=== PATIENT | female | born 1975 | race Caucasian/White ===

== ENCOUNTER → 2016-08-15 | Outpatient (CLI) | payer BC, OTHER ==
[2014-11-19 05:19] VITALS: BP 123/75
[~2016-08-15] MED LIST: DOCU-109 PO; GADOBUTROL 10 MMOL/10 ML VIAL IV ONE; METH-38 PO; Oxycodone Hcl/Acetaminophen PO
--- NOTE | 2016-08-15 16:29 | RAD ---
MRI Lumbar Spine without and with contrast History: Low back pain with right leg radiculopathy for one week, previous surgery Technique: Multiplanar, multi sequential pre-and postcontrast MR imaging was performed of the lumbar spine. Contrast: 10 cc Gadavist Comparison: November 17, 2014 Findings: Lumbar vertebral body stature and AP alignment are maintained. There is again mild degenerative disc disease at L3-4 and L4-5, posterior annular tears at these levels. There is no significant marrow edema. Conus terminates at T12-L1. There is no nodular enhancement of the conus or cauda equina, no enhancement in the intervertebral disc spaces. There are small hemangiomas greatest of L4 and L3. L1-L2: Spinal canal and neural foramina are adequate. L2-L3: Neural foramina and spinal canal are adequate. L3-L4: There is enhancing signal abnormality in the anterior right lateral recess compatible with fibrosis with more focal indentation upon the ventral thecal sac in the right lateral recess, extent similar compared with the previous exam. There is again mild to moderate narrowing of the far right lateral recess. Neural foramina are adequate. L4-5: There is left laminectomy defect. Neural foramina are adequate. There is very mild enhancing fibrosis about the descending left L5 nerve root in the lateral recess, spinal canal overall adequate. Previously seen extrusion in the left lateral recess is no longer visualized. L5-S1: Spinal canal and the neural foramina are adequate. Impression: 1. There has been interval left laminectomy L4-5. Previously seen extrusion extending below the L4-5 intervertebral disc space in the left lateral recess is no longer visualized. 2. There is more focal indentation upon the ventral thecal sac in the right lateral recess at L3-4 although associated enhancement suggestive of fibrosis rather than protrusion, again [id number] right lateral recess stenosis similar compared with the previous exam. 3. There is mild degenerative disc disease L3-4 and L4-5. Electronically signed by: Alex Mosqueda MD (08/15/2016 4:26 PM)
== END | disposition home or self-care (01) ==
LOC: MRI 15:50
PROVIDERS: ATTEND Internal Medicine
DX: M51.36 Other intervertebral disc degeneration, lumbar region (principal)
CPT/HCPCS: 72158; A9585

== ENCOUNTER → 2016-10-24 | Outpatient (CLI) | payer BC ==
[2014-11-19 05:19] VITALS: BP 123/75
[~2016-10-24] MED LIST changes: -GADOBUTROL 10 MMOL/10 ML VIAL IV ONE; +GADOBUTROL 7.5 MMOL/7.5 ML VIAL INT ART ONE; +IOHEXOL 300 MG/ML 50 ML VIAL. INT ART ONE; +LIDOCAINE 1% Multi-Dose 20 ML VIAL. ID ONE
--- NOTE | 2016-10-24 14:19 | KCIC ---
HIP ARTHROGRAM RIGHT History: Right hip pain for 2 months Technique: Patient was informed of the risks to include pain, infection, bleeding, allergic reaction, blood vessel or nerve injury. All questions were answered. Patient signed a written consent form for right hip injection prior to MRI. Patient was placed in supine position on the fluoroscopy table. The external skin site overlying the right hip was prepped and draped in the usual sterile fashion. Betadine was utilized for cleansing solution. 1% lidocaine was utilized for local anesthesia to the depth of the right femoral neck. 22-gauge spinal needle was advanced under fluoroscopy to depth of the bone. A mixture of 10 cc saline, 0.1 cc Gadavist, 5 cc Omnipaque 300 were injected during fluoroscopic visualization. There is appropriate intra-articular position of needle tip. Needle was removed. There were no immediate complications. Patient was applied. Patient was transferred to MRI suite for MRI evaluation of the right hip. Fluoroscopy time 40 seconds, two fluoroscopic images Impression: 1. Technically successful right hip injection without immediate complication. Electronically signed by: Alex Mosqueda MD (10/24/2016 2:16 PM) [facility]
--- NOTE | 2016-10-25 10:06 | KCIC ---
Examination: MR arthrogram right hip HISTORY: History of right hip pain COMPARISON: None available TECHNIQUE: Multiplanar, multisequence MR imaging of the right hip were performed after arthrogram injection. FINDINGS: The right femoral head is within the acetabulum. The attachment of the hamstring tendon to the ischial tuberosity grossly appears intact. The attachment of the gluteal tendons to the greater trochanter grossly appears intact. The attachment of the iliopsoas tendon to the lesser trochanter grossly appears intact. The attachment of the rectus femoris tendon to the anterior inferior iliac spine is intact. There is no acute fracture identified. There is minimal superficial fraying of the superior labrum without obvious labral tear. The muscle bulk grossly appears unremarkable. There is minimal fraying of the cartilage of the right hip. IMPRESSION: 1. Minimal superficial fraying of the superior labrum without a obvious labral tear. 2. Grade 1 Chondromalacia right hip joint. Electronically signed by: Virgilio Ruiz MD (10/25/2016 10:03 AM) [facility]
== END | disposition home or self-care (01) ==
LOC: KCIC 12:40
PROVIDERS: ATTEND Internal Medicine
DX: M94.251 Chondromalacia, right hip (principal)
CPT/HCPCS: 73525; 73722; A9585; Q9967

== ENCOUNTER → 2016-11-14 | Outpatient (CLI) | payer BC ==
[2014-11-19 05:19] VITALS: BP 123/75
[~2016-11-14] MED LIST changes: -GADOBUTROL 7.5 MMOL/7.5 ML VIAL INT ART ONE; -IOHEXOL 300 MG/ML 50 ML VIAL. INT ART ONE; -LIDOCAINE 1% Multi-Dose 20 ML VIAL. ID ONE
--- NOTE | 2016-11-14 15:18 | KCIC ---
MRI of the thoracic spine without contrast 11/14/2016 CLINICAL HISTORY: Mid back pain with right leg weakness and numbness. TECHNIQUE: Unenhanced T1-weighted, T2-weighted and inversion recovery sagittal and T1-weighted and T2 weighted axial images of the thoracic spine were obtained. T2-weighted sagittal images of the cervical, thoracic and lumbar spine were obtained for localization purposes. FINDINGS: Minimal S-shaped curvature of the thoracolumbar spine is seen. Degenerative signal changes are seen involving all of the disks of the thoracic spine. Degenerative signal changes are seen within the marrow surrounding these discs. No area of abnormal signal intensity is seen involving the thoracic spinal cord. Degenerative changes are seen involving mid and lower thoracic disc spaces consisting of minimal to mild generalized disc bulges and degenerative changes involving the facet joints. A left paracentral focal disc protrusion is seen at T7-8. This measures 3 mm in AP diameter. A right paracentral focal disc herniation is seen at T8-9. This measures 4 mm in AP diameter. These findings do not result in significant central spinal canal or neural foraminal stenosis at any level. IMPRESSION: Degenerative changes are seen involving the lower thoracic disc spaces. These findings do not result in significant central spinal canal or neural foraminal stenosis at any level. Electronically signed by: Ivan Valentino MD (11/14/2016 3:15 PM) [facility] [place]
--- NOTE | 2016-11-14 15:35 | KCIC ---
MRI of the lumbar spine without contrast 11/14/2016 CLINICAL HISTORY: Low back pain with right leg weakness and numbness. History of lumbar spine surgery in 2015. TECHNIQUE: Unenhanced T1-weighted and T2-weighted sagittal and axial and inversion recovery sagittal images of the lumbar spine were obtained. FINDINGS: Comparison study is dated 08/15/2016. Very mild S-shaped curvature of the thoracolumbar spine is seen. Degenerative signal changes are seen involving the L3-4 and L4-5 discs predominantly. Degenerative signal changes are seen within the marrow surrounding these discs. The conus medullaris is normal in morphology, position, and signal characteristics. The L1-2 and L2-3 disc spaces are within normal limits. At the L3-4 disc space there is a mild generalized disc bulge. Degenerative changes are seen involving the facet joints bilaterally. There is mild ligamentum flavum hypertrophy bilaterally. There is prominence of the posterior epidural fat. Superimposed on the disc bulge is a right paracentral focal disc herniation. This measures 6 mm in AP diameter. This has increased in size since the previous examination where it measured 3 mm in AP diameter. These findings when combined result in mild to moderate right greater than left central spinal canal stenosis which has increased since the previous examination. The disc herniation appears to impinge to some degree upon the right L4 nerve root within the right lateral aspect of the central spinal canal. No neural foraminal stenosis is seen. At the L4-5 disc space the patient is post left hemilaminotomy. What appears to be epidural scarring surrounds the left aspect of the thecal sac and the left L5 nerve root. There is a mild generalized disc bulge. Degenerative changes are seen involving the facet joints bilaterally. There is mild right-sided ligamentum flavum hypertrophy. These findings do not result in significant central spinal canal or neural foraminal stenosis. At the L5-S1 disc space there is a minimal generalized disc bulge. Degenerative changes are seen involving the facet joints bilaterally. These findings do not result in significant central spinal canal or neural foraminal stenosis. IMPRESSION: 1. Post left hemilaminotomy at L4-5. 2. The changes of degenerative disc disease are seen involving the mid and lower lumbar spine. At the L3-4 disc space a right paracentral focal disc herniation is seen. This has increased in size since the previous examination. It contributes to mild to moderate right greater than left central spinal canal stenosis and appears to impinge upon the right L4 nerve root within the right lateral aspect of the central spinal canal. Electronically signed by: Ivan Valentino MD (11/14/2016 3:33 PM) [facility]
== END | disposition home or self-care (01) ==
LOC: KCIC MRI 12:09
PROVIDERS: ATTEND Orthopaedic Surgery
DX: M51.26 Other intervertebral disc displacement, lumbar region (principal); M47.894 Other spondylosis, thoracic region; R53.1 Weakness; R20.0 Anesthesia of skin
CPT/HCPCS: 72146; 72148

== ENCOUNTER → 2018-04-11 | Outpatient (CLI) | payer BC ==
[2016-11-17 11:00] VITALS: BP 100/60
[~2018-04-11] MED LIST changes: +CETI10TA22 PO; +CHOL500062 PO; +DULO60CA6 PO; +GABA300C18 PO; +GABA600T7 PO; +LEFLUNOMIDE20 MG PO; +LISD20CA4 PO; +LISI1TAB7 PO; +OMEP20CA9 PO; +POLY17PO29 PO; +PRED2.5T PO; +RANI150C PO
--- NOTE | 2018-04-11 11:17 | KCIC ---
EXAM: Pelvic sonogram. HISTORY: Dysmenorrhea. TECHNIQUE: Transabdominal and transvaginal sonographic imaging of the pelvis was performed. COMPARISON: None. FINDINGS: The uterus measures 8.9 x 5.3 x 5.7 cm. The endometrial stripe measures 2.6 mm in thickness. There are uterine fibroids within the right uterine fundus measuring 9 mm and 10 mm. The ovaries are normal in size and demonstrate normal blood flow. There is no pelvic free fluid. There are small bilateral ovarian follicles with a dominant left ovarian follicle/follicular cyst measuring 1.7 cm. IMPRESSION: 1. Small uterine fibroids. 2. Suspected dominant left ovarian follicle/follicular cyst measuring 1.7 cm. Electronically signed by: Anita Guadalpue MD (04/11/2018 11:14 AM) [facility]
== END | disposition home or self-care (01) ==
LOC: KCIC US 09:24
PROVIDERS: ATTEND Obstetrics & Gynecology
DX: D25.9 Leiomyoma of uterus, unspecified (principal)
CPT/HCPCS: 76830; 76856

== ENCOUNTER → 2018-07-02 | Day surgery (SDC) | payer BC ==
[~2018-07-02] MED LIST changes: +0.9 % SODIUM CHLORIDE 10 ML DISP.SYRIN. IV PRN; +ACET-704 PO; +ACET1TAB33 PO; +ACETAMINOPHEN/CODEINE 300/30MG TABLET. PO PRN; +CALCIUM CARBONATE 500 MG TAB.CHEW PO PRN; +CYAN100016 SL; +DILT240T8 PO; +DULO30CA2 PO; +FLUT9.9S NS; +GLYCOPYRROLATE 1 MG/5 ML VIAL. ONE; +IV RINGERS,LACTATED 1000ML 1,000 ML IV SCH; +KETOROLAC 30 MG/ML INJ FOR OR. INJ ONE; +LIDOCAINE 1% PF 2 ML VIAL. ID PRN; +MAG HYDROX/ALUMINUM HYD/SIMETH 30 ML ORAL.SUSP PO PRN; +MIDAZOLAM HCL/PF 2 MG/2 ML VIAL. ONE; +NALOXONE 0.4 MG/ML VIAL. IV PRN; +NEOSTIGMINE METHYLSULFATE 5 MG/5 ML SYRINGE. ONE; +OMEP20CA10 PO; -OMEP20CA9 PO; +ONDANSETRON PF 4 MG/2 ML VIAL. IV PRN; +SEVOFLURANE 31 TO 60 MINUTES. IH ONE; +SIMETHICONE 80 MG TAB.CHEW PO PRN; +TURM1CAP PO; +VASOPRESSIN 20 UNIT/ML VIAL. ONE; +diphenhydrAMINE 50 MG/ML VIAL IV PRN; +diphenhydrAMINE HCL 25 MG CAPSULE PO PRN; +fentaNYL PF VIAL 100 MCG/2 ML VIAL ONE
--- NOTE | 2018-07-02 10:09 | PDOC ---
BRIEF OPERATIVE NOTE Date: July 02, 2018 Pre-Op Diagnosis menorrhagia, dysmenorrhea Post-Op Diagnosis same Procedure Performed diagnostic hysteroscopy with novasure endometrial ablation Surgeon Dr. Velarde Anesthesiologist Dr. Lee Anesthesia Type: General Blood Loss < 5cc IV Fluid see anesthesia records Urine Output straight cath prior to procedure Specimens Obtained none Findings blood in uterus, no obvious cavity abnormalities, uterus sounded to 8cm Complications none Operative Note [id number] SHAAN VELARDE MD July 02, 2018 10:09
[2018-07-02 10:56] LABS: U PREG PATIENT NEGATIVE (NEG)
[2018-07-02 11:00] VITALS: BP 125/82
--- NOTE | 2018-07-02 11:38 | OP ---
DATE OF SURGERY: 07/02/2018 PREOPERATIVE DIAGNOSES: Menorrhagia, dysmenorrhea with negative biopsy in the office. POSTOPERATIVE DIAGNOSES: Menorrhagia, dysmenorrhea with negative biopsy in the office. PROCEDURE: Diagnostic hysteroscopy with NovaSure endometrial ablation. SURGEON: Shaan Velarde MD DOWEL POINTER: OR personnel. ANESTHESIA: General. ANESTHESIOLOGIST: Dr. Lee. ESTIMATED BLOOD LOSS: Less than 5 mL. URINE OUTPUT: With a straight cath prior to procedure. FINDINGS: Blood in the uterus, no obvious cavity abnormalities. The uterus sounded to 8 cm. COMPLICATIONS: None. DESCRIPTION OF PROCEDURE: This patient was taken to the operating room where general anesthesia was placed. The patient was placed in dorsal lithotomy position in [facility] The patient's vagina was prepped and draped in the normal sterile fashion and a straight cath urine was done prior to my arrival. Upon my arrival, a timeout was performed. Once everyone agreed, a weighted speculum was placed in the patient's vagina. A single-tooth tenaculum was used to grasp the anterior lip of the cervix. She was already dilated to a 6-7 with the Hegar dilators. The 8-9 slid in easily. She sounded to 8. The diagnostic hysteroscopy was performed. Once it was done, the NovaSure device was set at a functional cavity length of 5, the width settled at 3.7. K-wire was placed around the cuff and it was placed up against the cervix. The device was enabled. A cavity assessment check was performed. Once it passed the cavity assessment check, it went straight into the ablation process, which lasted 72 seconds. Once it was done, the device was removed. The tenaculum was removed. There was minimal bleeding. The weighted speculum was removed and the procedure was ended. The patient was awakened from anesthesia and brought to recovery room in stable condition. SHAAN VELARDE MD DR: KATTY/usman JOB#: [id number] / [id number]
== END | disposition home or self-care (01) ==
LOC: SURG 08:01
PROVIDERS: ATTEND Obstetrics & Gynecology
DX: N92.0 Excessive and frequent menstruation with regular cycle (principal); N94.6 Dysmenorrhea, unspecified; Z88.5 Allergy status to narcotic agent; Z88.8 Allergy status to other drugs, medicaments and biological substances; E66.9 Obesity, unspecified; Z68.30 Body mass index [BMI] 30.0-30.9, adult; K21.9 Gastro-esophageal reflux disease without esophagitis; I10 Essential (primary) hypertension; F32.9 Major depressive disorder, single episode, unspecified; Z98.890 Other specified postprocedural states; Z98.84 Bariatric surgery status; Z79.899 Other long term (current) drug therapy; Z82.49 Family history of ischemic heart disease and other diseases of the circulatory system; Z90.49 Acquired absence of other specified parts of digestive tract
CPT/HCPCS: 58563; 81025; J1885; J2250; J2710; J3010; J3490; J7030; J7120

== ENCOUNTER 2018-12-09 14:25 | Inpatient (IN) | payer BC ==
[~2018-12-09] VITALS: Ht 172.7 cm; Wt 105.3 kg
[~2018-12-09 14:25] MED LIST changes: -0.9 % SODIUM CHLORIDE 10 ML DISP.SYRIN. IV PRN; -ACETAMINOPHEN/CODEINE 300/30MG TABLET. PO PRN; -CALCIUM CARBONATE 500 MG TAB.CHEW PO PRN; -GLYCOPYRROLATE 1 MG/5 ML VIAL. ONE; -IV RINGERS,LACTATED 1000ML 1,000 ML IV SCH; -KETOROLAC 30 MG/ML INJ FOR OR. INJ ONE; +LEFL10TA13 PO; -LEFLUNOMIDE20 MG PO; -LIDOCAINE 1% PF 2 ML VIAL. ID PRN; +LISI1TAB20 PO; -LISI1TAB7 PO; -MAG HYDROX/ALUMINUM HYD/SIMETH 30 ML ORAL.SUSP PO PRN; -MIDAZOLAM HCL/PF 2 MG/2 ML VIAL. ONE; -NALOXONE 0.4 MG/ML VIAL. IV PRN; -NEOSTIGMINE METHYLSULFATE 5 MG/5 ML SYRINGE. ONE; -ONDANSETRON PF 4 MG/2 ML VIAL. IV PRN; -SEVOFLURANE 31 TO 60 MINUTES. IH ONE; -SIMETHICONE 80 MG TAB.CHEW PO PRN; -VASOPRESSIN 20 UNIT/ML VIAL. ONE; -diphenhydrAMINE 50 MG/ML VIAL IV PRN; -diphenhydrAMINE HCL 25 MG CAPSULE PO PRN; -fentaNYL PF VIAL 100 MCG/2 ML VIAL ONE
--- NOTE | 2018-12-09 14:58 | PHYS DOC ---
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 Patient states she is having numbness in this area too. Patient states she's had the same thing before and the next step is losing her bowel and bladder. Patient states is his happened before. Patient states that she called and talked to her spinal surgeon Dr. Isidro he stated to go into the emergency room and have a CT done. Review of Systems Review of Systems Musculoskeletal: left low back pain or joint pain [] Neurologic: Denies headache, Left leg focal weakness or Left leg inner leg sensory changes [] All other systems were reviewed and found to be within normal limits, except as documented in this note. Current Medications Current Medications Current Medications Medications (Trade) Dose Ordered Sig/Edwin Start Time Stop Time Status Last Admin Dose Admin Cyclobenzaprine HCl (Flexeril) 10 mg 1X ONCE 12/09/18 15:00 12/09/18 15:01 DC 12/09/18 15:32 10 MG Allergies Allergies Allergies Coded Allergies Type Severity Reaction Last Updated Verified hydrocodone Allergy Severe THROAT SWELLED UP 07/02/18 Yes fentanyl Allergy Intermediate PATCH ONLY 07/02/18 Yes metoclopramide Allergy Intermediate hives 07/02/18 Yes morphine Allergy Intermediate rash 07/02/18 Yes oxycodone Allergy Intermediate THROAT SWELLED UP 07/02/18 Yes prochlorperazine Allergy Intermediate lockjaw 07/02/18 Yes Physical Exam Physical Exam Constitutional: Well developed, well nourished, no acute distress, non-toxic appearance. [] Skin: Warm, dry, no erythema, no rash. [] Back: Left lower back tenderness, no CVA tenderness. [] Extremities: No tenderness, no cyanosis, no clubbing, Left leg ROM not intact, no edema. [] Neurologic: Alert and oriented X 3, normal motor function, abnormal sensory function to to left inner leg, Left leg focal deficits noted. [] Psychologic: Affect normal, judgement normal, mood normal. [] Current Patient Data Vital Signs Vital Signs Date Time Temp Pulse Resp B/P (MAP) Pulse Ox O2 Delivery O2 Flow Rate FiO2 12/09/18 15:10 98.3 79 16 132/76 (94) 95 Room Air 98.3 Lab Values Laboratory Tests Test 12/09/18 14:50 12/09/18 15:01 12/09/18 15:20 Urine Color Yellow Urine Clarity Clear Urine pH 5.5 Urine Specific Clayton 1.015 Urine Protein Negative mg/dL (NEG-TRACE) Urine Glucose (UA) Negative mg/dL (NEG) Urine Ketones (Stick) Negative mg/dL (NEG) Urine Blood Negative (NEG) Urine Nitrite Negative (NEG) Urine Bilirubin Negative (NEG) Urine Urobilinogen Dipstick 0.2 mg/dL (0.2 mg/dL) Urine Leukocyte Esterase Negative (NEG) Urine RBC 0 /HPF (0-2) Urine WBC 1-4 /HPF (0-4) Urine Squamous Epithelial Cells Few /LPF Urine Bacteria Few /HPF (0-FEW) Urine Hyaline Casts Occasional /HPF Urine Mucus Mod /LPF POC Urine HCG, Qualitative Hcg negative (Negative) White Blood Count 8.2 x10^3/uL (4.0-11.0) Red Blood Count 4.56 x10^6/uL (3.50-5.40) Hemoglobin 13.4 g/dL (12.0-15.5) Hematocrit 38.9 % (36.0-47.0) Mean Corpuscular Volume 85 fL (79-100) Mean Corpuscular Hemoglobin 29 pg (25-35) Mean Corpuscular Hemoglobin Concent 35 g/dL (31-37) Red Cell Distribution Width 13.6 % (11.5-14.5) Platelet Count 243 x10^3/uL (140-400) Neutrophils (%) (Auto) 80 % (31-73) H Lymphocytes (%) (Auto) 14 % (24-48) L Monocytes (%) (Auto) 4 % (0-9) Eosinophils (%) (Auto) 1 % (0-3) Basophils (%) (Auto) 1 % (0-3) Neutrophils # (Auto) 6.5 x10^3/uL (1.8-7.7) Lymphocytes # (Auto) 1.2 x10^3/uL (1.0-4.8) Monocytes # (Auto) 0.4 x10^3/uL (0.0-1.1) Eosinophils # (Auto) 0.1 x10^3/uL (0.0-0.7) Basophils # (Auto) 0.1 x10^3/uL (0.0-0.2) Sodium Level 141 mmol/L (136-145) Potassium Level 4.3 mmol/L (3.5-5.1) Chloride Level 104 mmol/L (98-107) Carbon Dioxide Level 26 mmol/L (21-32) Anion Gap 11 (6-14) Blood Urea Nitrogen 15 mg/dL (7-20) Creatinine 0.8 mg/dL (0.6-1.0) Estimated GFR (Cockcroft-Gault) 77.6 BUN/Creatinine Ratio 19 (6-20) Glucose Level 120 mg/dL (70-99) H Calcium Level 9.2 mg/dL (8.5-10.1) Total Bilirubin 0.3 mg/dL (0.2-1.0) Aspartate Amino Transferase (AST) 21 U/L (15-37) Alanine Aminotransferase (ALT) 30 U/L (14-59) Alkaline Phosphatase 107 U/L (46-116) Total Protein 7.4 g/dL (6.4-8.2) Albumin 3.4 g/dL (3.4-5.0) Albumin/Globulin Ratio 0.9 (1.0-1.7) L Laboratory Tests 12/09/18 15:20 Laboratory Tests 12/09/18 15:20 EKG EKG [] Radiology/Procedures Radiology/Procedures [] Impressions: [facility] [address] [place], [place] [id number] IMAGING REPORT Signed PATIENT: DESTINEE AMAYA ACCOUNT: [id number] : 1975 LOCATION: ER AGE: 43 SEX: F EXAM STATUS: REG ER ORD. PHYSICIAN: JAYE GONZALEZ APRN REASON: Back pain x couple of days, also need sacrum PROCEDURE: CT LUMBAR SPINE WO CONTRAST Axial noncontrast CT imaging of the lumbar spine. Comparison made with MRI of the spine from 04/14/2018. INDICATION: Back pain for a couple days. FINDINGS: No fracture, subluxation or dislocation. There is normal alignment of the lumbar spine. Postoperative changes from hemilaminectomy are again identified. There is mild subcutaneous scarring as well. Minimal degenerative changes are identified. Electronically signed by: Jas Muller MD (12/09/2018 3:26 PM) [facility] DICTATED and SIGNED BY: JAS MULLER MD DATE: 12/09/18 1526 Course & Med Decision Making Course & Med Decision Making Patient is unable to lift her left leg. I had to lift her left leg to put it up into the bed. Skin is pink warm and dry. Pedal pulses present. Cap refill is less than 3 seconds. No swelling in the extremity. Patient has tenderness to the left lower back. Patient states that she's been taking ibuprofen and Advil last was taken at noon. Patient is allergic to all other pain medications. Patient is given a Flexeril she states that the medication helps her pain. 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 Patient also has herniated disks. 1600: Patient loss control of bladder. Spoken to Dr. Isidro told him of my examination findings and of the CT findings. He states the patient needs an MRI tonight of the thoracic and lumbar without contrast. Patient will be admitted to Dr Oden. Dr Oden states he will order the MRI thoracic and Lumbar without contrast. CT Lumbar: No fracture, subluxation or dislocation. There is normal alignment of the lumbar spine. Postoperative changes from hemilaminectomy are again identified. There is mild subcutaneous scarring as well. Minimal degenerative changes are identified. Dragon Disclaimer Dragon Disclaimer This electronic medical record was generated, in whole or in part, using a voice recognition dictation system. Departure Departure Impression: Primary Impression: Back pain Additional Impression: Paresthesia Disposition: ADMITTED INPATIENT Admitting Physician: HIMS Condition: STABLE Referrals: TONY ALAN MD (PCP) Problem Qualifiers Primary Impression: Back pain Back pain location: low back pain Chronicity: chronic Back pain laterality: left Sciatica presence: without sciatica Qualified Codes: M54.5 - Low back pain; G89.29 - Other chronic pain JAYE GONZALEZ AIR MOVING TECHNICIAN Dec 09, 2018 14:58
[2018-12-09] MEDS ORDERED: CYCLOBENZAPRINE 10 MG TABLET. PO ONE (15:00)
[2018-12-09 15:27] LABS: BILIRUBIN,URINE NEGATIVE (NEG); CLARITY,URINE CLEAR; COLOR,URINE YELLOW; NITRITE,URINE NEGATIVE (NEG); PH,URINE 5.5; PROTEIN,URINE NEGATIVE (NEG-TRACE); UROBILINOGEN,URINE 0.2 mg/dL (0.2 mg/dL)
--- NOTE | 2018-12-09 15:29 | RAD ---
Axial noncontrast CT imaging of the lumbar spine. Comparison made with MRI of the spine from 04/14/2018. INDICATION: Back pain for a couple days. FINDINGS: No fracture, subluxation or dislocation. There is normal alignment of the lumbar spine. Postoperative changes from hemilaminectomy are again identified. There is mild subcutaneous scarring as well. Minimal degenerative changes are identified. Electronically signed by: Jas Muller MD (12/09/2018 3:26 PM) [facility]
[2018-12-09 15:35] LABS: BASO # 0.1 x10^3/uL (0.0-0.2); BASO % 1 % (0-3); EOS # 0.1 x10^3/uL (0.0-0.7); EOS % 1 % (0-3); HEMATOCRIT 38.9 % (36.0-47.0); HEMOGLOBIN 13.4 g/dL (12.0-15.5); LYMPH # 1.2 x10^3/uL (1.0-4.8); LYMPH % 14 % (24-48); MEAN CORPUSCULAR HEMOGLOBIN 29 pg (25-35); MEAN CORPUSCULAR HGB CONC 35 g/dL (31-37); MEAN CORPUSCULAR VOLUME 85 fL (79-100); MONO # 0.4 x10^3/uL (0.0-1.1); MONO % 4 % (0-9); NEUT # 6.5 x10^3/uL (1.8-7.7); NEUT % 80 % (31-73); PLATELET COUNT 243 x10^3/uL (140-400); RED BLOOD COUNT 4.56 x10^6/uL (3.50-5.40); RED CELL DISTRIBUTION WIDTH 13.6 % (11.5-14.5); WHITE BLOOD COUNT 8.2 x10^3/uL (4.0-11.0)
[2018-12-09 15:35] LABS: BACTERIA,URINE FEW /HPF (0-FEW); HYALINE CASTS, URINE OCCASIONAL /HPF; RBC,URINE 0 /HPF (0-2); SQUAMOUS EPITHELIAL CELL,UR FEW /LPF
[2018-12-09 15:43] LABS: CALCIUM 9.2 mg/dL (8.5-10.1); CREATININE 0.8 mg/dL (0.6-1.0); GFR 77.6; POTASSIUM 4.3 mmol/L (3.5-5.1)
[2018-12-09 15:48] LABS: ALBUMIN 3.4 g/dL (3.4-5.0); ALBUMIN/GLOBULIN RATIO 0.9 (1.0-1.7); TOTAL BILIRUBIN 0.3 mg/dL (0.2-1.0); TOTAL PROTEIN 7.4 g/dL (6.4-8.2)
[2018-12-09] MEDS ORDERED: ONDANSETRON PF 4 MG/2 ML VIAL. IV PRN (16:30)
--- NOTE | 2018-12-09 16:41 | PDOC1 ---
History and Physical Date of Admission Date of Admission DATE: 12/09/18 TIME: 16:40 Identification/Chief Complaint Chief Complaint Right leg weakness Source Source: Patient History of Present Illness History of Present Illness Ms Sawyer is a 43yo F w/ PMHx Lupus, HTN, lumbar disc disease s/p right L3-4 decompression/discectomy 03/2018 with excellent outcome who presents to the ED c/o progressive lower back pain with radiation down her right leg with associated right leg weakness over the past 4 days. In ED she has lost bladder control. She denies a clear inciting event or injury. CT lumbar spine shows no acute bony abnormality, confirms prior surgery. She is being admitted for further diagnosis and treatment, unable to walk. Past Medical History Cardiovascular: HTN Pulmonary: No pertinent hx GI: No pertinent hx Heme/Onc: Anemia NOS Hepatobiliary: No pertinent hx Psych: No pertinent hx Musculoskeletal: low back pain Rheumatologic: Other (SLE) Infectious disease: No pertinent hx ENT: No pertinent hx Renal/: No pertinent hx Endocrine: No pertinent hx Dermatology: No pertinent hx Past Surgical History Past Surgical History: Other (Lumbar laminectomy/discectomy 3-4) Family History Family History: Hypertension Social History Smoke: No ALCOHOL: none Drugs: None Current Problem List Problem List Problems Medical Problems: (1) Back pain Status: Acute (2) Paresthesia Status: Acute Current Medications Current Medications Current Medications Cyclobenzaprine HCl (Flexeril) 10 mg 1X ONCE PO Last administered on 12/09/18at 15:32; Start 12/09/18 at 15:00; Stop 12/09/18 at 15:01; Status DC Ondansetron HCl (Zofran) 4 mg PRN Q8HRS PRN IV NAUSEA/VOMITING; Start 12/09/18 at 16:30; Stop 12/10/18 at 16:29 Hydromorphone HCl (Dilaudid) 0.5 mg 1X ONCE IV ; Start 12/09/18 at 16:45; Stop 12/09/18 at 16:46; Status UNV Methylprednisolone Sodium Succinate (SOLU-Medrol 125MG VIAL) 125 mg 1X ONCE IV ; Start 12/09/18 at 16:45; Stop 12/09/18 at 16:46; Status UNV Active Scripts Active Reported Acetaminophen-Cod #3 Tablet (Acetaminophen/Codeine Phosphate) 1 Each Tablet 1-2 Tab PO PRN Q4-6HRS PRN Tylenol With Codeine #3 Tablet (Acetaminophen/Codeine Phosphate) 1 Each Tablet 1 Tab PO PRN Q4HRS PRN Turmeric Complex 500 mg Cap (Turmeric/Turmeric Ext/Pepr Ext) 1 Each Capsule 1 Each PO DAILY Flonase Allergy Relief (Fluticasone Propionate) 9.9 Ml [place].susp 2 Sprays NS QHS Diltiazem 24Hr ER (LA) (Diltiazem HCl) 240 Mg Tab.er.24h 240 Mg PO DAILY Vitamin B-12 (Cyanocobalamin (Vitamin B-12)) 1,000 Mcg Tab.subl 1,000 Mcg SL DAILY Prednisone 2.5 Mg Tablet 2 Tab PO DAILY Cymbalta (Duloxetine Hcl) 30 Mg Capsule.dr 3 Cap PO DAILY Gabapentin 600 Mg Tablet 600 Mg PO QHS Leflunomide 20 Mg Tablet 20 Mg PO DAILY Zyrtec (Cetirizine Hcl) 10 Mg Tablet 1 Tab PO QHS Ranitidine Hcl 150 Mg Capsule 1 Cap PO QODAY Omeprazole 20 Mg Capsule.dr 1 Cap PO QODAY Allergies Allergies: Coded Allergies: hydrocodone (Verified Allergy, Severe, THROAT SWELLED UP, 07/02/18) TOLERATES HYDROMORPHONE IV fentanyl (Verified Allergy, Intermediate, PATCH ONLY, 07/02/18) burning all over and feeling " super hot" and welts all over metoclopramide (Verified Allergy, Intermediate, hives, 07/02/18) morphine (Verified Allergy, Intermediate, rash, 07/02/18) TOLERATES HYDROMORPHONE oxycodone (Verified Allergy, Intermediate, THROAT SWELLED UP, 07/02/18) TOLERATES HYDROMORPHONE IV prochlorperazine (Verified Allergy, Intermediate, lockjaw, 07/02/18) ROS General: No: Chills, Night Sweats, Fatigue, Malaise, Appetite, Other PSYCHOLOGICAL ROS: YES: Anxiety; No: Behavioral Disorder, Concentration difficultie, Decreased libido, Depression, Disorientation, Hallucinations, Hostility, Irritablity, Memory difficulties, Mood Swings, Obsessive thoughts, Physical abuse, Sexual abuse, Sleep disturbances, Suicidal ideation, Other Eyes: No Blurry vision, No Decreased vision, No Double vision, No Dry eyes, No Excessive tearing, No Eye Pain, No Itchy Eyes, No Loss of vision, No Photophobia, No Scotomata, No Uses contacts, No Uses glasses, No Other HEENT: No: Heacaches, Visual Changes, Hearing change, Nasal congestion, Nasal discharge, Oral lesions, Sinus pain, Sore Throat, Epistaxis, Sneezing, Snoring, Tinnitus, Vertigo, Vocal changes, Other ALLERGY AND IMMUNOLOGY: No: Hives, Insect Bite Sensitivity, Itchy/Watery Eyes, Nasal Congestion, Post Nasal Drip, Seasonal Allergies, Other Hematological and Lymphatic: No: Bleeding Problems, Blood Clots, Blood Transfusions, Brusing, Night Sweats, Pallor, Swollen Lymph Nodes, Other ENDOCRINE: No: Breast Changes, Galactorrhea, Hair Pattern Changes, Hot Flashes, Malaise/lethargy, Mood Swings, Palpitations, Polydipsia/polyuria, Skin Changes, Temperature Intolerance, Unexpected Weight Changes, Other Breast: No New/Changing Breast Lumps, No Nipple changes, No Nipple discharge, No Other Respiratory: No: Cough, Hemoptysis, Orthopnea, Pleuritic Pain, Shortness of breath, SOB with excertion, Sputum Changes, Stridor, Tachypnea, Wheezing, Other Cardiovascular: No Chest Pain, No Palpitations, No Orthopnea, No Paroxysmal Noc. Dyspnea, No Edema, No Lt Headedness, No Other Gastrointestinal: No Nausea, No Vomiting, No Abdominal Pain, No Diarrhea, No Constipation, No Melena, No Hematochezia, No Other Genitourinary: No Dysuria, No Frequency, No Incontinence, No Hematuria, No Retention, No Discharge, No Urgency, No Pain, No Flank Pain, No Other, No , No , No , No , No , No , No Musculoskeletal: Yes Gait Disturbance, Yes Joint Pain, Yes Muscle Pain, Yes Muscular Weakness; No Joint Stiffness, No Joint Swelling, No Pain In:, No Swelling In:, No Other Neurological: Yes Bowel/Bladder ControlChng, Yes Gait Disturbance, Yes Numbness/Tingling, Yes Weakness; No Behavorial Changes, No Confusion, No Dizziness, No Headaches, No Impaired Coord/balance, No Memory Loss, No Seizures, No Speech Problems, No Tremors, No Visual Changes, No Other Skin: No Dry Skin, No Eczema, No Hair Changes, No Lumps, No Mole Changes, No Mottling, No Nail Changes, No Pruritus, No Rash, No Skin Lesion Changes, No Other, No Acne Physical Exam General: Alert, Oriented X3, Cooperative, No acute distress HEENT: Atraumatic, PERRLA, EOMI, Mucous membr. moist/pink Lungs: Clear to auscultation, Normal air movement Heart: S1S2, RRR, no gallops, no murmurs Abdomen: Normal bowel sounds, Soft, No tenderness, No hepatosplenomegaly, No masses Rectal Exam: not examined Extremities: No clubbing, No cyanosis, No edema, Normal pulses, Other (Lumbar tenderness and paraspinal tenderness) Skin: No rashes, No breakdown, No significant lesion Neuro: Normal speech, Normal tone, Cranial nerves 3-12 NL, Other (Right leg weak 4/5, reduced SLR) Psych/Mental Status: Mental status NL, Mood NL Vitals Vitals Vital Signs Date Time Temp Pulse Resp B/P (MAP) Pulse Ox O2 Delivery O2 Flow Rate FiO2 12/09/18 15:10 98.3 79 16 132/76 (94) 95 Room Air 98.3 Labs Labs Laboratory Tests Test 12/09/18 14:50 12/09/18 15:01 12/09/18 15:20 Urine Color Yellow Urine Clarity Clear Urine pH 5.5 Urine Specific [place] 1.015 Urine Protein Negative mg/dL (NEG-TRACE) Urine Glucose (UA) Negative mg/dL (NEG) Urine Ketones (Stick) Negative mg/dL (NEG) Urine Blood Negative (NEG) Urine Nitrite Negative (NEG) Urine Bilirubin Negative (NEG) Urine Urobilinogen Dipstick 0.2 mg/dL (0.2 mg/dL) Urine Leukocyte Esterase Negative (NEG) Urine RBC 0 /HPF (0-2) Urine WBC 1-4 /HPF (0-4) Urine Squamous Epithelial Cells Few /LPF Urine Bacteria Few /HPF (0-FEW) Urine Hyaline Casts Occasional /HPF Urine Mucus Mod /LPF Bedside Urine HCG, Qualitative Hcg negative (Negative) White Blood Count 8.2 x10^3/uL (4.0-11.0) Red Blood Count 4.56 x10^6/uL (3.50-5.40) Hemoglobin 13.4 g/dL (12.0-15.5) Hematocrit 38.9 % (36.0-47.0) Mean Corpuscular Volume 85 fL (79-100) Mean Corpuscular Hemoglobin 29 pg (25-35) Mean Corpuscular Hemoglobin Concent 35 g/dL (31-37) Red Cell Distribution Width 13.6 % (11.5-14.5) Platelet Count 243 x10^3/uL (140-400) Neutrophils (%) (Auto) 80 % (31-73) Lymphocytes (%) (Auto) 14 % (24-48) Monocytes (%) (Auto) 4 % (0-9) Eosinophils (%) (Auto) 1 % (0-3) Basophils (%) (Auto) 1 % (0-3) Neutrophils # (Auto) 6.5 x10^3/uL (1.8-7.7) Lymphocytes # (Auto) 1.2 x10^3/uL (1.0-4.8) Monocytes # (Auto) 0.4 x10^3/uL (0.0-1.1) Eosinophils # (Auto) 0.1 x10^3/uL (0.0-0.7) Basophils # (Auto) 0.1 x10^3/uL (0.0-0.2) Sodium Level 141 mmol/L (136-145) Potassium Level 4.3 mmol/L (3.5-5.1) Chloride Level 104 mmol/L (98-107) Carbon Dioxide Level 26 mmol/L (21-32) Anion Gap 11 (6-14) Blood Urea Nitrogen 15 mg/dL (7-20) Creatinine 0.8 mg/dL (0.6-1.0) Estimated GFR (Cockcroft-Gault) 77.6 BUN/Creatinine Ratio 19 (6-20) Glucose Level 120 mg/dL (70-99) Calcium Level 9.2 mg/dL (8.5-10.1) Total Bilirubin 0.3 mg/dL (0.2-1.0) Aspartate Amino Transf (AST/SGOT) 21 U/L (15-37) Alanine Aminotransferase (ALT/SGPT) 30 U/L (14-59) Alkaline Phosphatase 107 U/L (46-116) Total Protein 7.4 g/dL (6.4-8.2) Albumin 3.4 g/dL (3.4-5.0) Albumin/Globulin Ratio 0.9 (1.0-1.7) Laboratory Tests Test 12/09/18 14:50 12/09/18 15:01 12/09/18 15:20 Urine Color Yellow Urine Clarity Clear Urine pH 5.5 Urine Specific [place] 1.015 Urine Protein Negative mg/dL (NEG-TRACE) Urine Glucose (UA) Negative mg/dL (NEG) Urine Ketones (Stick) Negative mg/dL (NEG) Urine Blood Negative (NEG) Urine Nitrite Negative (NEG) Urine Bilirubin Negative (NEG) Urine Urobilinogen Dipstick 0.2 mg/dL (0.2 mg/dL) Urine Leukocyte Esterase Negative (NEG) Urine RBC 0 /HPF (0-2) Urine WBC 1-4 /HPF (0-4) Urine Squamous Epithelial Cells Few /LPF Urine Bacteria Few /HPF (0-FEW) Urine Hyaline Casts Occasional /HPF Urine Mucus Mod /LPF Bedside Urine HCG, Qualitative Hcg negative (Negative) White Blood Count 8.2 x10^3/uL (4.0-11.0) Red Blood Count 4.56 x10^6/uL (3.50-5.40) Hemoglobin 13.4 g/dL (12.0-15.5) Hematocrit 38.9 % (36.0-47.0) Mean Corpuscular Volume 85 fL (79-100) Mean Corpuscular Hemoglobin 29 pg (25-35) Mean Corpuscular Hemoglobin Concent 35 g/dL (31-37) Red Cell Distribution Width 13.6 % (11.5-14.5) Platelet Count 243 x10^3/uL (140-400) Neutrophils (%) (Auto) 80 % (31-73) Lymphocytes (%) (Auto) 14 % (24-48) Monocytes (%) (Auto) 4 % (0-9) Eosinophils (%) (Auto) 1 % (0-3) Basophils (%) (Auto) 1 % (0-3) Neutrophils # (Auto) 6.5 x10^3/uL (1.8-7.7) Lymphocytes # (Auto) 1.2 x10^3/uL (1.0-4.8) Monocytes # (Auto) 0.4 x10^3/uL (0.0-1.1) Eosinophils # (Auto) 0.1 x10^3/uL (0.0-0.7) Basophils # (Auto) 0.1 x10^3/uL (0.0-0.2) Sodium Level 141 mmol/L (136-145) Potassium Level 4.3 mmol/L (3.5-5.1) Chloride Level 104 mmol/L (98-107) Carbon Dioxide Level 26 mmol/L (21-32) Anion Gap 11 (6-14) Blood Urea Nitrogen 15 mg/dL (7-20) Creatinine 0.8 mg/dL (0.6-1.0) Estimated GFR (Cockcroft-Gault) 77.6 BUN/Creatinine Ratio 19 (6-20) Glucose Level 120 mg/dL (70-99) Calcium Level 9.2 mg/dL (8.5-10.1) Total Bilirubin 0.3 mg/dL (0.2-1.0) Aspartate Amino Transf (AST/SGOT) 21 U/L (15-37) Alanine Aminotransferase (ALT/SGPT) 30 U/L (14-59) Alkaline Phosphatase 107 U/L (46-116) Total Protein 7.4 g/dL (6.4-8.2) Albumin 3.4 g/dL (3.4-5.0) Albumin/Globulin Ratio 0.9 (1.0-1.7) VTE Prophylaxis Ordered VTE Prophylaxis Devices: Yes VTE Pharmacological Prophylaxi: No Assessment/Plan Assessment/Plan A/P: Acute lumbar pain - multiple drug allergies. Will stress dose steroids as she takes chronic prednisone for her lupus. Flexeril. Dilaudid and tramadol prn Right leg weakness - possibly radiculopathy, but may be acute impingement of L5- S1. MRI ordered. Decadron. Consult Dr. Isidro Urinary incontinence - ED notes rectal tone positive. MRI lumbar ordered Lupus - no hx of nephritis, no recent flare. will stress dose steroids now. Cont arava HTN - cont meds FEN - NPO after midnight PPX - SCDs FULL CODE Dispo - inpatient for inability to walk,pain control HAYLEY HILTON MD Dec 09, 2018 16:41
[2018-12-09] MEDS ORDERED: methylPREDNISolone SOD SUCC PF 125 MG/2 ML VIAL. IV ONE (16:45)
[2018-12-09] MEDS ORDERED: HYDROmorphone 2 MG/ML VIAL IV ONE (16:45)
[2018-12-09 18:18] VITALS: BP 117/70
--- NOTE | 2018-12-09 18:55 | PDOC2 ---
CONSULT Date of Consult Date of Consult DATE: 12/09/18 TIME: 18:50 Reason for Consult Reason for Consult: right leg weakness History of Present Illness Reason for Visit: Pt seen and examined in ED. Full consult to follow. 43 F who underwent right L3-4 decompression/discectomy 03/2018 with good result. Over the past several days, she has developed symptoms in a similar distribution as prior with right leg weakness. She denies a clear inciting event or injury. Dictated #[id number] Current Problem List Problem List Problems Medical Problems: (1) Back pain Status: Acute (2) Paresthesia Status: Acute Current Medications Current Medications Current Medications Cyclobenzaprine HCl (Flexeril) 10 mg 1X ONCE PO Last administered on 12/09/18at 15:32; Start 12/09/18 at 15:00; Stop 12/09/18 at 15:01; Status DC Ondansetron HCl (Zofran) 4 mg PRN Q8HRS PRN IV NAUSEA/VOMITING Last administered on 12/09/18at 17:30; Start 12/09/18 at 16:30; Stop 12/10/18 at 16:29 Hydromorphone HCl (Dilaudid) 0.5 mg 1X ONCE IV Last administered on 12/09/18at 17:31; Start 12/09/18 at 16:45; Stop 12/09/18 at 16:46; Status DC Methylprednisolone Sodium Succinate (SOLU-Medrol 125MG VIAL) 125 mg 1X ONCE IV Last administered on 12/09/18at 17:30; Start 12/09/18 at 16:45; Stop 12/09/18 at 16:46; Status DC Active Scripts Active Reported Acetaminophen-Cod #3 Tablet (Acetaminophen/Codeine Phosphate) 1 Each Tablet 1-2 Tab PO PRN Q4-6HRS PRN Tylenol With Codeine #3 Tablet (Acetaminophen/Codeine Phosphate) 1 Each Tablet 1 Tab PO PRN Q4HRS PRN Turmeric Complex 500 mg Cap (Turmeric/Turmeric Ext/Pepr Ext) 1 Each Capsule 1 Each PO DAILY Flonase Allergy Relief (Fluticasone Propionate) 9.9 Ml [place].susp 2 Sprays NS QHS Diltiazem 24Hr ER (LA) (Diltiazem HCl) 240 Mg Tab.er.24h 240 Mg PO DAILY Vitamin B-12 (Cyanocobalamin (Vitamin B-12)) 1,000 Mcg Tab.subl 1,000 Mcg SL DAILY Prednisone 2.5 Mg Tablet 2 Tab PO DAILY Cymbalta (Duloxetine Hcl) 30 Mg Capsule. 3 Cap PO DAILY Gabapentin 600 Mg Tablet 600 Mg PO QHS Leflunomide 20 Mg Tablet 20 Mg PO DAILY Zyrtec (Cetirizine Hcl) 10 Mg Tablet 1 Tab PO QHS Ranitidine Hcl 150 Mg Capsule 1 Cap PO QODAY Omeprazole 20 Mg Capsule.dr 1 Cap PO QODAY Allergies Allergies: Coded Allergies: hydrocodone (Verified Allergy, Severe, THROAT SWELLED UP, 07/02/18) TOLERATES HYDROMORPHONE IV fentanyl (Verified Allergy, Intermediate, PATCH ONLY, 07/02/18) burning all over and feeling " super hot" and welts all over metoclopramide (Verified Allergy, Intermediate, hives, 07/02/18) morphine (Verified Allergy, Intermediate, rash, 07/02/18) TOLERATES HYDROMORPHONE oxycodone (Verified Allergy, Intermediate, THROAT SWELLED UP, 07/02/18) TOLERATES HYDROMORPHONE IV prochlorperazine (Verified Allergy, Intermediate, lockjaw, 07/02/18) Vitals VITALS Vital Signs Date Time Temp Pulse Resp B/P (MAP) Pulse Ox O2 Delivery O2 Flow Rate FiO2 12/09/18 18:18 98.1 63 17 117/70 (86) 95 Room Air 98.1 Labs Labs Laboratory Tests Test 12/09/18 14:50 12/09/18 15:01 12/09/18 15:20 Urine Color Yellow Urine Clarity Clear Urine pH 5.5 Urine Specific [place] 1.015 Urine Protein Negative mg/dL (NEG-TRACE) Urine Glucose (UA) Negative mg/dL (NEG) Urine Ketones (Stick) Negative mg/dL (NEG) Urine Blood Negative (NEG) Urine Nitrite Negative (NEG) Urine Bilirubin Negative (NEG) Urine Urobilinogen Dipstick 0.2 mg/dL (0.2 mg/dL) Urine Leukocyte Esterase Negative (NEG) Urine RBC 0 /HPF (0-2) Urine WBC 1-4 /HPF (0-4) Urine Squamous Epithelial Cells Few /LPF Urine Bacteria Few /HPF (0-FEW) Urine Hyaline Casts Occasional /HPF Urine Mucus Mod /LPF Bedside Urine HCG, Qualitative Hcg negative (Negative) White Blood Count 8.2 x10^3/uL (4.0-11.0) Red Blood Count 4.56 x10^6/uL (3.50-5.40) Hemoglobin 13.4 g/dL (12.0-15.5) Hematocrit 38.9 % (36.0-47.0) Mean Corpuscular Volume 85 fL (79-100) Mean Corpuscular Hemoglobin 29 pg (25-35) Mean Corpuscular Hemoglobin Concent 35 g/dL (31-37) Red Cell Distribution Width 13.6 % (11.5-14.5) Platelet Count 243 x10^3/uL (140-400) Neutrophils (%) (Auto) 80 % (31-73) Lymphocytes (%) (Auto) 14 % (24-48) Monocytes (%) (Auto) 4 % (0-9) Eosinophils (%) (Auto) 1 % (0-3) Basophils (%) (Auto) 1 % (0-3) Neutrophils # (Auto) 6.5 x10^3/uL (1.8-7.7) Lymphocytes # (Auto) 1.2 x10^3/uL (1.0-4.8) Monocytes # (Auto) 0.4 x10^3/uL (0.0-1.1) Eosinophils # (Auto) 0.1 x10^3/uL (0.0-0.7) Basophils # (Auto) 0.1 x10^3/uL (0.0-0.2) Sodium Level 141 mmol/L (136-145) Potassium Level 4.3 mmol/L (3.5-5.1) Chloride Level 104 mmol/L (98-107) Carbon Dioxide Level 26 mmol/L (21-32) Anion Gap 11 (6-14) Blood Urea Nitrogen 15 mg/dL (7-20) Creatinine 0.8 mg/dL (0.6-1.0) Estimated GFR (Cockcroft-Gault) 77.6 BUN/Creatinine Ratio 19 (6-20) Glucose Level 120 mg/dL (70-99) Calcium Level 9.2 mg/dL (8.5-10.1) Total Bilirubin 0.3 mg/dL (0.2-1.0) Aspartate Amino Transf (AST/SGOT) 21 U/L (15-37) Alanine Aminotransferase (ALT/SGPT) 30 U/L (14-59) Alkaline Phosphatase 107 U/L (46-116) Total Protein 7.4 g/dL (6.4-8.2) Albumin 3.4 g/dL (3.4-5.0) Albumin/Globulin Ratio 0.9 (1.0-1.7) Laboratory Tests Test 12/09/18 14:50 12/09/18 15:01 12/09/18 15:20 Urine Color Yellow Urine Clarity Clear Urine pH 5.5 Urine Specific [place] 1.015 Urine Protein Negative mg/dL (NEG-TRACE) Urine Glucose (UA) Negative mg/dL (NEG) Urine Ketones (Stick) Negative mg/dL (NEG) Urine Blood Negative (NEG) Urine Nitrite Negative (NEG) Urine Bilirubin Negative (NEG) Urine Urobilinogen Dipstick 0.2 mg/dL (0.2 mg/dL) Urine Leukocyte Esterase Negative (NEG) Urine RBC 0 /HPF (0-2) Urine WBC 1-4 /HPF (0-4) Urine Squamous Epithelial Cells Few /LPF Urine Bacteria Few /HPF (0-FEW) Urine Hyaline Casts Occasional /HPF Urine Mucus Mod /LPF Bedside Urine HCG, Qualitative Hcg negative (Negative) White Blood Count 8.2 x10^3/uL (4.0-11.0) Red Blood Count 4.56 x10^6/uL (3.50-5.40) Hemoglobin 13.4 g/dL (12.0-15.5) Hematocrit 38.9 % (36.0-47.0) Mean Corpuscular Volume 85 fL (79-100) Mean Corpuscular Hemoglobin 29 pg (25-35) Mean Corpuscular Hemoglobin Concent 35 g/dL (31-37) Red Cell Distribution Width 13.6 % (11.5-14.5) Platelet Count 243 x10^3/uL (140-400) Neutrophils (%) (Auto) 80 % (31-73) Lymphocytes (%) (Auto) 14 % (24-48) Monocytes (%) (Auto) 4 % (0-9) Eosinophils (%) (Auto) 1 % (0-3) Basophils (%) (Auto) 1 % (0-3) Neutrophils # (Auto) 6.5 x10^3/uL (1.8-7.7) Lymphocytes # (Auto) 1.2 x10^3/uL (1.0-4.8) Monocytes # (Auto) 0.4 x10^3/uL (0.0-1.1) Eosinophils # (Auto) 0.1 x10^3/uL (0.0-0.7) Basophils # (Auto) 0.1 x10^3/uL (0.0-0.2) Sodium Level 141 mmol/L (136-145) Potassium Level 4.3 mmol/L (3.5-5.1) Chloride Level 104 mmol/L (98-107) Carbon Dioxide Level 26 mmol/L (21-32) Anion Gap 11 (6-14) Blood Urea Nitrogen 15 mg/dL (7-20) Creatinine 0.8 mg/dL (0.6-1.0) Estimated GFR (Cockcroft-Gault) 77.6 BUN/Creatinine Ratio 19 (6-20) Glucose Level 120 mg/dL (70-99) Calcium Level 9.2 mg/dL (8.5-10.1) Total Bilirubin 0.3 mg/dL (0.2-1.0) Aspartate Amino Transf (AST/SGOT) 21 U/L (15-37) Alanine Aminotransferase (ALT/SGPT) 30 U/L (14-59) Alkaline Phosphatase 107 U/L (46-116) Total Protein 7.4 g/dL (6.4-8.2) Albumin 3.4 g/dL (3.4-5.0) Albumin/Globulin Ratio 0.9 (1.0-1.7) Assessment/Plan Assessment/Plan Awaiting thoracolumbar MRI. Possible recurrent disk given history. NPO. CANDIS GÓMEZ MD Dec 09, 2018 18:55
[2018-12-09 19:00] VITALS: BP 108/52
[2018-12-09] MEDS ORDERED: CYCLOBENZAPRINE 10 MG TABLET. PO PRN (20:15)
[2018-12-09] MEDS: traMADol 50 MG TABLET PO PRN (20:55)
[2018-12-09] MEDS: CETIRIZINE HCL 10 MG TABLET. PO SCH (20:55)
[2018-12-09] MEDS: GABAPENTIN 300 MG CAPSULE. PO SCH (20:55)
[2018-12-09] MEDS: FLUTICASONE 50MCG/NASAL SPRAY 16GM BOTTLE. NS SCH (20:55)
[2018-12-09] MEDS: HYDROmorphone 2 MG/ML VIAL IVP PRN (22:30)
[2018-12-09 23:00] VITALS: BP 129/71
[2018-12-09] MEDS: DEXAMETHASONE SOD PHOS 4 MG/ML VIAL IVP SCH (23:30)
[2018-12-10] VITALS (8 sets, daily range): BP systolic 107–124; BP diastolic 52–71
[2018-12-10] MEDS: HYDROmorphone 2 MG/ML VIAL IVP PRN ×4 (02:34→20:23)
[2018-12-10] MEDS: DEXAMETHASONE SOD PHOS 4 MG/ML VIAL IVP SCH ×2 (05:44→21:27)
[2018-12-10] MEDS ORDERED: PANTOPRAZOLE 40 MG TABLET.DR. PO SCH (07:30)
[2018-12-10] MEDS: LEFLUNOMIDE 10 MG TABLET. PO SCH (08:39)
[2018-12-10] MEDS: CYANOCOBALAMIN (VITAMIN B-12) 1,000 MCG TABLET. PO SCH (08:40)
[2018-12-10] MEDS: DULoxetine HCL 30 MG CAPSULE.DR PO SCH (08:40)
--- NOTE | 2018-12-10 08:51 | PDOC ---
PROGRESS NOTES Chief Complaint Chief Complaint A/P: Acute lumbar pain - multiple drug allergies. Will stress dose steroids as she takes chronic prednisone for her lupus. Flexeril. Dilaudid and tramadol prn Right leg weakness - possibly radiculopathy, but may be acute impingement of L5- S1. MRI ordered. Decadron. Consult Dr. Isidro Urinary incontinence - ED notes rectal tone positive. MRI lumbar ordered Lupus - no hx of nephritis, no recent flare. will stress dose steroids now. Cont arava HTN - cont meds FEN - NPO after midnight PPX - SCDs FULL CODE Dispo - inpatient for inability to walk,pain control History of Present Illness History of Present Illness Ms Sawyer is a 43yo F w/ PMHx Lupus, HTN, lumbar disc disease s/p right L3-4 decompression/discectomy 03/2018 with excellent outcome who presents to the ED c /o progressive lower back pain with radiation down her right leg with associated right leg weakness over the past 4 days. In ED she has lost bladder control. She denies a clear inciting event or injury. CT lumbar spine shows no acute bony abnormality, confirms prior surgery. She is being admitted for further diagnosis and treatment, unable to walk. Still in severe pain. Plan for OR this morning. MRI completed - L3-4, a disc protrusion narrows the right lateral recess with compression of the descending right L4 root nerve root and abutment of the descending right L5 nerve root. Correlate for right L4 and L5 radiculopathy. Vitals Vitals Vital Signs Date Time Temp Pulse Resp B/P (MAP) Pulse Ox O2 Delivery O2 Flow Rate FiO2 12/10/18 07:10 Room Air 12/10/18 07:00 97.9 71 16 107/54 (71) 93 97.9 Physical Exam General: Alert, Oriented X3, Cooperative, No acute distress Lungs: Clear, Wheezing Abdomen: Normal bowel sounds, Soft, No tenderness, No hepatosplenomegaly, No masses Extremities: No clubbing, No cyanosis, No edema, Normal pulses, Other (Lumbar tenderness and paraspinal tenderness) Skin: No rashes, No breakdown, No significant lesion Labs LABS Laboratory Tests Test 12/09/18 14:50 12/09/18 15:01 12/09/18 15:20 Urine Color Yellow Urine Clarity Clear Urine pH 5.5 Urine Specific [place] 1.015 Urine Protein Negative mg/dL (NEG-TRACE) Urine Glucose (UA) Negative mg/dL (NEG) Urine Ketones (Stick) Negative mg/dL (NEG) Urine Blood Negative (NEG) Urine Nitrite Negative (NEG) Urine Bilirubin Negative (NEG) Urine Urobilinogen Dipstick 0.2 mg/dL (0.2 mg/dL) Urine Leukocyte Esterase Negative (NEG) Urine RBC 0 /HPF (0-2) Urine WBC 1-4 /HPF (0-4) Urine Squamous Epithelial Cells Few /LPF Urine Bacteria Few /HPF (0-FEW) Urine Hyaline Casts Occasional /HPF Urine Mucus Mod /LPF Bedside Urine HCG, Qualitative Hcg negative (Negative) White Blood Count 8.2 x10^3/uL (4.0-11.0) Red Blood Count 4.56 x10^6/uL (3.50-5.40) Hemoglobin 13.4 g/dL (12.0-15.5) Hematocrit 38.9 % (36.0-47.0) Mean Corpuscular Volume 85 fL (79-100) Mean Corpuscular Hemoglobin 29 pg (25-35) Mean Corpuscular Hemoglobin Concent 35 g/dL (31-37) Red Cell Distribution Width 13.6 % (11.5-14.5) Platelet Count 243 x10^3/uL (140-400) Neutrophils (%) (Auto) 80 % (31-73) Lymphocytes (%) (Auto) 14 % (24-48) Monocytes (%) (Auto) 4 % (0-9) Eosinophils (%) (Auto) 1 % (0-3) Basophils (%) (Auto) 1 % (0-3) Neutrophils # (Auto) 6.5 x10^3/uL (1.8-7.7) Lymphocytes # (Auto) 1.2 x10^3/uL (1.0-4.8) Monocytes # (Auto) 0.4 x10^3/uL (0.0-1.1) Eosinophils # (Auto) 0.1 x10^3/uL (0.0-0.7) Basophils # (Auto) 0.1 x10^3/uL (0.0-0.2) Sodium Level 141 mmol/L (136-145) Potassium Level 4.3 mmol/L (3.5-5.1) Chloride Level 104 mmol/L (98-107) Carbon Dioxide Level 26 mmol/L (21-32) Anion Gap 11 (6-14) Blood Urea Nitrogen 15 mg/dL (7-20) Creatinine 0.8 mg/dL (0.6-1.0) Estimated GFR (Cockcroft-Gault) 77.6 BUN/Creatinine Ratio 19 (6-20) Glucose Level 120 mg/dL (70-99) Calcium Level 9.2 mg/dL (8.5-10.1) Total Bilirubin 0.3 mg/dL (0.2-1.0) Aspartate Amino Transf (AST/SGOT) 21 U/L (15-37) Alanine Aminotransferase (ALT/SGPT) 30 U/L (14-59) Alkaline Phosphatase 107 U/L (46-116) Total Protein 7.4 g/dL (6.4-8.2) Albumin 3.4 g/dL (3.4-5.0) Albumin/Globulin Ratio 0.9 (1.0-1.7) Assessment and Plan Assessmemt and Plan Problems Medical Problems: (1) Back pain Status: Acute (2) Paresthesia Status: Acute Comment Review of Relevant I have reviewed the following items juan daniel (where applicable) has been applied. Labs Laboratory Tests Test 12/09/18 14:50 12/09/18 15:01 12/09/18 15:20 Urine Color Yellow Urine Clarity Clear Urine pH 5.5 Urine Specific [place] 1.015 Urine Protein Negative mg/dL (NEG-TRACE) Urine Glucose (UA) Negative mg/dL (NEG) Urine Ketones (Stick) Negative mg/dL (NEG) Urine Blood Negative (NEG) Urine Nitrite Negative (NEG) Urine Bilirubin Negative (NEG) Urine Urobilinogen Dipstick 0.2 mg/dL (0.2 mg/dL) Urine Leukocyte Esterase Negative (NEG) Urine RBC 0 /HPF (0-2) Urine WBC 1-4 /HPF (0-4) Urine Squamous Epithelial Cells Few /LPF Urine Bacteria Few /HPF (0-FEW) Urine Hyaline Casts Occasional /HPF Urine Mucus Mod /LPF Bedside Urine HCG, Qualitative Hcg negative (Negative) White Blood Count 8.2 x10^3/uL (4.0-11.0) Red Blood Count 4.56 x10^6/uL (3.50-5.40) Hemoglobin 13.4 g/dL (12.0-15.5) Hematocrit 38.9 % (36.0-47.0) Mean Corpuscular Volume 85 fL (79-100) Mean Corpuscular Hemoglobin 29 pg (25-35) Mean Corpuscular Hemoglobin Concent 35 g/dL (31-37) Red Cell Distribution Width 13.6 % (11.5-14.5) Platelet Count 243 x10^3/uL (140-400) Neutrophils (%) (Auto) 80 % (31-73) Lymphocytes (%) (Auto) 14 % (24-48) Monocytes (%) (Auto) 4 % (0-9) Eosinophils (%) (Auto) 1 % (0-3) Basophils (%) (Auto) 1 % (0-3) Neutrophils # (Auto) 6.5 x10^3/uL (1.8-7.7) Lymphocytes # (Auto) 1.2 x10^3/uL (1.0-4.8) Monocytes # (Auto) 0.4 x10^3/uL (0.0-1.1) Eosinophils # (Auto) 0.1 x10^3/uL (0.0-0.7) Basophils # (Auto) 0.1 x10^3/uL (0.0-0.2) Sodium Level 141 mmol/L (136-145) Potassium Level 4.3 mmol/L (3.5-5.1) Chloride Level 104 mmol/L (98-107) Carbon Dioxide Level 26 mmol/L (21-32) Anion Gap 11 (6-14) Blood Urea Nitrogen 15 mg/dL (7-20) Creatinine 0.8 mg/dL (0.6-1.0) Estimated GFR (Cockcroft-Gault) 77.6 BUN/Creatinine Ratio 19 (6-20) Glucose Level 120 mg/dL (70-99) Calcium Level 9.2 mg/dL (8.5-10.1) Total Bilirubin 0.3 mg/dL (0.2-1.0) Aspartate Amino Transf (AST/SGOT) 21 U/L (15-37) Alanine Aminotransferase (ALT/SGPT) 30 U/L (14-59) Alkaline Phosphatase 107 U/L (46-116) Total Protein 7.4 g/dL (6.4-8.2) Albumin 3.4 g/dL (3.4-5.0) Albumin/Globulin Ratio 0.9 (1.0-1.7) Laboratory Tests Test 12/09/18 14:50 12/09/18 15:01 12/09/18 15:20 Urine Color Yellow Urine Clarity Clear Urine pH 5.5 Urine Specific [place] 1.015 Urine Protein Negative mg/dL (NEG-TRACE) Urine Glucose (UA) Negative mg/dL (NEG) Urine Ketones (Stick) Negative mg/dL (NEG) Urine Blood Negative (NEG) Urine Nitrite Negative (NEG) Urine Bilirubin Negative (NEG) Urine Urobilinogen Dipstick 0.2 mg/dL (0.2 mg/dL) Urine Leukocyte Esterase Negative (NEG) Urine RBC 0 /HPF (0-2) Urine WBC 1-4 /HPF (0-4) Urine Squamous Epithelial Cells Few /LPF Urine Bacteria Few /HPF (0-FEW) Urine Hyaline Casts Occasional /HPF Urine Mucus Mod /LPF Bedside Urine HCG, Qualitative Hcg negative (Negative) White Blood Count 8.2 x10^3/uL (4.0-11.0) Red Blood Count 4.56 x10^6/uL (3.50-5.40) Hemoglobin 13.4 g/dL (12.0-15.5) Hematocrit 38.9 % (36.0-47.0) Mean Corpuscular Volume 85 fL (79-100) Mean Corpuscular Hemoglobin 29 pg (25-35) Mean Corpuscular Hemoglobin Concent 35 g/dL (31-37) Red Cell Distribution Width 13.6 % (11.5-14.5) Platelet Count 243 x10^3/uL (140-400) Neutrophils (%) (Auto) 80 % (31-73) Lymphocytes (%) (Auto) 14 % (24-48) Monocytes (%) (Auto) 4 % (0-9) Eosinophils (%) (Auto) 1 % (0-3) Basophils (%) (Auto) 1 % (0-3) Neutrophils # (Auto) 6.5 x10^3/uL (1.8-7.7) Lymphocytes # (Auto) 1.2 x10^3/uL (1.0-4.8) Monocytes # (Auto) 0.4 x10^3/uL (0.0-1.1) Eosinophils # (Auto) 0.1 x10^3/uL (0.0-0.7) Basophils # (Auto) 0.1 x10^3/uL (0.0-0.2) Sodium Level 141 mmol/L (136-145) Potassium Level 4.3 mmol/L (3.5-5.1) Chloride Level 104 mmol/L (98-107) Carbon Dioxide Level 26 mmol/L (21-32) Anion Gap 11 (6-14) Blood Urea Nitrogen 15 mg/dL (7-20) Creatinine 0.8 mg/dL (0.6-1.0) Estimated GFR (Cockcroft-Gault) 77.6 BUN/Creatinine Ratio 19 (6-20) Glucose Level 120 mg/dL (70-99) Calcium Level 9.2 mg/dL (8.5-10.1) Total Bilirubin 0.3 mg/dL (0.2-1.0) Aspartate Amino Transf (AST/SGOT) 21 U/L (15-37) Alanine Aminotransferase (ALT/SGPT) 30 U/L (14-59) Alkaline Phosphatase 107 U/L (46-116) Total Protein 7.4 g/dL (6.4-8.2) Albumin 3.4 g/dL (3.4-5.0) Albumin/Globulin Ratio 0.9 (1.0-1.7) Medications Current Medications Cyclobenzaprine HCl (Flexeril) 10 mg 1X ONCE PO Last administered on 12/09/18at 15:32; Start 12/09/18 at 15:00; Stop 12/09/18 at 15:01; Status DC Ondansetron HCl (Zofran) 4 mg PRN Q8HRS PRN IV NAUSEA/VOMITING Last administered on 12/09/18at 17:30; Start 12/09/18 at 16:30; Stop 12/10/18 at 16:29 Hydromorphone HCl (Dilaudid) 0.5 mg 1X ONCE IV Last administered on 12/09/18at 17:31; Start 12/09/18 at 16:45; Stop 12/09/18 at 16:46; Status DC Methylprednisolone Sodium Succinate (SOLU-Medrol 125MG VIAL) 125 mg 1X ONCE IV Last administered on 12/09/18 17:30; Start 12/09/18 at 16:45; Stop 12/09/18 at 16:46; Status DC Dexamethasone Sodium Phosphate (Decadron) 4 mg Q6HRS IVP Last administered on 12/10/18at 05:44; Start 12/10/18 at 00:00 Hydromorphone HCl (Dilaudid) 0.4 mg PRN Q4HRS PRN IVP PAIN Last administered on 12/10/18at 06:40; Start 12/09/18 at 20:15 Tramadol HCl (Ultram) 50 mg PRN Q6HRS PRN PO PAIN Last administered on 12/09/18 20:55; Start 12/09/18 at 20:15 Cetirizine HCl (ZyrTEC) 10 mg QHS PO Last administered on 12/09/18at 20:55; Start 12/09/18 at 21:00 Duloxetine HCl (Cymbalta) 90 mg DAILY PO ; Start 12/10/18 at 09:00 Leflunomide (Arava) 20 mg DAILY PO ; Start 12/10/18 at 09:00 Cyanocobalamin (Vitamin B-12) 1,000 mcg DAILY PO ; Start 12/10/18 at 09:00 Diltiazem HCl (Cardizem 24hr Cd) 240 mg DAILY PO ; Start 12/10/18 at 09:00 Fluticasone Propionate (Flonase) 2 spray QHS NS Last administered on 12/09/18at 20:55; Start 12/09/18 at 21:00 Gabapentin (Neurontin) 600 mg QHS PO Last administered on 12/09/18at 20:55; Start 12/09/18 at 21:00 Pantoprazole Sodium (Protonix) 40 mg DAILYAC PO ; Start 12/10/18 at 07:30 Cyclobenzaprine HCl (Flexeril) 10 mg PRN TID PRN PO MUSCLE SPASMS Last administered on 12/10/18at 01:14; Start 12/09/18 at 20:15 Active Scripts Active Reported Acetaminophen-Cod #3 Tablet (Acetaminophen/Codeine Phosphate) 1 Each Tablet 1-2 Tab PO PRN Q4-6HRS PRN Tylenol With Codeine #3 Tablet (Acetaminophen/Codeine Phosphate) 1 Each Tablet 1 Tab PO PRN Q4HRS PRN Turmeric Complex 500 mg Cap (Turmeric/Turmeric Ext/Pepr Ext) 1 Each Capsule 1 Each PO DAILY Flonase Allergy Relief (Fluticasone Propionate) 9.9 Ml [place].susp 2 Sprays NS QHS Diltiazem 24Hr ER (LA) (Diltiazem HCl) 240 Mg Tab.er.24h 240 Mg PO DAILY Vitamin B-12 (Cyanocobalamin (Vitamin B-12)) 1,000 Mcg Tab.subl 1,000 Mcg SL DAILY Prednisone 2.5 Mg Tablet 2 Tab PO DAILY Cymbalta (Duloxetine Hcl) 30 Mg Capsule.dr 3 Cap PO DAILY Gabapentin 600 Mg Tablet 600 Mg PO QHS Leflunomide 20 Mg Tablet 20 Mg PO DAILY Zyrtec (Cetirizine Hcl) 10 Mg Tablet 1 Tab PO QHS Ranitidine Hcl 150 Mg Capsule 1 Cap PO QODAY Omeprazole 20 Mg Capsule. 1 Cap PO QODAY Vitals/I & O Vital Sign - Last 24 Hours 12/09/18 12/09/18 12/09/18 12/09/18 15:10 16:00 17:00 17:31 Temp 98.3 98.3 Pulse 79 74 72 Resp 16 16 17 18 B/P (MAP) 132/76 (94) 135/75 (95) 132/78 (96) Pulse Ox 95 100 100 99 O2 Delivery Room Air Room Air Room Air Room Air 12/09/18 12/09/18 12/09/18 12/09/18 18:00 18:14 18:18 19:00 Temp 98.1 97.6 98.1 97.6 Pulse 75 63 69 Resp 17 17 18 B/P (MAP) 134/71 (92) 117/70 (86) 108/52 (70) Pulse Ox 99 95 95 O2 Delivery Room Air Room Air Room Air Room Air 12/09/18 12/09/18 12/09/18 12/09/18 19:40 20:55 22:00 22:30 O2 Delivery Room Air Room Air Room Air Room Air 12/09/18 12/09/18 12/10/18 12/10/18 23:00 23:00 02:34 03:00 Temp 98.0 97.8 98.0 97.8 Pulse 76 75 Resp 18 18 B/P (MAP) 129/71 (90) 124/71 (88) Pulse Ox 92 92 O2 Delivery Room Air Room Air Room Air Room Air 12/10/18 12/10/18 12/10/18 12/10/18 03:15 06:40 07:00 07:10 Temp 97.9 97.9 Pulse 71 Resp 16 B/P (MAP) 107/54 (71) Pulse Ox 93 O2 Delivery Room Air Room Air Room Air Room Air HAYLEY HILTON MD Dec 10, 2018 08:51
[2018-12-10] MEDS ORDERED: IV RINGERS,LACTATED 1000ML 1,000 ML IV SCH (10:01)
--- NOTE | 2018-12-10 10:05 | RAD ---
THORACIC SPINE WO CONTRAST, LUMBAR SPINE WO CONTRAST Date: 12/10/2018 4:39 PM Indication: Right lower extremity weakness. Loss of bladder function. Comparison: None. Technique: Multi-planar multi-weighted magnetic resonance imaging of the thoracic spine and lumbar spine was performed without intravenous contrast using the standard protocol. FINDINGS: The thoracic and the lumbar spine are normally aligned. No acute fracture. Mild multilevel degenerative disc desiccation and disc height loss. No marrow replacing process to suggest malignancy. No abnormal signal is seen within the visualized spinal cord. The conus terminates at a normal level. No clumping of intrathecal nerve roots. No soft tissue abnormality in the visualized chest, abdomen, or pelvis. There are a few tiny thoracic disc bulges, with no spinal canal stenosis or neural foraminal narrowing in the thoracic spine. Lumbar spine degenerative changes as follows: T12-L1: No disc bulge. No facet arthropathy. No significant spinal stenosis or neural foraminal narrowing. L1-L2: No disc bulge. No facet arthropathy. No significant spinal stenosis or neural foraminal narrowing. L2-L3: No disc bulge. No facet arthropathy. No significant spinal stenosis or neural foraminal narrowing. L3-L4: Right hemilaminectomy. Right paracentral/proximal foraminal inferiorly migrating protrusion which narrows the right lateral recess, compresses the descending right L4 nerve root, and abuts the descending right L5 nerve root. Mild spinal canal narrowing. Moderate right neural foraminal narrowing. L4-L5: Left hemilaminectomy. Disc bulge. No significant spinal stenosis. Mild left lateral recess narrowing. No significant neural foraminal narrowing. L5-S1: Disc bulge. No significant spinal stenosis. Mild right neural foraminal narrowing. IMPRESSION: There is no high-grade spinal canal stenosis. There is no abnormal spinal cord signal. At L3-4, a disc protrusion narrows the right lateral recess with compression of the descending right L4 root nerve root and abutment of the descending right L5 nerve root. Correlate for right L4 and L5 radiculopathy. Electronically signed by: Alex Salas MD (12/10/2018 10:02 AM) [facility]
[2018-12-10] MEDS ORDERED: MORPHINE SULFATE 2 MG/ML VIAL. IV PRN (10:15)
[2018-12-10] MEDS ORDERED: PROCHLORPERAZINE 10 MG/2 ML VIAL. IV PRN (10:15)
[2018-12-10] MEDS ORDERED: LIDOCAINE 1% PF 2 ML VIAL. ID PRN (10:15)
[2018-12-10] MEDS ORDERED: ONDANSETRON PF 4 MG/2 ML VIAL. IV PRN ×2 (10:15→18:15)
[2018-12-10] MEDS ORDERED: fentaNYL PF VIAL 100 MCG/2 ML VIAL IV PRN ×2 (10:15)
--- NOTE | 2018-12-10 10:35 | NUR ---
SW consulted for stairs. Chart reviewed. Pt lives at home with spouse. Pt has PMHx Lupus, HTN, and is admitted for back pain and Paraesthesias. Pt complains of being unable to walk and will benefit from PT/OT eval. Plan 1. SW requested for PT/OT orders as recommended by rehab screen. 2. SW will continue to follow pt.
[2018-12-10] MEDS ORDERED: PROPOFOL 100 ML IV ONE (10:36)
[2018-12-10] MEDS ORDERED: ROCURONIUM 50 MG/5 ML VIAL. ONE (10:49)
[2018-12-10] MEDS ORDERED: PHENYLEPHRINE 10 MG/ML VIAL. ONE (10:49)
[2018-12-10] MEDS ORDERED: MIDAZOLAM HCL/PF 2 MG/2 ML VIAL. ONE (10:49)
[2018-12-10] MEDS ORDERED: PROPOFOL 20 ML IV ONE (10:49)
[2018-12-10] MEDS ORDERED: DEXAMETHASONE SOD PHOS 20 MG/5 ML VIAL. ONE (10:49)
[2018-12-10] MEDS ORDERED: ONDANSETRON PF 4 MG/2 ML VIAL. ONE (10:49)
[2018-12-10] MEDS ORDERED: fentaNYL PF VIAL 100 MCG/2 ML VIAL ONE ×2 (10:49→18:39)
[2018-12-10] MEDS ORDERED: REMIFENTANIL 2 MG VIAL. IV ONE (10:49)
[2018-12-10] MEDS ORDERED: LIDOCAINE 2% PF 5 ML VIAL. ONE (10:49)
[2018-12-10] MEDS ORDERED: diphenhydrAMINE 50 MG/ML VIAL ONE ×2 (11:45)
[2018-12-10] MEDS ORDERED: GELATIN SPONGE SIZE 100. ONE (11:50)
[2018-12-10] MEDS ORDERED: BUPIVACAINE MPF 0.5% 30 ML VIAL. ONE (11:50)
[2018-12-10] MEDS ORDERED: LIDOCAINE 1%/EPI 1:100,000 20 ML VIAL. ONE (11:51)
[2018-12-10] MEDS ORDERED: THROMBIN TOPICAL 20,000 UNIT SPRAY.SYRN KIT TP ONE (11:51)
[2018-12-10] MEDS ORDERED: BACITRACIN 50,000 UNIT in IV NORMAL SALINE 1000ML BAG 1,000 ML IRR ONE (12:00)
--- NOTE | 2018-12-10 12:14 | RAD ---
Examination: CT LUMBAR SPINE WO CONTRAST History: Brain lab protocol; back pain Comparison/Correlation: 12/09/2018 CT lumbar spine without contrast, 04/14/2018 lumbar spine MRI without contrast Findings: Axial images of the lumbar spine were obtained without contrast at the disc space levels from L1 through S1 were provided.. L1-2: Unremarkable L2-3: Unremarkable. L3-4: Right paracentral disc protrusion or extrusion with mass effect upon the right lateral recess, effacement of the thecal sac and spinal canal stenosis. Right-sided partial laminotomy defect noted. L4-5: Concentric mild disc bulge is present. No nerve root effacement on images provided. Left-sided laminotomy defect noted. L5-S1: Unremarkable Impression: Slight progression of right paracentral disc protrusion or extrusion at L3-4 since MRI of the lumbar spine exam dated 04/14/2018. PQRS Compliance Statement: One or more of the following individualized dose reduction techniques were utilized for this examination: 1. Automated exposure control 2. Adjustment of the mA and/or kV according to patient size 3. Use of iterative reconstruction technique Electronically signed by: Ben Yanez MD (12/10/2018 12:11 PM) [facility]
[2018-12-10] MEDS ORDERED: HYDROmorphone 2 MG/ML VIAL ONE ×2 (12:22→18:44)
[2018-12-10] MEDS ORDERED: HYDROmorphone 2 MG/ML VIAL IV ONE (12:30)
[2018-12-10] MEDS ORDERED: ceFAZolin 1GM IVPB FOR OMNI 100 ML IV ONE (13:15)
--- NOTE | 2018-12-10 13:39 | PDOC ---
PROGRESS NOTES Subjective Subjective Denies acute changes. Pain, paresthesia, and weakness RLE. Objective Objective Vital Signs Date Time Temp Pulse Resp B/P (MAP) Pulse Ox O2 Delivery O2 Flow Rate FiO2 12/10/18 12:29 15 95 Room Air 12/10/18 11:36 97.8 80 118/62 97.8 Physical Exam Physical Exam neuro unchanged weakness RLE MRI thoracic without surgical lesions MRI lumbar with recurrent disk herniation right lateral recess L3-4 with mass effect on the adjacent neural elements. Assessment Assessment Problems Medical Problems: (1) Back pain Status: Acute (2) Paresthesia Status: Acute Plan Plan of Care L3-4 decompression, discectomy, fusion as she has had multiple recurrent disk herniations at this location - discussed in detail with explanation of potential risks, benefits, and expectations - after careful consideration of these things, she elects to proceed. All questions answered. All in agreement. Comment Review of Relevant I have reviewed the following items juan daniel (where applicable) has been applied. Labs Laboratory Tests Test 12/09/18 14:50 12/09/18 15:01 12/09/18 15:20 Urine Color Yellow Urine Clarity Clear Urine pH 5.5 Urine Specific [place] 1.015 Urine Protein Negative mg/dL (NEG-TRACE) Urine Glucose (UA) Negative mg/dL (NEG) Urine Ketones (Stick) Negative mg/dL (NEG) Urine Blood Negative (NEG) Urine Nitrite Negative (NEG) Urine Bilirubin Negative (NEG) Urine Urobilinogen Dipstick 0.2 mg/dL (0.2 mg/dL) Urine Leukocyte Esterase Negative (NEG) Urine RBC 0 /HPF (0-2) Urine WBC 1-4 /HPF (0-4) Urine Squamous Epithelial Cells Few /LPF Urine Bacteria Few /HPF (0-FEW) Urine Hyaline Casts Occasional /HPF Urine Mucus Mod /LPF Bedside Urine HCG, Qualitative Hcg negative (Negative) White Blood Count 8.2 x10^3/uL (4.0-11.0) Red Blood Count 4.56 x10^6/uL (3.50-5.40) Hemoglobin 13.4 g/dL (12.0-15.5) Hematocrit 38.9 % (36.0-47.0) Mean Corpuscular Volume 85 fL (79-100) Mean Corpuscular Hemoglobin 29 pg (25-35) Mean Corpuscular Hemoglobin Concent 35 g/dL (31-37) Red Cell Distribution Width 13.6 % (11.5-14.5) Platelet Count 243 x10^3/uL (140-400) Neutrophils (%) (Auto) 80 % (31-73) Lymphocytes (%) (Auto) 14 % (24-48) Monocytes (%) (Auto) 4 % (0-9) Eosinophils (%) (Auto) 1 % (0-3) Basophils (%) (Auto) 1 % (0-3) Neutrophils # (Auto) 6.5 x10^3/uL (1.8-7.7) Lymphocytes # (Auto) 1.2 x10^3/uL (1.0-4.8) Monocytes # (Auto) 0.4 x10^3/uL (0.0-1.1) Eosinophils # (Auto) 0.1 x10^3/uL (0.0-0.7) Basophils # (Auto) 0.1 x10^3/uL (0.0-0.2) Sodium Level 141 mmol/L (136-145) Potassium Level 4.3 mmol/L (3.5-5.1) Chloride Level 104 mmol/L (98-107) Carbon Dioxide Level 26 mmol/L (21-32) Anion Gap 11 (6-14) Blood Urea Nitrogen 15 mg/dL (7-20) Creatinine 0.8 mg/dL (0.6-1.0) Estimated GFR (Cockcroft-Gault) 77.6 BUN/Creatinine Ratio 19 (6-20) Glucose Level 120 mg/dL (70-99) Calcium Level 9.2 mg/dL (8.5-10.1) Total Bilirubin 0.3 mg/dL (0.2-1.0) Aspartate Amino Transf (AST/SGOT) 21 U/L (15-37) Alanine Aminotransferase (ALT/SGPT) 30 U/L (14-59) Alkaline Phosphatase 107 U/L (46-116) Total Protein 7.4 g/dL (6.4-8.2) Albumin 3.4 g/dL (3.4-5.0) Albumin/Globulin Ratio 0.9 (1.0-1.7) Laboratory Tests Test 12/09/18 14:50 12/09/18 15:01 12/09/18 15:20 Urine Color Yellow Urine Clarity Clear Urine pH 5.5 Urine Specific [place] 1.015 Urine Protein Negative mg/dL (NEG-TRACE) Urine Glucose (UA) Negative mg/dL (NEG) Urine Ketones (Stick) Negative mg/dL (NEG) Urine Blood Negative (NEG) Urine Nitrite Negative (NEG) Urine Bilirubin Negative (NEG) Urine Urobilinogen Dipstick 0.2 mg/dL (0.2 mg/dL) Urine Leukocyte Esterase Negative (NEG) Urine RBC 0 /HPF (0-2) Urine WBC 1-4 /HPF (0-4) Urine Squamous Epithelial Cells Few /LPF Urine Bacteria Few /HPF (0-FEW) Urine Hyaline Casts Occasional /HPF Urine Mucus Mod /LPF Bedside Urine HCG, Qualitative Hcg negative (Negative) White Blood Count 8.2 x10^3/uL (4.0-11.0) Red Blood Count 4.56 x10^6/uL (3.50-5.40) Hemoglobin 13.4 g/dL (12.0-15.5) Hematocrit 38.9 % (36.0-47.0) Mean Corpuscular Volume 85 fL (79-100) Mean Corpuscular Hemoglobin 29 pg (25-35) Mean Corpuscular Hemoglobin Concent 35 g/dL (31-37) Red Cell Distribution Width 13.6 % (11.5-14.5) Platelet Count 243 x10^3/uL (140-400) Neutrophils (%) (Auto) 80 % (31-73) Lymphocytes (%) (Auto) 14 % (24-48) Monocytes (%) (Auto) 4 % (0-9) Eosinophils (%) (Auto) 1 % (0-3) Basophils (%) (Auto) 1 % (0-3) Neutrophils # (Auto) 6.5 x10^3/uL (1.8-7.7) Lymphocytes # (Auto) 1.2 x10^3/uL (1.0-4.8) Monocytes # (Auto) 0.4 x10^3/uL (0.0-1.1) Eosinophils # (Auto) 0.1 x10^3/uL (0.0-0.7) Basophils # (Auto) 0.1 x10^3/uL (0.0-0.2) Sodium Level 141 mmol/L (136-145) Potassium Level 4.3 mmol/L (3.5-5.1) Chloride Level 104 mmol/L (98-107) Carbon Dioxide Level 26 mmol/L (21-32) Anion Gap 11 (6-14) Blood Urea Nitrogen 15 mg/dL (7-20) Creatinine 0.8 mg/dL (0.6-1.0) Estimated GFR (Cockcroft-Gault) 77.6 BUN/Creatinine Ratio 19 (6-20) Glucose Level 120 mg/dL (70-99) Calcium Level 9.2 mg/dL (8.5-10.1) Total Bilirubin 0.3 mg/dL (0.2-1.0) Aspartate Amino Transf (AST/SGOT) 21 U/L (15-37) Alanine Aminotransferase (ALT/SGPT) 30 U/L (14-59) Alkaline Phosphatase 107 U/L (46-116) Total Protein 7.4 g/dL (6.4-8.2) Albumin 3.4 g/dL (3.4-5.0) Albumin/Globulin Ratio 0.9 (1.0-1.7) Medications Current Medications Cyclobenzaprine HCl (Flexeril) 10 mg 1X ONCE PO Last administered on 12/09/18at 15:32; Start 12/09/18 at 15:00; Stop 12/09/18 at 15:01; Status DC Ondansetron HCl (Zofran) 4 mg PRN Q8HRS PRN IV NAUSEA/VOMITING Last administered on 12/09/18at 17:30; Start 12/09/18 at 16:30; Stop 12/10/18 at 16:29 Hydromorphone HCl (Dilaudid) 0.5 mg 1X ONCE IV Last administered on 12/09/18at 17:31; Start 12/09/18 at 16:45; Stop 12/09/18 at 16:46; Status DC Methylprednisolone Sodium Succinate (SOLU-Medrol 125MG VIAL) 125 mg 1X ONCE IV Last administered on 12/09/18at 17:30; Start 12/09/18 at 16:45; Stop 12/09/18 at 16:46; Status DC Dexamethasone Sodium Phosphate (Decadron) 4 mg Q6HRS IVP Last administered on 12/10/18at 05:44; Start 12/10/18 at 00:00 Hydromorphone HCl (Dilaudid) 0.4 mg PRN Q4HRS PRN IVP PAIN Last administered on 12/10/18at 09:20; Start 12/09/18 at 20:15 Tramadol HCl (Ultram) 50 mg PRN Q6HRS PRN PO PAIN Last administered on 12/09/18at 20:55; Start 12/09/18 at 20:15 Cetirizine HCl (ZyrTEC) 10 mg QHS PO Last administered on 12/09/18at 20:55; St art 12/09/18 at 21:00 Duloxetine HCl (Cymbalta) 90 mg DAILY PO ; Start 12/10/18 at 09:00 Leflunomide (Arava) 20 mg DAILY PO ; Start 12/10/18 at 09:00 Cyanocobalamin (Vitamin B-12) 1,000 mcg DAILY PO ; Start 12/10/18 at 09:00 Diltiazem HCl (Cardizem 24hr Cd) 240 mg DAILY PO ; Start 12/10/18 at 09:00 Fluticasone Propionate (Flonase) 2 spray QHS NS Last administered on 12/09/18at 20:55; Start 12/09/18 at 21:00 Gabapentin (Neurontin) 600 mg QHS PO Last administered on 12/09/18at 20:55; Start 12/09/18 at 21:00 Pantoprazole Sodium (Protonix) 40 mg DAILYAC PO ; Start 12/10/18 at 07:30 Cyclobenzaprine HCl (Flexeril) 10 mg PRN TID PRN PO MUSCLE SPASMS Last administered on 12/10/18at 01:14; Start 12/09/18 at 20:15 Ondansetron HCl (Zofran) 4 mg PRN Q6HRS PRN IV NAUSEA/VOMITING; Start 12/10/18 at 10:15; Stop 12/10/18 at 20:00 Fentanyl Citrate (Fentanyl 2ml Vial) 25 mcg PRN Q5MIN PRN IV MILD PAIN 1-3; Start 12/10/18 at 10:15; Stop 12/10/18 at 20:00 Fentanyl Citrate (Fentanyl 2ml Vial) 50 mcg PRN Q5MIN PRN IV MODERATE TO SEVERE PAIN; Start 12/10/18 at 10:15; Stop 12/10/18 at 20:00 Morphine Sulfate (Morphine Sulfate) 1 mg PRN Q10MIN PRN IV SEVERE PAIN 7-10; Start 12/10/18 at 10:15; Stop 12/11/18 at 10:14; Status UNV Ringer's Solution 1,000 ml @ 30 mls/hr Q24H IV Last administered on 12/10/18at 11:43; Start 12/10/18 at 10:01; Stop 12/10/18 at 22:00 Lidocaine HCl (Xylocaine-Mpf 1% 2ml Vial) 2 ml PRN 1X PRN ID PRIOR TO IV START; Start 12/10/18 at 10:15; Stop 12/10/18 at 20:00 Hydromorphone HCl (Dilaudid) 0.5 mg PRN Q10MIN PRN IV SEV PAIN, Second choice; Start 12/10/18 at 10:15; Stop 12/10/18 at 20:00 Prochlorperazine Edisylate (Compazine) 5 mg PACU PRN PRN IV NAUSEA, MRX1; Start 12/10/18 at 10:15; Stop 12/11/18 at 10:14; Status UNV Propofol 100 ml @ As Directed STK-MED ONCE IV ; Start 12/10/18 at 10:36; Stop 12/10/18 at 10:36; Status DC Fentanyl Citrate (Fentanyl 2ml Vial) 100 mcg STK-MED ONCE .ROUTE ; Start 12/10/18 at 10:49; Stop 12/10/18 at 10:49; Status DC Rocuronium [place] (Zemuron) 50 mg STK-MED ONCE .ROUTE ; Start 12/10/18 at 10:49; Stop 12/10/18 at 10:49; Status DC Midazolam HCl (Versed) 2 mg STK-MED ONCE .ROUTE ; Start 12/10/18 at 10:49; Stop 12/10/18 at 10:49; Status DC Remifentanil HCl (Ultiva) 2 mg STK-MED ONCE IV ; Start 12/10/18 at 10:49; Stop 12/10/18 at 10:49; Status DC Phenylephrine HCl (Redd-Synephrine Inj) 10 mg STK-MED ONCE .ROUTE ; Start 12/10/18 at 10:49; Stop 12/10/18 at 10:49; Status DC Propofol 20 ml @ As Directed STK-MED ONCE IV ; Start 12/10/18 at 10:49; Stop 12/10/18 at 10:49; Status DC Lidocaine HCl (Lidocaine Pf 2% Vial) 5 ml STK-MED ONCE .ROUTE ; Start 12/10/18 at 10:49; Stop 12/10/18 at 10:49; Status DC Dexamethasone Sodium Phosphate (Decadron) 20 mg STK-MED ONCE .ROUTE ; Start 12/10/18 at 10:49; Stop 12/10/18 at 10:49; Status DC Ondansetron HCl (Zofran) 4 mg STK-MED ONCE .ROUTE ; Start 12/10/18 at 10:49; Stop 12/10/18 at 10:49; Status DC Diphenhydramine HCl (Benadryl) 50 mg STK-MED ONCE .ROUTE ; Start 12/10/18 at 11:45; Stop 12/10/18 at 11:45; Status DC Diphenhydramine HCl (Benadryl) 50 mg STK-MED ONCE .ROUTE ; Start 12/10/18 at 11:45; Stop 12/10/18 at 11:45; Status DC Bacitracin 75387 unit/Sodium Chloride 1,000 ml @ 1,000 mls/hr 1X ONCE IRR ; Start 12/10/18 at 12:00; Stop 12/10/18 at 12:59; Status DC Gelatin (Gelfoam Size 100) 1 each STK-MED ONCE .ROUTE ; Start 12/10/18 at 11:50; Stop 12/10/18 at 11:51; Status DC Bupivacaine HCl (Sensorcaine Mpf 0.5%) 30 ml STK-MED ONCE .ROUTE ; Start 12/10/18 at 11:50; Stop 12/10/18 at 11:51; Status DC Lidocaine/ Epinephrine (LIDOCAINE 1%-EPI 1:100,000 Multi-Dose) 20 ml STK-MED ONCE .ROUTE ; Start 12/10/18 at 11:51; Stop 12/10/18 at 11:51; Status DC Thrombin 20,000 unit STK-MED ONCE TP ; Start 12/10/18 at 11:51; Stop 12/10/18 at 11:51; Status DC Hydromorphone HCl (Dilaudid) 2 mg STK-MED ONCE .ROUTE ; Start 12/10/18 at 12:22; Stop 12/10/18 at 12:22; Status DC Hydromorphone HCl (Dilaudid) 2 mg 1X ONCE IV Last administered on 12/10/18at 12:29; Start 12/10/18 at 12:30; Stop 12/10/18 at 12:31; Status DC Cefazolin Sodium 100 ml @ As Directed STK-MED ONCE IV ; Start 12/10/18 at 13:15; Stop 12/10/18 at 13:15; Status DC Active Scripts Active Reported Acetaminophen-Cod #3 Tablet (Acetaminophen/Codeine Phosphate) 1 Each Tablet 1-2 Tab PO PRN Q4-6HRS PRN Tylenol With Codeine #3 Tablet (Acetaminophen/Codeine Phosphate) 1 Each Tablet 1 Tab PO PRN Q4HRS PRN Turmeric Complex 500 mg Cap (Turmeric/Turmeric Ext/Pepr Ext) 1 Each Capsule 1 Each PO DAILY Flonase Allergy Relief (Fluticasone Propionate) 9.9 Ml [place].susp 2 Sprays NS QHS Diltiazem 24Hr ER (LA) (Diltiazem HCl) 240 Mg Tab.er.24h 240 Mg PO DAILY Vitamin B-12 (Cyanocobalamin (Vitamin B-12)) 1,000 Mcg Tab.subl 1,000 Mcg SL DAILY Prednisone 2.5 Mg Tablet 2 Tab PO DAILY Cymbalta (Duloxetine Hcl) 30 Mg Capsule.dr 3 Cap PO DAILY Gabapentin 600 Mg Tablet 600 Mg PO QHS Leflunomide 20 Mg Tablet 20 Mg PO DAILY Zyrtec (Cetirizine Hcl) 10 Mg Tablet 1 Tab PO QHS Ranitidine Hcl 150 Mg Capsule 1 Cap PO QODAY Omeprazole 20 Mg Capsule. 1 Cap PO QODAY Vitals/I & O Vital Sign - Last 24 Hours 12/09/18 12/09/18 12/09/18 12/09/18 15:10 16:00 17:00 17:31 Temp 98.3 98.3 Pulse 79 74 72 Resp 16 16 17 18 B/P (MAP) 132/76 (94) 135/75 (95) 132/78 (96) Pulse Ox 95 100 100 99 O2 Delivery Room Air Room Air Room Air Room Air 12/09/18 12/09/18 12/09/18 12/09/18 18:00 18:14 18:18 19:00 Temp 98.1 97.6 98.1 97.6 Pulse 75 63 69 Resp 17 17 18 B/P (MAP) 134/71 (92) 117/70 (86) 108/52 (70) Pulse Ox 99 95 95 O2 Delivery Room Air Room Air Room Air Room Air 12/09/18 12/09/18 12/09/18 12/09/18 19:40 20:55 22:00 22:30 O2 Delivery Room Air Room Air Room Air Room Air 12/09/18 12/09/18 12/10/18 12/10/18 23:00 23:00 02:34 03:00 Temp 98.0 97.8 98.0 97.8 Pulse 76 75 Resp 18 18 B/P (MAP) 129/71 (90) 124/71 (88) Pulse Ox 92 92 O2 Delivery Room Air Room Air Room Air Room Air 12/10/18 12/10/18 12/10/18 12/10/18 03:15 06:40 07:00 07:10 Temp 97.9 97.9 Pulse 71 Resp 16 B/P (MAP) 107/54 (71) Pulse Ox 93 O2 Delivery Room Air Room Air Room Air Room Air 12/10/18 12/10/18 12/10/18 12/10/18 08:00 09:20 09:50 11:03 Temp 97.8 97.8 Pulse 80 Resp 18 B/P (MAP) 118/62 (80) Pulse Ox 93 95 O2 Delivery Room Air Room Air Room Air Room Air 12/10/18 12/10/18 11:36 12:29 Temp 97.8 97.8 Pulse 80 Resp 15 15 B/P (MAP) 118/62 Pulse Ox 95 95 O2 Delivery Room Air Room Air CANDIS GÓMEZ MD Dec 10, 2018 13:39
[2018-12-10] MEDS ORDERED: GLYCOPYRROLATE 1 MG/5 ML VIAL. ONE (14:11)
[2018-12-10] MEDS ORDERED: REMIFENTANIL 1 MG VIAL. IV ONE (16:29)
[2018-12-10] MEDS ORDERED: PROPOFOL 50 ML IV ONE (17:02)
[2018-12-10] MEDS ORDERED: ceFAZolin SODIUM 1 GM VIAL ONE ×2 (17:48)
[2018-12-10] MEDS ORDERED: NEOSTIGMINE METHYLSULFATE 5 MG/5 ML SYRINGE. ONE (17:54)
--- NOTE | 2018-12-10 18:08 | PDOC ---
BRIEF OPERATIVE NOTE Date: Dec 10, 2018 Pre-Op Diagnosis recurrent disk herniation L3-4, radiculopathy, weakness Post-Op Diagnosis same Procedure Performed right laminectomy L3-4 with discectomy, posterolateral fusion L3-4 with allograft and autograft substrate, CT-guided stereotaxis, neuromonitoring Surgeon Dwaine George Anesthesia Type: General Blood Loss 50mL Specimens Obtained disk and decompression Findings significant scar tissue, herniated disk with mass effect on neural elements L3- 4, neuromonitoring motor potentials improved compared to baseline at completion of procedure Complications none apparent CANDIS GÓMEZ MD Dec 10, 2018 18:07
[2018-12-10] MEDS ORDERED: IV NORMAL SALINE 1000ML BAG 1,000 ML IV SCH (18:11)
[2018-12-10] MEDS ORDERED: NALOXONE 0.4 MG/ML VIAL. IV PRN ×2 (18:15)
[2018-12-10] MEDS ORDERED: CALCIUM CARBONATE 500 MG TAB.CHEW PO PRN (18:15)
[2018-12-10] MEDS ORDERED: MAGNESIUM HYDROXIDE 2,400 MG/30 ML ORAL.SUSP. PO PRN (18:15)
[2018-12-10] MEDS ORDERED: ZOLPIDEM 5 MG TABLET. PO PRN (18:15)
[2018-12-10] MEDS ORDERED: MAG HYDROX/ALUMINUM HYD/SIMETH 30 ML ORAL.SUSP PO PRN (18:15)
[2018-12-10] MEDS ORDERED: 0.9 % SODIUM CHLORIDE 10 ML DISP.SYRIN. IV PRN (18:15)
[2018-12-10] MEDS ORDERED: ACETAMINOPHEN 325 MG TABLET. PO PRN (18:15)
[2018-12-10] MEDS: diphenhydrAMINE 50 MG/ML VIAL IV PRN (18:40)
[2018-12-10] MEDS: HYDROmorphone 2 MG/ML VIAL IV PRN ×2 (18:45→19:08)
--- NOTE | 2018-12-10 20:00 | NUR ---
Admit from PACU. C/o lower middle back pain that radiates to right hip and groin. C/o chronic bilat feet tingling, able to move toes. Dressing D/I.
[2018-12-10] MEDS: SENNOSIDES/DOCUSATE 8.6/50MG TABLET. PO SCH (21:27)
[2018-12-10] MEDS: DOCUSATE SODIUM 100 MG CAPSULE. PO SCH (21:27)
[2018-12-10] MEDS: GABAPENTIN 300 MG CAPSULE. PO SCH (21:27)
[2018-12-10] MEDS: METHOCARBAMOL 750 MG TABLET PO SCH (21:27)
[2018-12-10] MEDS: CETIRIZINE HCL 10 MG TABLET. PO SCH (21:28)
[2018-12-10] MEDS: FLUTICASONE 50MCG/NASAL SPRAY 16GM BOTTLE. NS SCH (21:35)
[2018-12-10] MEDS: fentaNYL PF VIAL 100 MCG/2 ML VIAL IVP PRN (23:46)
[2018-12-11] MEDS: diphenhydrAMINE 50 MG/ML VIAL IV PRN ×2 (00:36→14:01)
[2018-12-11] MEDS: HYDROmorphone 2 MG/ML VIAL IVP PRN (01:53)
[2018-12-11] MEDS: DEXAMETHASONE SOD PHOS 4 MG/ML VIAL IVP SCH ×4 (05:26→17:28)
[2018-12-11] MEDS: fentaNYL PF VIAL 100 MCG/2 ML VIAL IVP PRN ×3 (05:26→20:26)
[2018-12-11 06:27] VITALS: BP 102/54
[2018-12-11] MEDS: MULTIVITAMIN with MINERAL TABLET. PO SCH (08:31)
[2018-12-11] MEDS: METHOCARBAMOL 750 MG TABLET PO SCH ×3 (08:31→20:24)
[2018-12-11] MEDS: DULoxetine HCL 30 MG CAPSULE.DR PO SCH ×2 (08:31→20:30)
[2018-12-11] MEDS: LEFLUNOMIDE 10 MG TABLET. PO SCH (08:31)
[2018-12-11] MEDS: SENNOSIDES/DOCUSATE 8.6/50MG TABLET. PO SCH ×2 (08:32→20:26)
[2018-12-11] MEDS: FERROUS SULFATE 325 MG TABLET. PO SCH ×2 (08:32→17:27)
[2018-12-11] MEDS: CALCIUM CARB/VIT D3 500/200 TABLET. PO SCH ×2 (08:32→17:27)
[2018-12-11] MEDS: DOCUSATE SODIUM 100 MG CAPSULE. PO SCH ×2 (08:32→20:24)
--- NOTE | 2018-12-11 08:36 | PDOC ---
PROGRESS NOTES Chief Complaint Chief Complaint A/P: Acute lumbar pain - multiple drug allergies. Will stress dose steroids as she takes chronic prednisone for her lupus. Flexeril. Dilaudid and tramadol prn Right leg weakness - confirmed radiculopathy, acute impingement on MRI ordered. Decadron. Consulted Dr. Isidro - s/p laminectomy Urinary incontinence - ED notes rectal tone positive. MRI lumbar ordered Lupus - no hx of nephritis, no recent flare. will stress dose steroids now. Cont arava HTN - cont meds FEN - General diet PPX - SCDs FULL CODE Dispo - inpatient for inability to walk,pain control History of Present Illness History of Present Illness Ms Sawyer is a 43yo F w/ PMHx Lupus, HTN, lumbar disc disease s/p right L3-4 decompression/discectomy 03/2018 with excellent outcome who presents to the ED c/o progressive lower back pain with radiation down her right leg with associated right leg weakness over the past 4 days. In ED she has lost bladder control. She denies a clear inciting event or injury. CT lumbar spine shows no acute bony abnormality, confirms prior surgery. She is being admitted for further diagnosis and treatment, unable to walk. 12/10: Still in severe pain. MRI completed - L3-4, a disc protrusion narrows the right lateral recess with compression of the descending right L4 root nerve root and abutment of the descending right L5 nerve root. Correlate for right L4 and L5 radiculopathy. To OR for right laminectomy L3-4 with discectomy, posterolateral fusion L3-4 with allograft and autograft substrate Transferred to ortho unit post-op. improved sensation in right leg with decreased pain. Improved strength right leg and ankle, but still not back to normal. Pain is more manageable today. Passing flatus. No CP or SOB. Vitals Vitals Vital Signs Date Time Temp Pulse Resp B/P (MAP) Pulse Ox O2 Delivery O2 Flow Rate FiO2 12/11/18 06:27 98.0 65 20 102/54 (70) 97 Room Air 98.0 12/10/18 19:30 1 Physical Exam General: Alert, Oriented X3, Cooperative, No acute distress Lungs: Clear, Wheezing Abdomen: Normal bowel sounds, Soft, No tenderness, No hepatosplenomegaly, No masses Extremities: No clubbing, No cyanosis, No edema, Normal pulses, Other (Lumbar tenderness and paraspinal tenderness) Skin: No rashes, No breakdown, No significant lesion Assessment and Plan Assessmemt and Plan Problems Medical Problems: (1) Back pain Status: Acute (2) Paresthesia Status: Acute Comment Review of Relevant I have reviewed the following items juan daniel (where applicable) has been applied. Labs Laboratory Tests Test 12/09/18 14:50 12/09/18 15:01 12/09/18 15:20 Urine Color Yellow Urine Clarity Clear Urine pH 5.5 Urine Specific [place] 1.015 Urine Protein Negative mg/dL (NEG-TRACE) Urine Glucose (UA) Negative mg/dL (NEG) Urine Ketones (Stick) Negative mg/dL (NEG) Urine Blood Negative (NEG) Urine Nitrite Negative (NEG) Urine Bilirubin Negative (NEG) Urine Urobilinogen Dipstick 0.2 mg/dL (0.2 mg/dL) Urine Leukocyte Esterase Negative (NEG) Urine RBC 0 /HPF (0-2) Urine WBC 1-4 /HPF (0-4) Urine Squamous Epithelial Cells Few /LPF Urine Bacteria Few /HPF (0-FEW) Urine Hyaline Casts Occasional /HPF Urine Mucus Mod /LPF Bedside Urine HCG, Qualitative Hcg negative (Negative) White Blood Count 8.2 x10^3/uL (4.0-11.0) Red Blood Count 4.56 x10^6/uL (3.50-5.40) Hemoglobin 13.4 g/dL (12.0-15.5) Hematocrit 38.9 % (36.0-47.0) Mean Corpuscular Volume 85 fL (79-100) Mean Corpuscular Hemoglobin 29 pg (25-35) Mean Corpuscular Hemoglobin Concent 35 g/dL (31-37) Red Cell Distribution Width 13.6 % (11.5-14.5) Platelet Count 243 x10^3/uL (140-400) Neutrophils (%) (Auto) 80 % (31-73) Lymphocytes (%) (Auto) 14 % (24-48) Monocytes (%) (Auto) 4 % (0-9) Eosinophils (%) (Auto) 1 % (0-3) Basophils (%) (Auto) 1 % (0-3) Neutrophils # (Auto) 6.5 x10^3/uL (1.8-7.7) Lymphocytes # (Auto) 1.2 x10^3/uL (1.0-4.8) Monocytes # (Auto) 0.4 x10^3/uL (0.0-1.1) Eosinophils # (Auto) 0.1 x10^3/uL (0.0-0.7) Basophils # (Auto) 0.1 x10^3/uL (0.0-0.2) Sodium Level 141 mmol/L (136-145) Potassium Level 4.3 mmol/L (3.5-5.1) Chloride Level 104 mmol/L (98-107) Carbon Dioxide Level 26 mmol/L (21-32) Anion Gap 11 (6-14) Blood Urea Nitrogen 15 mg/dL (7-20) Creatinine 0.8 mg/dL (0.6-1.0) Estimated GFR (Cockcroft-Gault) 77.6 BUN/Creatinine Ratio 19 (6-20) Glucose Level 120 mg/dL (70-99) Calcium Level 9.2 mg/dL (8.5-10.1) Total Bilirubin 0.3 mg/dL (0.2-1.0) Aspartate Amino Transf (AST/SGOT) 21 U/L (15-37) Alanine Aminotransferase (ALT/SGPT) 30 U/L (14-59) Alkaline Phosphatase 107 U/L (46-116) Total Protein 7.4 g/dL (6.4-8.2) Albumin 3.4 g/dL (3.4-5.0) Albumin/Globulin Ratio 0.9 (1.0-1.7) Medications Current Medications Cyclobenzaprine HCl (Flexeril) 10 mg 1X ONCE PO Last administered on 12/09/18at 15:32; Start 12/09/18 at 15:00; Stop 12/09/18 at 15:01; Status DC Ondansetron HCl (Zofran) 4 mg PRN Q8HRS PRN IV NAUSEA/VOMITING Last administered on 12/09/18at 17:30; Start 12/09/18 at 16:30; Stop 12/10/18 at 16:29; Status DC Hydromorphone HCl (Dilaudid) 0.5 mg 1X ONCE IV Last administered on 12/09/18at 17:31; Start 12/09/18 at 16:45; Stop 12/09/18 at 16:46; Status DC Methylprednisolone Sodium Succinate (SOLU-Medrol 125MG VIAL) 125 mg 1X ONCE IV Last administered on 12/09/18at 17:30; Start 12/09/18 at 16:45; Stop 12/09/18 at 16:46; Status DC Dexamethasone Sodium Phosphate (Decadron) 4 mg Q6HRS IVP Last administered on 12/11/18at 06:00; Start 12/10/18 at 00:00 Hydromorphone HCl (Dilaudid) 0.4 mg PRN Q4HRS PRN IVP PAIN SEVERE Last administered on 12/11/18at 01:53; Start 12/09/18 at 20:15 Tramadol HCl (Ultram) 50 mg PRN Q6HRS PRN PO PAIN Last administered on 12/09/18at 20:55; Start 12/09/18 at 20:15 Cetirizine HCl (ZyrTEC) 10 mg QHS PO Last administered on 12/10/18at 21:28; Start 12/09/18 at 21:00 Duloxetine HCl (Cymbalta) 90 mg DAILY PO ; Start 12/10/18 at 09:00 Leflunomide (Arava) 20 mg DAILY PO ; Start 12/10/18 at 09:00 Cyanocobalamin (Vitamin B-12) 1,000 mcg DAILY PO ; Start 12/10/18 at 09:00 Diltiazem HCl (Cardizem 24hr Cd) 240 mg DAILY PO ; Start 12/10/18 at 09:00 Fluticasone Propionate (Flonase) 2 spray QHS NS Last administered on 12/10/18at 21:35; Start 12/09/18 at 21:00 Gabapentin (Neurontin) 600 mg QHS PO Last administered on 12/10/18at 21:27; Start 12/09/18 at 21:00 Pantoprazole Sodium (Protonix) 40 mg DAILYAC PO ; Start 12/10/18 at 07:30; Stop 12/11/18 at 06:35; Status DC Cyclobenzaprine HCl (Flexeril) 10 mg PRN TID PRN PO MUSCLE SPASMS Last administered on 12/10/18at 01:14; Start 12/09/18 at 20:15 Ondansetron HCl (Zofran) 4 mg PRN Q6HRS PRN IV NAUSEA/VOMITING; Start 12/10/18 at 10:15; Stop 12/10/18 at 20:07; Status DC Fentanyl Citrate (Fentanyl 2ml Vial) 25 mcg PRN Q5MIN PRN IV MILD PAIN 1-3; Start 12/10/18 at 10:15; Stop 12/10/18 at 20:07; Status DC Fentanyl Citrate (Fentanyl 2ml Vial) 50 mcg PRN Q5MIN PRN IV MODERATE TO SEVERE PAIN; Start 12/10/18 at 10:15; Stop 12/10/18 at 20:07; Status DC Morphine Sulfate (Morphine Sulfate) 1 mg PRN Q10MIN PRN IV SEVERE PAIN 7-10; Start 12/10/18 at 10:15; Stop 12/11/18 at 10:14; Status UNV Ringer's Solution 1,000 ml @ 30 mls/hr Q24H IV Last administered on 12/10/18at 11:43; Start 12/10/18 at 10:01; Stop 12/10/18 at 22:00; Status DC Lidocaine HCl (Xylocaine-Mpf 1% 2ml Vial) 2 ml PRN 1X PRN ID PRIOR TO IV START; Start 12/10/18 at 10:15; Stop 12/10/18 at 20:07; Status DC Hydromorphone HCl (Dilaudid) 0.5 mg PRN Q10MIN PRN IV SEV PAIN, Second choice Last administered on 12/10/18at 19:08; Start 12/10/18 at 10:15; Stop 12/10/18 at 20:07; Status DC Prochlorperazine Edisylate (Compazine) 5 mg PACU PRN PRN IV NAUSEA, MRX1; Start 12/10/18 at 10:15; Stop 12/11/18 at 10:14; Status UNV Propofol 100 ml @ As Directed STK-MED ONCE IV ; Start 12/10/18 at 10:36; Stop 12/10/18 at 10:36; Status DC Fentanyl Citrate (Fentanyl 2ml Vial) 100 mcg STK-MED ONCE .ROUTE ; Start 12/10/18 at 10:49; Stop 12/10/18 at 10:49; Status DC Rocuronium [place] (Zemuron) 50 mg STK-MED ONCE .ROUTE ; Start 12/10/18 at 10:49; Stop 12/10/18 at 10:49; Status DC Midazolam HCl (Versed) 2 mg STK-MED ONCE .ROUTE ; Start 12/10/18 at 10:49; Stop 12/10/18 at 10:49; Status DC Remifentanil HCl (Ultiva) 2 mg STK-MED ONCE IV ; Start 12/10/18 at 10:49; Stop 12/10/18 at 10:49; Status DC Phenylephrine HCl (Redd-Synephrine Inj) 10 mg STK-MED ONCE .ROUTE ; Start 12/10/18 at 10:49; Stop 12/10/18 at 10:49; Status DC Propofol 20 ml @ As Directed STK-MED ONCE IV ; Start 12/10/18 at 10:49; Stop 12/10/18 at 10:49; Status DC Lidocaine HCl (Lidocaine Pf 2% Vial) 5 ml STK-MED ONCE .ROUTE ; Start 12/10/18 at 10:49; Stop 12/10/18 at 10:49; Status DC Dexamethasone Sodium Phosphate (Decadron) 20 mg STK-MED ONCE .ROUTE ; Start 12/10/18 at 10:49; Stop 12/10/18 at 10:49; Status DC Ondansetron HCl (Zofran) 4 mg STK-MED ONCE .ROUTE ; Start 12/10/18 at 10:49; Stop 12/10/18 at 10:49; Status DC Diphenhydramine HCl (Benadryl) 50 mg STK-MED ONCE .ROUTE ; Start 12/10/18 at 11:45; Stop 12/10/18 at 11:45; Status DC Diphenhydramine HCl (Benadryl) 50 mg STK-MED ONCE .ROUTE ; Start 12/10/18 at 11:45; Stop 12/10/18 at 11:45; Status DC Bacitracin 60956 unit/Sodium Chloride 1,000 ml @ 1,000 mls/hr 1X ONCE IRR Last administered on 12/10/18at 14:23; Start 12/10/18 at 12:00; Stop 12/10/18 at 12:59; Status DC Gelatin (Gelfoam Size 100) 1 each STK-MED ONCE .ROUTE Last administered on 12/10/18at 15:38; Start 12/10/18 at 11:50; Stop 12/10/18 at 11:51; Status DC Bupivacaine HCl (Sensorcaine Mpf 0.5%) 30 ml STK-MED ONCE .ROUTE Last administered on 12/10/18at 14:23; Start 12/10/18 at 11:50; Stop 12/10/18 at 11:51; Status DC Lidocaine/ Epinephrine (LIDOCAINE 1%-EPI 1:100,000 Multi-Dose) 20 ml STK-MED ONCE .ROUTE Last administered on 12/10/18at 14:23; Start 12/10/18 at 11:51; Stop 12/10/18 at 11:51; Status DC Thrombin 20,000 unit STK-MED ONCE TP Last administered on 12/10/18at 15:38; Start 12/10/18 at 11:51; Stop 12/10/18 at 11:51; Status DC Hydromorphone HCl (Dilaudid) 2 mg STK-MED ONCE .ROUTE ; Start 12/10/18 at 12:22; Stop 12/10/18 at 12:22; Status DC Hydromorphone HCl (Dilaudid) 2 mg 1X ONCE IV Last administered on 12/10/18at 12:29; Start 12/10/18 at 12:30; Stop 12/10/18 at 12:31; Status DC Cefazolin Sodium 100 ml @ As Directed STK-MED ONCE IV ; Start 12/10/18 at 13:15; Stop 12/10/18 at 13:15; Status DC Glycopyrrolate (Robinul) 1 mg STK-MED ONCE .ROUTE ; Start 12/10/18 at 14:11; Stop 12/10/18 at 14:11; Status DC Remifentanil HCl (Ultiva) 1 mg STK-MED ONCE IV ; Start 12/10/18 at 16:29; Stop 12/10/18 at 16:30; Status DC Propofol 50 ml @ As Directed STK-MED ONCE IV ; Start 12/10/18 at 17:02; Stop 12/10/18 at 17:02; Status DC Cefazolin Sodium (Ancef) 1 gm STK-MED ONCE .ROUTE ; Start 12/10/18 at 17:48; Stop 12/10/18 at 17:49; Status DC Cefazolin Sodium (Ancef) 1 gm STK-MED ONCE .ROUTE ; Start 12/10/18 at 17:48; Stop 12/10/18 at 17:49; Status DC Neostigmine Methylsulfate (Neostigmine Methylsulfate) 5 mg STK-MED ONCE .ROUTE ; Start 12/10/18 at 17:54; Stop 12/10/18 at 17:54; Status DC Multivitamins (Thera M Plus) 1 tab DAILY PO ; Start 12/11/18 at 09:00 Calcium/Vitamin D (Oscal D 500mg/ 200uts) 1 tab BIDWMEALS PO ; Start 12/11/18 at 08:00 Ferrous Sulfate (Feosol) 325 mg BIDWMEALS PO ; Start 12/11/18 at 08:00 Acetaminophen (Tylenol) 650 mg PRN Q6HRS PRN PO MILD PAIN / TEMP; Start 12/10/18 at 18:15 Al Hydroxide/Mg Hydroxide (Mylanta Plus Xs) 30 ml PRN Q3HRS PRN PO HEARTBURN / GAS; Start 12/10/18 at 18:15 Calcium Carbonate/ Glycine (Tums) 500 mg PRN Q3HRS PRN PO INDIGESTION; Start 12/10/18 at 18:15 Diphenhydramine HCl (Benadryl) 25 mg PRN Q6HRS PRN PO ITCHING; Start 12/10/18 at 18:15 Diphenhydramine HCl (Benadryl) 25 mg PRN Q6HRS PRN IV ITCHING Last administered on 12/11/18at 00:36; Start 12/10/18 at 18:15 Zolpidem Tartrate (Ambien) 5 mg PRN QHS PRN PO INSOMNIA, MAY REPEAT IN 1HR; Start 12/10/18 at 18:15 Naloxone HCl (Narcan) 0.1 mg PRN Q2MIN PRN IV ADMIN; Start 12/10/18 at 18:15 Sodium Chloride (Normal Saline Flush) 3 ml QSHIFT PRN IV AFTER MEDS AND BLOOD DRAWS; Start 12/10/18 at 18:15 Naloxone HCl (Narcan) 0.4 mg PRN Q2MIN PRN IV SEE INSTRUCTIONS; Start 12/10/18 at 18:15 Sodium Chloride 1,000 ml @ 25 mls/hr Q24H IV ; Start 12/10/18 at 18:11 Methocarbamol (Robaxin) 750 mg TID PO Last administered on 12/10/18at 21:27; Start 12/10/18 at 21:00 Senna/Docusate Sodium (Senna Plus) 1 tab BID PO Last administered on 12/10/18at 21:27; Start 12/10/18 at 21:00 Docusate Sodium (Colace) 100 mg BID PO Last administered on 12/10/18at 21:27; Start 12/10/18 at 21:00 Magnesium Hydroxide (Milk Of Magnesia) 2,400 mg PRN Q12HR PRN PO CONSTIPATION; Start 12/10/18 at 18:15 Ondansetron HCl (Zofran) 4 mg PRN Q6HRS PRN IV NAUESA, 1ST CHOICE; Start 12/10/18 at 18:15 Fentanyl Citrate (Fentanyl 2ml Vial) 100 mcg STK-MED ONCE .ROUTE ; Start at 18:39; Stop 12/10/18 at 18:39; Status DC Hydromorphone HCl (Dilaudid) 2 mg STK-MED ONCE .ROUTE ; Start 12/10/18 at 18:4 4; Stop 12/10/18 at 18:44; Status DC Fentanyl Citrate (Fentanyl 2ml Vial) 50 mcg PRN Q1HR PRN IVP PAIN MILD TO MOD Last administered on 12/11/18at 05:26; Start 12/10/18 at 20:45 Pantoprazole Sodium (Protonix) 40 mg HS PO ; Start 12/11/18 at 21:00 Active Scripts Active Reported Acetaminophen-Cod #3 Tablet (Acetaminophen/Codeine Phosphate) 1 Each Tablet 1-2 Tab PO PRN Q4-6HRS PRN Tylenol With Codeine #3 Tablet (Acetaminophen/Codeine Phosphate) 1 Each Tablet 1 Tab PO PRN Q4HRS PRN Turmeric Complex 500 mg Cap (Turmeric/Turmeric Ext/Pepr Ext) 1 Each Capsule 1 Each PO DAILY Flonase Allergy Relief (Fluticasone Propionate) 9.9 Ml [place].susp 2 Sprays NS QHS Diltiazem 24Hr ER (LA) (Diltiazem HCl) 240 Mg Tab.er.24h 240 Mg PO DAILY Vitamin B-12 (Cyanocobalamin (Vitamin B-12)) 1,000 Mcg Tab.subl 1,000 Mcg SL DAILY Prednisone 2.5 Mg Tablet 2 Tab PO DAILY Cymbalta (Duloxetine Hcl) 30 Mg Capsule. 3 Cap PO DAILY Gabapentin 600 Mg Tablet 600 Mg PO QHS Leflunomide 20 Mg Tablet 20 Mg PO DAILY Zyrtec (Cetirizine Hcl) 10 Mg Tablet 1 Tab PO QHS Ranitidine Hcl 150 Mg Capsule 1 Cap PO QODAY Omeprazole 20 Mg Capsule. 1 Cap PO QODAY Vitals/I & O Vital Sign - Last 24 Hours 12/10/18 12/10/18 12/10/18 12/10/18 09:20 09:50 11:03 11:36 Temp 97.8 97.8 97.8 97.8 Pulse 80 80 Resp 18 15 B/P (MAP) 118/62 (80) 118/62 Pulse Ox 93 95 95 O2 Delivery Room Air Room Air Room Air Room Air 12/10/18 12/10/18 12/10/18 12/10/18 12:29 18:19 18:19 18:30 Temp 98.5 98.5 98.5 98.5 Pulse 80 84 Resp 15 18 20 B/P (MAP) 135/67 134/68 Pulse Ox 95 99 100 O2 Delivery Room Air Nasal Cannula Nasal Cannula Nasal Cannula O2 Flow Rate 3 3 3 12/10/18 12/10/18 12/10/18 12/10/18 18:45 19:00 19:08 19:15 Temp 98.5 98.5 98.5 98.5 Pulse 70 64 Resp 20 20 20 20 B/P (MAP) 119/65 115/61 Pulse Ox 3 100 99 100 O2 Delivery Nasal Cannula Nasal Cannula Nasal Cannula Nasal Cannula O2 Flow Rate 3 3.0 1 12/10/18 12/10/18 12/10/18 12/10/18 19:30 19:30 20:00 20:15 Temp 98.6 98.3 98.6 98.3 Pulse 62 68 68 Resp 18 24 B/P (MAP) 115/61 109/61 (77) 112/55 (74) Pulse Ox 100 95 O2 Delivery Nasal Cannula Nasal Cannula Room Air O2 Flow Rate 1 1 12/10/18 12/10/18 12/10/18 12/10/18 20:23 20:30 20:45 20:55 Pulse 62 62 Resp 18 24 B/P (MAP) 108/56 (73) 111/52 (71) Pulse Ox 99 O2 Delivery Room Air Room Air 12/10/18 12/10/18 12/11/18 12/11/18 21:15 23:46 01:53 05:26 Pulse 62 Resp 16 24 16 B/P (MAP) 108/56 (73) O2 Delivery Room Air Room Air 12/11/18 12/11/18 06:00 06:27 Temp 98.0 98.0 Pulse 65 Resp 20 20 B/P (MAP) 102/54 (70) Pulse Ox 97 O2 Delivery Room Air Room Air Intake and Output 12/10/18 12/10/18 12/11/18 14:59 22:59 06:59 Intake Total 1400 ml 2500 ml Output Total 250 ml 2550 ml Balance 1150 ml -50 ml HAYLEY HILTON MD Dec 11, 2018 08:36
[2018-12-11] MEDS: CYANOCOBALAMIN (VITAMIN B-12) 1,000 MCG TABLET. PO SCH (08:38)
--- NOTE | 2018-12-11 09:12 | PDOC ---
PROGRESS NOTES Subjective Subjective Reports improved sensation in right leg with decreased pain. Improved strength right leg and ankle. 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 Labs Laboratory Tests Test 12/09/18 14:50 12/09/18 15:01 12/09/18 15:20 Urine Color Yellow Urine Clarity Clear Urine pH 5.5 Urine Specific [place] 1.015 Urine Protein Negative mg/dL (NEG-TRACE) Urine Glucose (UA) Negative mg/dL (NEG) Urine Ketones (Stick) Negative mg/dL (NEG) Urine Blood Negative (NEG) Urine Nitrite Negative (NEG) Urine Bilirubin Negative (NEG) Urine Urobilinogen Dipstick 0.2 mg/dL (0.2 mg/dL) Urine Leukocyte Esterase Negative (NEG) Urine RBC 0 /HPF (0-2) Urine WBC 1-4 /HPF (0-4) Urine Squamous Epithelial Cells Few /LPF Urine Bacteria Few /HPF (0-FEW) Urine Hyaline Casts Occasional /HPF Urine Mucus Mod /LPF Bedside Urine HCG, Qualitative Hcg negative (Negative) White Blood Count 8.2 x10^3/uL (4.0-11.0) Red Blood Count 4.56 x10^6/uL (3.50-5.40) Hemoglobin 13.4 g/dL (12.0-15.5) Hematocrit 38.9 % (36.0-47.0) Mean Corpuscular Volume 85 fL (79-100) Mean Corpuscular Hemoglobin 29 pg (25-35) Mean Corpuscular Hemoglobin Concent 35 g/dL (31-37) Red Cell Distribution Width 13.6 % (11.5-14.5) Platelet Count 243 x10^3/uL (140-400) Neutrophils (%) (Auto) 80 % (31-73) Lymphocytes (%) (Auto) 14 % (24-48) Monocytes (%) (Auto) 4 % (0-9) Eosinophils (%) (Auto) 1 % (0-3) Basophils (%) (Auto) 1 % (0-3) Neutrophils # (Auto) 6.5 x10^3/uL (1.8-7.7) Lymphocytes # (Auto) 1.2 x10^3/uL (1.0-4.8) Monocytes # (Auto) 0.4 x10^3/uL (0.0-1.1) Eosinophils # (Auto) 0.1 x10^3/uL (0.0-0.7) Basophils # (Auto) 0.1 x10^3/uL (0.0-0.2) Sodium Level 141 mmol/L (136-145) Potassium Level 4.3 mmol/L (3.5-5.1) Chloride Level 104 mmol/L (98-107) Carbon Dioxide Level 26 mmol/L (21-32) Anion Gap 11 (6-14) Blood Urea Nitrogen 15 mg/dL (7-20) Creatinine 0.8 mg/dL (0.6-1.0) Estimated GFR (Cockcroft-Gault) 77.6 BUN/Creatinine Ratio 19 (6-20) Glucose Level 120 mg/dL (70-99) Calcium Level 9.2 mg/dL (8.5-10.1) Total Bilirubin 0.3 mg/dL (0.2-1.0) Aspartate Amino Transf (AST/SGOT) 21 U/L (15-37) Alanine Aminotransferase (ALT/SGPT) 30 U/L (14-59) Alkaline Phosphatase 107 U/L (46-116) Total Protein 7.4 g/dL (6.4-8.2) Albumin 3.4 g/dL (3.4-5.0) Albumin/Globulin Ratio 0.9 (1.0-1.7) Medications Current Medications Cyclobenzaprine HCl (Flexeril) 10 mg 1X ONCE PO Last administered on 12/09/18 15:32; Start 12/09/18 at 15:00; Stop 12/09/18 at 15:01; Status DC Ondansetron HCl (Zofran) 4 mg PRN Q8HRS PRN IV NAUSEA/VOMITING Last administered on 12/09/18 17:30; Start 12/09/18 at 16:30; Stop 12/10/18 at 16:29; Status DC Hydromorphone HCl (Dilaudid) 0.5 mg 1X ONCE IV Last administered on 12/09/18 17:31; Start 12/09/18 at 16:45; Stop 12/09/18 at 16:46; Status DC Methylprednisolone Sodium Succinate (SOLU-Medrol 125MG VIAL) 125 mg 1X ONCE IV Last administered on 12/09/18 17:30; Start 12/09/18 at 16:45; Stop 12/09/18 at 16:46; Status DC Dexamethasone Sodium Phosphate (Decadron) 4 mg Q6HRS IVP Last administered on 12/11/18at 06:00; Start 12/10/18 at 00:00 Hydromorphone HCl (Dilaudid) 0.4 mg PRN Q4HRS PRN IVP PAIN SEVERE Last administered on 12/11/18at 01:53; Start 12/09/18 at 20:15 Tramadol HCl (Ultram) 50 mg PRN Q6HRS PRN PO PAIN Last administered on 12/09/18at 20:55; Start 12/09/18 at 20:15 Cetirizine HCl (ZyrTEC) 10 mg QHS PO Last administered on 12/10/18at 21:28; Start 12/09/18 at 21:00 Duloxetine HCl (Cymbalta) 90 mg DAILY PO Last administered on 12/11/18at 08:31; Start 12/10/18 at 09:00 Leflunomide (Arava) 20 mg DAILY PO Last administered on 12/11/18at 08:31; Start 12/10/18 at 09:00 Cyanocobalamin (Vitamin B-12) 1,000 mcg DAILY PO ; Start 12/10/18 at 09:00 Diltiazem HCl (Cardizem 24hr Cd) 240 mg DAILY PO ; Start 12/10/18 at 09:00 Fluticasone Propionate (Flonase) 2 spray QHS NS Last administered on 12/10/18at 21:35; Start 12/09/18 at 21:00 Gabapentin (Neurontin) 600 mg QHS PO Last administered on 12/10/18at 21:27; Start 12/09/18 at 21:00 Pantoprazole Sodium (Protonix) 40 mg DAILYAC PO ; Start 12/10/18 at 07:30; Stop 12/11/18 at 06:35; Status DC Cyclobenzaprine HCl (Flexeril) 10 mg PRN TID PRN PO MUSCLE SPASMS Last admini stered on 12/10/18at 01:14; Start 12/09/18 at 20:15 Ondansetron HCl (Zofran) 4 mg PRN Q6HRS PRN IV NAUSEA/VOMITING; Start 12/10/18 at 10:15; Stop 12/10/18 at 20:07; Status DC Fentanyl Citrate (Fentanyl 2ml Vial) 25 mcg PRN Q5MIN PRN IV MILD PAIN 1-3; Start 12/10/18 at 10:15; Stop 12/10/18 at 20:07; Status DC Fentanyl Citrate (Fentanyl 2ml Vial) 50 mcg PRN Q5MIN PRN IV MODERATE TO SEVERE PAIN; Start 12/10/18 at 10:15; Stop 12/10/18 at 20:07; Status DC Morphine Sulfate (Morphine Sulfate) 1 mg PRN Q10MIN PRN IV SEVERE PAIN 7-10; Start 12/10/18 at 10:15; Stop 12/11/18 at 10:14; Status UNV Ringer's Solution 1,000 ml @ 30 mls/hr Q24H IV Last administered on 12/10/18at 11:43; Start 12/10/18 at 10:01; Stop 12/10/18 at 22:00; Status DC Lidocaine HCl (Xylocaine-Mpf 1% 2ml Vial) 2 ml PRN 1X PRN ID PRIOR TO IV START; Start 12/10/18 at 10:15; Stop 12/10/18 at 20:07; Status DC Hydromorphone HCl (Dilaudid) 0.5 mg PRN Q10MIN PRN IV SEV PAIN, Second choice Last administered on 12/10/18at 19:08; Start 12/10/18 at 10:15; Stop 12/10/18 at 20:07; Status DC Prochlorperazine Edisylate (Compazine) 5 mg PACU PRN PRN IV NAUSEA, MRX1; Start 12/10/18 at 10:15; Stop 12/11/18 at 10:14; Status UNV Propofol 100 ml @ As Directed STK-MED ONCE IV ; Start 12/10/18 at 10:36; Stop 12/10/18 at 10:36; Status DC Fentanyl Citrate (Fentanyl 2ml Vial) 100 mcg STK-MED ONCE .ROUTE ; Start at 10:49; Stop 12/10/18 at 10:49; Status DC Rocuronium [place] (Zemuron) 50 mg STK-MED ONCE .ROUTE ; Start 12/10/18 at 10:49; Stop 12/10/18 at 10:49; Status DC Midazolam HCl (Versed) 2 mg STK-MED ONCE .ROUTE ; Start 12/10/18 at 10:49; Stop 12/10/18 at 10:49; Status DC Remifentanil HCl (Ultiva) 2 mg STK-MED ONCE IV ; Start 12/10/18 at 10:49; Stop 12/10/18 at 10:49; Status DC Phenylephrine HCl (Redd-Synephrine Inj) 10 mg STK-MED ONCE .ROUTE ; Start 12/10/18 at 10:49; Stop 12/10/18 at 10:49; Status DC Propofol 20 ml @ As Directed STK-MED ONCE IV ; Start 12/10/18 at 10:49; Stop 12/10/18 at 10:49; Status DC Lidocaine HCl (Lidocaine Pf 2% Vial) 5 ml STK-MED ONCE .ROUTE ; Start 12/10/18 at 10:49; Stop 12/10/18 at 10:49; Status DC Dexamethasone Sodium Phosphate (Decadron) 20 mg STK-MED ONCE .ROUTE ; Start 12/10/18 at 10:49; Stop 12/10/18 at 10:49; Status DC Ondansetron HCl (Zofran) 4 mg STK-MED ONCE .ROUTE ; Start 12/10/18 at 10:49; Stop 12/10/18 at 10:49; Status DC Diphenhydramine HCl (Benadryl) 50 mg STK-MED ONCE .ROUTE ; Start 12/10/18 at 11:45; Stop 12/10/18 at 11:45; Status DC Diphenhydramine HCl (Benadryl) 50 mg STK-MED ONCE .ROUTE ; Start 12/10/18 at 11:45; Stop 12/10/18 at 11:45; Status DC Bacitracin 55162 unit/Sodium Chloride 1,000 ml @ 1,000 mls/hr 1X ONCE IRR Last administered on 12/10/18at 14:23; Start 12/10/18 at 12:00; Stop 12/10/18 at 12:59; Status DC Gelatin (Gelfoam Size 100) 1 each STK-MED ONCE .ROUTE Last administered on 12/10/18at 15:38; Start 12/10/18 at 11:50; Stop 12/10/18 at 11:51; Status DC Bupivacaine HCl (Sensorcaine Mpf 0.5%) 30 ml STK-MED ONCE .ROUTE Last administered on 12/10/18at 14:23; Start 12/10/18 at 11:50; Stop 12/10/18 at 11:51; Status DC Lidocaine/ Epinephrine (LIDOCAINE 1%-EPI 1:100,000 Multi-Dose) 20 ml STK-MED ONCE .ROUTE Last administered on 12/10/18at 14:23; Start 12/10/18 at 11:51; Stop 12/10/18 at 11:51; Status DC Thrombin 20,000 unit STK-MED ONCE TP Last administered on 12/10/18at 15:38; Start 12/10/18 at 11:51; Stop 12/10/18 at 11:51; Status DC Hydromorphone HCl (Dilaudid) 2 mg STK-MED ONCE .ROUTE ; Start 12/10/18 at 12:22; Stop 12/10/18 at 12:22; Status DC Hydromorphone HCl (Dilaudid) 2 mg 1X ONCE IV Last administered on 12/10/18at 12:29; Start 12/10/18 at 12:30; Stop 12/10/18 at 12:31; Status DC Cefazolin Sodium 100 ml @ As Directed STK-MED ONCE IV ; Start 12/10/18 at 13:15; Stop 12/10/18 at 13:15; Status DC Glycopyrrolate (Robinul) 1 mg STK-MED ONCE .ROUTE ; Start 12/10/18 at 14:11; Stop 12/10/18 at 14:11; Status DC Remifentanil HCl (Ultiva) 1 mg STK-MED ONCE IV ; Start 12/10/18 at 16:29; Stop 12/10/18 at 16:30; Status DC Propofol 50 ml @ As Directed STK-MED ONCE IV ; Start 12/10/18 at 17:02; Stop 12/10/18 at 17:02; Status DC Cefazolin Sodium (Ancef) 1 gm STK-MED ONCE .ROUTE ; Start 12/10/18 at 17:48; Stop 12/10/18 at 17:49; Status DC Cefazolin Sodium (Ancef) 1 gm STK-MED ONCE .ROUTE ; Start 12/10/18 at 17:48; Stop 12/10/18 at 17:49; Status DC Neostigmine Methylsulfate (Neostigmine Methylsulfate) 5 mg STK-MED ONCE .ROUTE ; Start 12/10/18 at 17:54; Stop 12/10/18 at 17:54; Status DC Multivitamins (Thera M Plus) 1 tab DAILY PO Last administered on 12/11/18at 08:31; Start 12/11/18 at 09:00 Calcium/Vitamin D (Oscal D 500mg/ 200uts) 1 tab BIDWMEALS PO Last administered on 12/11/18at 08:32; Start 12/11/18 at 08:00 Ferrous Sulfate (Feosol) 325 mg BIDWMEALS PO Last administered on 12/11/18at 08:32; Start 12/11/18 at 08:00 Acetaminophen (Tylenol) 650 mg PRN Q6HRS PRN PO MILD PAIN / TEMP; Start 12/10/18 at 18:15 Al Hydroxide/Mg Hydroxide (Mylanta Plus Xs) 30 ml PRN Q3HRS PRN PO HEARTBURN / GAS; Start 12/10/18 at 18:15 Calcium Carbonate/ Glycine (Tums) 500 mg PRN Q3HRS PRN PO INDIGESTION; Start 12/10/18 at 18:15 Diphenhydramine HCl (Benadryl) 25 mg PRN Q6HRS PRN PO ITCHING; Start 12/10/18 at 18:15 Diphenhydramine HCl (Benadryl) 25 mg PRN Q6HRS PRN IV ITCHING Last administered on 12/11/18at 00:36; Start 12/10/18 at 18:15 Zolpidem Tartrate (Ambien) 5 mg PRN QHS PRN PO INSOMNIA, MAY REPEAT IN 1HR; Start 12/10/18 at 18:15 Naloxone HCl (Narcan) 0.1 mg PRN Q2MIN PRN IV ADMIN; Start 12/10/18 at 18:15 Sodium Chloride (Normal Saline Flush) 3 ml QSHIFT PRN IV AFTER MEDS AND BLOOD DRAWS; Start 12/10/18 at 18:15 Naloxone HCl (Narcan) 0.4 mg PRN Q2MIN PRN IV SEE INSTRUCTIONS; Start 12/10/18 at 18:15 Sodium Chloride 1,000 ml @ 25 mls/hr Q24H IV ; Start 12/10/18 at 18:11 Methocarbamol (Robaxin) 750 mg TID PO Last administered on 12/11/18at 08:31; Start 12/10/18 at 21:00 Senna/Docusate Sodium (Senna Plus) 1 tab BID PO Last administered on 12/11/18at 08:32; Start 12/10/18 at 21:00 Docusate Sodium (Colace) 100 mg BID PO Last administered on 12/11/18at 08:32; Start 12/10/18 at 21:00 Magnesium Hydroxide (Milk Of Magnesia) 2,400 mg PRN Q12HR PRN PO CONSTIPATION; Start 12/10/18 at 18:15 Ondansetron HCl (Zofran) 4 mg PRN Q6HRS PRN IV NAUESA, 1ST CHOICE; Start 12/10/18 at 18:15 Fentanyl Citrate (Fentanyl 2ml Vial) 100 mcg STK-MED ONCE .ROUTE ; Start 12/10/18 at 18:39; Stop 12/10/18 at 18:39; Status DC Hydromorphone HCl (Dilaudid) 2 mg STK-MED ONCE .ROUTE ; Start 12/10/18 at 18:44; Stop 12/10/18 at 18:44; Status DC Fentanyl Citrate (Fentanyl 2ml Vial) 50 mcg PRN Q1HR PRN IVP PAIN MILD TO MOD Last administered on 12/11/18at 05:26; Start 12/10/18 at 20:45 Pantoprazole Sodium (Protonix) 40 mg HS PO ; Start 12/11/18 at 21:00 Active Scripts Active Reported Acetaminophen-Cod #3 Tablet (Acetaminophen/Codeine Phosphate) 1 Each Tablet 1-2 Tab PO PRN Q4-6HRS PRN Tylenol With Codeine #3 Tablet (Acetaminophen/Codeine Phosphate) 1 Each Tablet 1 Tab PO PRN Q4HRS PRN Turmeric Complex 500 mg Cap (Turmeric/Turmeric Ext/Pepr Ext) 1 Each Capsule 1 Each PO DAILY Flonase Allergy Relief (Fluticasone Propionate) 9.9 Ml [place].susp 2 Sprays NS QHS Diltiazem 24Hr ER (LA) (Diltiazem HCl) 240 Mg Tab.er.24h 240 Mg PO DAILY Vitamin B-12 (Cyanocobalamin (Vitamin B-12)) 1,000 Mcg Tab.subl 1,000 Mcg SL DAILY Prednisone 2.5 Mg Tablet 2 Tab PO DAILY Cymbalta (Duloxetine Hcl) 30 Mg Capsule.dr 3 Cap PO DAILY Gabapentin 600 Mg Tablet 600 Mg PO QHS Leflunomide 20 Mg Tablet 20 Mg PO DAILY Zyrtec (Cetirizine Hcl) 10 Mg Tablet 1 Tab PO QHS Ranitidine Hcl 150 Mg Capsule 1 Cap PO QODAY Omeprazole 20 Mg Capsule.dr 1 Cap PO QODAY Vitals/I & O Vital Sign - Last 24 Hours 12/10/18 12/10/18 12/10/18 12/10/18 09:20 09:50 11:03 11:36 Temp 97.8 97.8 97.8 97.8 Pulse 80 80 Resp 18 15 B/P (MAP) 118/62 (80) 118/62 Pulse Ox 93 95 95 O2 Delivery Room Air Room Air Room Air Room Air 12/10/18 12/10/18 12/10/18 12/10/18 12:29 18:19 18:19 18:30 Temp 98.5 98.5 98.5 98.5 Pulse 80 84 Resp 15 18 20 B/P (MAP) 135/67 134/68 Pulse Ox 95 99 100 O2 Delivery Room Air Nasal Cannula Nasal Cannula Nasal Cannula O2 Flow Rate 3 3 3 12/10/18 12/10/18 12/10/18 12/10/18 18:45 19:00 19:08 19:15 Temp 98.5 98.5 98.5 98.5 Pulse 70 64 Resp 20 20 20 20 B/P (MAP) 119/65 115/61 Pulse Ox 3 100 99 100 O2 Delivery Nasal Cannula Nasal Cannula Nasal Cannula Nasal Cannula O2 Flow Rate 3 3.0 1 12/10/18 12/10/18 12/10/18 12/10/18 19:30 19:30 20:00 20:15 Temp 98.6 98.3 98.6 98.3 Pulse 62 68 68 Resp 18 24 B/P (MAP) 115/61 109/61 (77) 112/55 (74) Pulse Ox 100 95 O2 Delivery Nasal Cannula Nasal Cannula Room Air O2 Flow Rate 1 1 12/10/18 12/10/18 12/10/18 12/10/18 20:23 20:30 20:45 20:55 Pulse 62 62 Resp 18 24 B/P (MAP) 108/56 (73) 111/52 (71) Pulse Ox 99 O2 Delivery Room Air Room Air 12/10/18 12/10/18 12/11/18 12/11/18 21:15 23:46 01:53 05:26 Pulse 62 Resp 16 24 16 B/P (MAP) 108/56 (73) O2 Delivery Room Air Room Air 12/11/18 12/11/18 06:00 06:27 Temp 98.0 98.0 Pulse 65 Resp 20 20 B/P (MAP) 102/54 (70) Pulse Ox 97 O2 Delivery Room Air Room Air Intake and Output 12/10/18 12/10/18 12/11/18 14:59 22:59 06:59 Intake Total 1400 ml 2500 ml Output Total 250 ml 2550 ml Balance 1150 ml -50 ml CANDIS GÓMEZ MD Dec 11, 2018 09:12
[2018-12-11] MEDS: traMADol 50 MG TABLET PO PRN (11:35)
[2018-12-11 17:33] VITALS: BP 111/67
[2018-12-11 19:24] VITALS: BP 114/72
[2018-12-11] MEDS ORDERED: ATEN100T PO (19:50)
[2018-12-11] MEDS ORDERED: MAGN400T22 PO (19:50)
[2018-12-11] MEDS ORDERED: LISI1TAB20 PO (19:50)
[2018-12-11] MEDS ORDERED: DULO60CA6 PO (19:50)
[2018-12-11] MEDS ORDERED: folic acid PO (19:50)
[2018-12-11] MEDS: FOLIC ACID 1 MG TABLET. PO SCH (20:24)
[2018-12-11] MEDS: CETIRIZINE HCL 10 MG TABLET. PO SCH (20:24)
[2018-12-11] MEDS: MAGNESIUM OXIDE 400 MG TABLET PO SCH (20:24)
[2018-12-11] MEDS: diphenhydrAMINE HCL 25 MG CAPSULE PO PRN (20:25)
[2018-12-11] MEDS: GABAPENTIN 300 MG CAPSULE. PO SCH (20:25)
[2018-12-11] MEDS: FLUTICASONE 50MCG/NASAL SPRAY 16GM BOTTLE. NS SCH (20:25)
[2018-12-11] MEDS: ATENOLOL 50 MG TABLET. PO SCH (20:30)
[2018-12-11] MEDS ORDERED: PANTOPRAZOLE 40 MG TABLET.DR. PO SCH (21:00)
[2018-12-12] MEDS: DEXAMETHASONE SOD PHOS 4 MG/ML VIAL IVP SCH ×2 (00:23→06:17)
[2018-12-12] MEDS: fentaNYL PF VIAL 100 MCG/2 ML VIAL IVP PRN ×3 (00:25→08:51)
[2018-12-12 00:34] VITALS: BP 106/58
[2018-12-12] MEDS: diphenhydrAMINE HCL 25 MG CAPSULE PO PRN (04:46)
[2018-12-12 06:32] VITALS: BP 119/58
--- NOTE | 2018-12-12 08:22 | PDOC ---
PROGRESS NOTES Chief Complaint Chief Complaint A/P: Acute lumbar pain - multiple drug allergies. Will stress dose steroids as she takes chronic prednisone for her lupus. Flexeril. Dilaudid and tramadol prn Right leg weakness - confirmed radiculopathy, acute impingement on MRI ordered. Decadron. Consulted Dr. Isidro - s/p laminectomy Urinary incontinence - ED notes rectal tone positive. MRI lumbar ordered Lupus - no hx of nephritis, no recent flare. will stress dose steroids now. Cont arava HTN - cont meds FEN - General diet PPX - SCDs FULL CODE Dispo - inpatient for inability to walk,pain control History of Present Illness History of Present Illness Ms Sawyer is a 43yo F w/ PMHx Lupus, HTN, lumbar disc disease s/p right L3-4 decompression/discectomy 03/2018 with excellent outcome who presents to the ED c/o progressive lower back pain with radiation down her right leg with associated right leg weakness over the past 4 days. In ED she has lost bladder control. She denies a clear inciting event or injury. CT lumbar spine shows no acute bony abnormality, confirms prior surgery. She is being admitted for further diagnosis and treatment, unable to walk. 12/10: Still in severe pain. MRI completed - L3-4, a disc protrusion narrows the right lateral recess with compression of the descending right L4 root nerve root and abutment of the descending right L5 nerve root. Correlate for right L4 and L5 radiculopathy. To OR for right laminectomy L3-4 with discectomy, posterolateral fusion L3-4 with allograft and autograft substrate 12/11: Transferred to ortho unit post-op. improved sensation in right leg with decreased pain. Improved strength right leg and ankle, but still not back to normal. Pain is more manageable today. Passing flatus. No CP or SOB. Able to ambulated a bit with PT, really wishes to go for outpatient rehab. Has prescriptions for this to go to [facility] in [place] and has scripts for robaxin, dilaudid PO, and senna/colace. Vitals Vitals Vital Signs Date Time Temp Pulse Resp B/P (MAP) Pulse Ox O2 Delivery O2 Flow Rate FiO2 12/12/18 06:32 97.9 69 20 119/58 (78) 92 Room Air 97.9 Physical Exam General: Alert, Oriented X3, Cooperative, No acute distress Lungs: Clear, Wheezing Abdomen: Normal bowel sounds, Soft, No tenderness, No hepatosplenomegaly, No masses Extremities: No clubbing, No cyanosis, No edema, Normal pulses, Other (Lumbar tenderness and paraspinal tenderness) Skin: No rashes, No breakdown, No significant lesion Assessment and Plan Assessmemt and Plan Problems Medical Problems: (1) Back pain Status: Acute (2) Paresthesia Status: Acute Comment Review of Relevant I have reviewed the following items juan daniel (where applicable) has been applied. Medications Current Medications Cyclobenzaprine HCl (Flexeril) 10 mg 1X ONCE PO Last administered on 12/09/18 15:32; Start 12/09/18 at 15:00; Stop 12/09/18 at 15:01; Status DC Ondansetron HCl (Zofran) 4 mg PRN Q8HRS PRN IV NAUSEA/VOMITING Last administ ered on 12/09/18at 17:30; Start 12/09/18 at 16:30; Stop 12/10/18 at 16:29; Status DC Hydromorphone HCl (Dilaudid) 0.5 mg 1X ONCE IV Last administered on 12/09/18at 17:31; Start 12/09/18 at 16:45; Stop 12/09/18 at 16:46; Status DC Methylprednisolone Sodium Succinate (SOLU-Medrol 125MG VIAL) 125 mg 1X ONCE IV Last administered on 12/09/18 17:30; Start 12/09/18 at 16:45; Stop 12/09/18 at 16:46; Status DC Dexamethasone Sodium Phosphate (Decadron) 4 mg Q6HRS IVP Last administered on 12/12/18at 06:17; Start 12/10/18 at 00:00 Hydromorphone HCl (Dilaudid) 0.4 mg PRN Q4HRS PRN IVP PAIN SEVERE Last administered on 12/11/18at 01:53; Start 12/09/18 at 20:15 Tramadol HCl (Ultram) 50 mg PRN Q6HRS PRN PO PAIN Last administered on 12/11/18at 11:35; Start 12/09/18 at 20:15 Cetirizine HCl (ZyrTEC) 10 mg QHS PO Last administered on 12/11/18at 20:24; Start 12/09/18 at 21:00 Duloxetine HCl (Cymbalta) 90 mg DAILY PO Last administered on 12/11/18at 08:31; Start 12/10/18 at 09:00 Leflunomide (Arava) 20 mg DAILY PO Last administered on 12/11/18at 08:31; Start 12/10/18 at 09:00 Cyanocobalamin (Vitamin B-12) 1,000 mcg DAILY PO ; Start 12/10/18 at 09:00 Diltiazem HCl (Cardizem 24hr Cd) 240 mg DAILY PO ; Start 12/10/18 at 09:00 Fluticasone Propionate (Flonase) 2 spray QHS NS Last administered on 12/11/18at 20:25; Start 12/09/18 at 21:00 Gabapentin (Neurontin) 600 mg QHS PO Last administered on 12/11/18at 20:25; Start 12/09/18 at 21:00 Pantoprazole Sodium (Protonix) 40 mg DAILYAC PO ; Start 12/10/18 at 07:30; Stop 12/11/18 at 06:35; Status DC Cyclobenzaprine HCl (Flexeril) 10 mg PRN TID PRN PO MUSCLE SPASMS Last administered on 12/10/18at 01:14; Start 12/09/18 at 20:15 Ondansetron HCl (Zofran) 4 mg PRN Q6HRS PRN IV NAUSEA/VOMITING; Start 12/10/18 at 10:15; Stop 12/10/18 at 20:07; Status DC Fentanyl Citrate (Fentanyl 2ml Vial) 25 mcg PRN Q5MIN PRN IV MILD PAIN 1-3; Start 12/10/18 at 10:15; Stop 12/10/18 at 20:07; Status DC Fentanyl Citrate (Fentanyl 2ml Vial) 50 mcg PRN Q5MIN PRN IV MODERATE TO SEVERE PAIN; Start 12/10/18 at 10:15; Stop 12/10/18 at 20:07; Status DC Morphine Sulfate (Morphine Sulfate) 1 mg PRN Q10MIN PRN IV SEVERE PAIN 7-10; Start 12/10/18 at 10:15; Stop 12/11/18 at 10:14; Status UNV Ringer's Solution 1,000 ml @ 30 mls/hr Q24H IV Last administered on 12/10/18at 11:43; Start 12/10/18 at 10:01; Stop 12/10/18 at 22:00; Status DC Lidocaine HCl (Xylocaine-Mpf 1% 2ml Vial) 2 ml PRN 1X PRN ID PRIOR TO IV START; Start 12/10/18 at 10:15; Stop 12/10/18 at 20:07; Status DC Hydromorphone HCl (Dilaudid) 0.5 mg PRN Q10MIN PRN IV SEV PAIN, Second choice Last administered on 12/10/18at 19:08; Start 12/10/18 at 10:15; Stop 12/10/18 at 20:07; Status DC Prochlorperazine Edisylate (Compazine) 5 mg PACU PRN PRN IV NAUSEA, MRX1; Start 12/10/18 at 10:15; Stop 12/11/18 at 10:14; Status UNV Propofol 100 ml @ As Directed STK-MED ONCE IV ; Start 12/10/18 at 10:36; Stop 12/10/18 at 10:36; Status DC Fentanyl Citrate (Fentanyl 2ml Vial) 100 mcg STK-MED ONCE .ROUTE ; Start 12/10/18 at 10:49; Stop 12/10/18 at 10:49; Status DC Rocuronium [place] (Zemuron) 50 mg STK-MED ONCE .ROUTE ; Start 12/10/18 at 10:49; Stop 12/10/18 at 10:49; Status DC Midazolam HCl (Versed) 2 mg STK-MED ONCE .ROUTE ; Start 12/10/18 at 10:49; Stop 12/10/18 at 10:49; Status DC Remifentanil HCl (Ultiva) 2 mg STK-MED ONCE IV ; Start 12/10/18 at 10:49; Stop 12/10/18 at 10:49; Status DC Phenylephrine HCl (Redd-Synephrine Inj) 10 mg STK-MED ONCE .ROUTE ; Start 12/10/18 at 10:49; Stop 12/10/18 at 10:49; Status DC Propofol 20 ml @ As Directed STK-MED ONCE IV ; Start 12/10/18 at 10:49; Stop 12/10/18 at 10:49; Status DC Lidocaine HCl (Lidocaine Pf 2% Vial) 5 ml STK-MED ONCE .ROUTE ; Start 12/10/18 at 10:49; Stop 12/10/18 at 10:49; Status DC Dexamethasone Sodium Phosphate (Decadron) 20 mg STK-MED ONCE .ROUTE ; Start 12/10/18 at 10:49; Stop 12/10/18 at 10:49; Status DC Ondansetron HCl (Zofran) 4 mg STK-MED ONCE .ROUTE ; Start 12/10/18 at 10:49; Stop 12/10/18 at 10:49; Status DC Diphenhydramine HCl (Benadryl) 50 mg STK-MED ONCE .ROUTE ; Start 12/10/18 at 11:45; Stop 12/10/18 at 11:45; Status DC Diphenhydramine HCl (Benadryl) 50 mg STK-MED ONCE .ROUTE ; Start 12/10/18 at 11:45; Stop 12/10/18 at 11:45; Status DC Bacitracin 06778 unit/Sodium Chloride 1,000 ml @ 1,000 mls/hr 1X ONCE IRR Last administered on 12/10/18at 14:23; Start 12/10/18 at 12:00; Stop 12/10/18 at 12:59; Status DC Gelatin (Gelfoam Size 100) 1 each STK-MED ONCE .ROUTE Last administered on 12/10/18at 15:38; Start 12/10/18 at 11:50; Stop 12/10/18 at 11:51; Status DC Bupivacaine HCl (Sensorcaine Mpf 0.5%) 30 ml STK-MED ONCE .ROUTE Last administered on 12/10/18at 14:23; Start 12/10/18 at 11:50; Stop 12/10/18 at 11:51; Status DC Lidocaine/ Epinephrine (LIDOCAINE 1%-EPI 1:100,000 Multi-Dose) 20 ml STK-MED ONCE .ROUTE Last administered on 12/10/18at 14:23; Start 12/10/18 at 11:51; Stop 12/10/18 at 11:51; Status DC Thrombin 20,000 unit STK-MED ONCE TP Last administered on 12/10/18at 15:38; Start 12/10/18 at 11:51; Stop 12/10/18 at 11:51; Status DC Hydromorphone HCl (Dilaudid) 2 mg STK-MED ONCE .ROUTE ; Start 12/10/18 at 12:22; Stop 12/10/18 at 12:22; Status DC Hydromorphone HCl (Dilaudid) 2 mg 1X ONCE IV Last administered on 12/10/18at 12:29; Start 12/10/18 at 12:30; Stop 12/10/18 at 12:31; Status DC Cefazolin Sodium 100 ml @ As Directed STK-MED ONCE IV ; Start 12/10/18 at 13:15; Stop 12/10/18 at 13:15; Status DC Glycopyrrolate (Robinul) 1 mg STK-MED ONCE .ROUTE ; Start 12/10/18 at 14:11; Stop 12/10/18 at 14:11; Status DC Remifentanil HCl (Ultiva) 1 mg STK-MED ONCE IV ; Start 12/10/18 at 16:29; Stop 12/10/18 at 16:30; Status DC Propofol 50 ml @ As Directed STK-MED ONCE IV ; Start 12/10/18 at 17:02; Stop 12/10/18 at 17:02; Status DC Cefazolin Sodium (Ancef) 1 gm STK-MED ONCE .ROUTE ; Start 12/10/18 at 17:48; Stop 12/10/18 at 17:49; Status DC Cefazolin Sodium (Ancef) 1 gm STK-MED ONCE .ROUTE ; Start 12/10/18 at 17:48; Stop 12/10/18 at 17:49; Status DC Neostigmine Methylsulfate (Neostigmine Methylsulfate) 5 mg STK-MED ONCE .ROUTE ; Start 12/10/18 at 17:54; Stop 12/10/18 at 17:54; Status DC Multivitamins (Thera M Plus) 1 tab DAILY PO Last administered on 12/11/18at 08:31; Start 12/11/18 at 09:00 Calcium/Vitamin D (Oscal D 500mg/ 200uts) 1 tab BIDWMEALS PO Last administered on 12/11/18at 17:27; Start 12/11/18 at 08:00 Ferrous Sulfate (Feosol) 325 mg BIDWMEALS PO Last administered on 12/11/18at 17:27; Start 12/11/18 at 08:00 Acetaminophen (Tylenol) 650 mg PRN Q6HRS PRN PO MILD PAIN / TEMP; Start 12/10/18 at 18:15 Al Hydroxide/Mg Hydroxide (Mylanta Plus Xs) 30 ml PRN Q3HRS PRN PO HEARTBURN / GAS; Start 12/10/18 at 18:15 Calcium Carbonate/ Glycine (Tums) 500 mg PRN Q3HRS PRN PO INDIGESTION; Start 12/10/18 at 18:15 Diphenhydramine HCl (Benadryl) 25 mg PRN Q6HRS PRN PO ITCHING Last administered on 12/12/18at 04:46; Start 12/10/18 at 18:15 Diphenhydramine HCl (Benadryl) 25 mg PRN Q6HRS PRN IV ITCHING Last administered on 12/11/18at 14:01; Start 12/10/18 at 18:15 Zolpidem Tartrate (Ambien) 5 mg PRN QHS PRN PO INSOMNIA, MAY REPEAT IN 1HR; Start 12/10/18 at 18:15 Naloxone HCl (Narcan) 0.1 mg PRN Q2MIN PRN IV ADMIN; Start 12/10/18 at 18:15 Sodium Chloride (Normal Saline Flush) 3 ml QSHIFT PRN IV AFTER MEDS AND BLOOD DRAWS; Start 12/10/18 at 18:15 Naloxone HCl (Narcan) 0.4 mg PRN Q2MIN PRN IV SEE INSTRUCTIONS; Start 12/10/18 at 18:15 Sodium Chloride 1,000 ml @ 25 mls/hr Q24H IV ; Start 12/10/18 at 18:11; Stop 12/11/18 at 19:28; Status DC Methocarbamol (Robaxin) 750 mg TID PO Last administered on 12/11/18at 20:24; Start 12/10/18 at 21:00 Senna/Docusate Sodium (Senna Plus) 1 tab BID PO Last administered on 12/11/18at 20:26; Start 12/10/18 at 21:00 Docusate Sodium (Colace) 100 mg BID PO Last administered on 12/11/18at 20:24; Start 12/10/18 at 21:00 Magnesium Hydroxide (Milk Of Magnesia) 2,400 mg PRN Q12HR PRN PO CONSTIPATION; Start 12/10/18 at 18:15 Ondansetron HCl (Zofran) 4 mg PRN Q6HRS PRN IV NAUESA, 1ST CHOICE; Start 12/10/18 at 18:15 Fentanyl Citrate (Fentanyl 2ml Vial) 100 mcg STK-MED ONCE .ROUTE ; Start 12/10/18 at 18:39; Stop 12/10/18 at 18:39; Status DC Hydromorphone HCl (Dilaudid) 2 mg STK-MED ONCE .ROUTE ; Start 12/10/18 at 18:44; Stop 12/10/18 at 18:44; Status DC Fentanyl Citrate (Fentanyl 2ml Vial) 50 mcg PRN Q1HR PRN IVP PAIN MILD TO MOD Last administered on 12/12/18at 04:46; Start 12/10/18 at 20:45 Pantoprazole Sodium (Protonix) 40 mg HS PO Last administered on 12/11/18at 20:26; Start 12/11/18 at 21:00 Magnesium Oxide (Magnesium Oxide) 400 mg DAILY PO Last administered on 12/11/18at 20:24; Start 12/11/18 at 20:30 Atenolol (Tenormin) 100 mg DAILY PO ; Start 12/11/18 at 20:30 Duloxetine HCl (Cymbalta) 60 mg DAILY PO ; Start 12/11/18 at 20:30 Lisinopril (Prinivil) 20 mg DAILY PO ; Start 12/12/18 at 09:00 Folic Acid (Folic Acid) 0.5 mg DAILY PO Last administered on 12/11/18at 20:24; Start 12/11/18 at 20:30 Hydrochlorothiazide (Hydrodiuril) 25 mg DAILY PO ; Start 12/12/18 at 09:00 Active Scripts Active Reported [folic acid] 400 Mg PO DAILY Mag-Oxide (Magnesium Oxide) 400 Mg Tablet 1 Tab PO DAILY 30 Days Atenolol 100 Mg Tablet 1 Tab PO DAILY Lisinopril-Hctz 20-25 Mg Tab (Lisinopril/Hydrochlorothiazide) 1 Each Tablet 1 Tab PO DAILY Cymbalta (Duloxetine Hcl) 60 Mg Capsule.dr 1 Cap PO DAILY Acetaminophen-Cod #3 Tablet (Acetaminophen/Codeine Phosphate) 1 Each Tablet 1-2 Tab PO PRN Q4-6HRS PRN Tylenol With Codeine #3 Tablet (Acetaminophen/Codeine Phosphate) 1 Each Tablet 1 Tab PO PRN Q4HRS PRN Turmeric Complex 500 mg Cap (Turmeric/Turmeric Ext/Pepr Ext) 1 Each Capsule 1 Each PO DAILY Flonase Allergy Relief (Fluticasone Propionate) 9.9 Ml [place].susp 2 Sprays NS QHS Vitamin B-12 (Cyanocobalamin (Vitamin B-12)) 1,000 Mcg Tab.subl 1,000 Mcg SL DAILY Leflunomide 20 Mg Tablet 20 Mg PO DAILY Zyrtec (Cetirizine Hcl) 10 Mg Tablet 1 Tab PO QHS Ranitidine Hcl 150 Mg Capsule 1 Cap PO QODAY Omeprazole 20 Mg Capsule. 1 Cap PO QODAY Vitals/I & O Vital Sign - Last 24 Hours 12/11/18 12/11/18 12/11/18 12/11/18 11:00 15:00 17:33 19:24 Temp 97.6 98.2 97.6 98.2 Pulse 73 67 B/P (MAP) 111/67 (82) 114/72 (86) O2 Delivery Room Air Room Air 12/11/18 12/11/18 12/11/18 12/11/18 20:26 20:30 21:00 23:00 Pulse 68 Resp 20 16 16 B/P (MAP) 106/58 O2 Delivery Room Air 12/12/18 12/12/18 12/12/18 12/12/18 00:25 00:34 01:00 03:00 Temp 98.1 98.1 Pulse 68 Resp 24 16 16 16 B/P (MAP) 106/58 (74) Pulse Ox 92 O2 Delivery Room Air Room Air 12/12/18 12/12/18 12/12/18 04:46 05:16 06:32 Temp 97.9 97.9 Pulse 69 Resp 20 20 20 B/P (MAP) 119/58 (78) Pulse Ox 92 O2 Delivery Room Air Room Air Intake and Output 12/11/18 12/11/18 12/12/18 14:59 22:59 06:59 Intake Total 2120 ml Output Total 1550 ml 400 ml Balance 570 ml -400 ml HAYLEY HILTON MD Dec 12, 2018 08:22
[2018-12-12] MEDS: LEFLUNOMIDE 10 MG TABLET. PO SCH (08:27)
[2018-12-12] MEDS: SENNOSIDES/DOCUSATE 8.6/50MG TABLET. PO SCH (08:27)
[2018-12-12] MEDS: METHOCARBAMOL 750 MG TABLET PO SCH (08:28)
[2018-12-12] MEDS: MULTIVITAMIN with MINERAL TABLET. PO SCH (08:28)
[2018-12-12] MEDS: MAGNESIUM OXIDE 400 MG TABLET PO SCH (08:28)
[2018-12-12] MEDS: FOLIC ACID 1 MG TABLET. PO SCH (08:28)
[2018-12-12] MEDS: FERROUS SULFATE 325 MG TABLET. PO SCH (08:28)
[2018-12-12] MEDS: DOCUSATE SODIUM 100 MG CAPSULE. PO SCH (08:28)
[2018-12-12] MEDS: CALCIUM CARB/VIT D3 500/200 TABLET. PO SCH (08:29)
[2018-12-12] MEDS: DULoxetine HCL 30 MG CAPSULE.DR PO SCH ×2 (08:29→08:37)
[2018-12-12 08:30] VITALS: BP 121/73
[2018-12-12] MEDS: ATENOLOL 50 MG TABLET. PO SCH (08:33)
[2018-12-12] MEDS: CYANOCOBALAMIN (VITAMIN B-12) 1,000 MCG TABLET. PO SCH (08:39)
[2018-12-12] MEDS ORDERED: LISINOPRIL 20 MG TABLET PO SCH (09:00)
[2018-12-12] MEDS ORDERED: hydroCHLOROthiazide 25 MG TABLET PO SCH (09:00)
[2018-12-12] MEDS ORDERED: HYDROmorphone 2 MG TABLET PO PRN (09:00)
--- NOTE | 2018-12-12 09:09 | PDOC ---
PROGRESS NOTES Subjective Subjective Continues to improve. Improved strength and sensation RLE. No further urine incontinence. Rehab recommended by PT. Pt only agree to outpt rehab with to transport. Objective Objective Vital Signs Date Time Temp Pulse Resp B/P (MAP) Pulse Ox O2 Delivery O2 Flow Rate FiO2 12/12/18 08:51 92 Room Air 12/12/18 08:33 75 121/73 12/12/18 06:32 97.9 20 97.9 Intake and Output 12/12/18 07:00 Intake Total 2120 ml Output Total 1950 ml Balance 170 ml Intake Oral 2120 ml Output Urine Total 1950 ml # Voids 1 # Bowel Movements 1 Physical Exam Physical Exam AAOx4, CHENG, RDF 4/5, RPF 4/5, sensation improved to LT RLE, c/d/i Assessment Assessment POD 2 L3-4 laminectomy, discectomy, fusion Plan Plan of Care -po pain control -continue therapy -will provide script for outpt rehab, pain medication, muscle relaxant, stool softener -ok to d/c otherwise from NS standpoint with standard post-op restriction - f/u two weeks with Kle/NS [phone]. Comment Review of Relevant I have reviewed the following items juan daniel (where applicable) has been applied. Medications Current Medications Cyclobenzaprine HCl (Flexeril) 10 mg 1X ONCE PO Last administered on 12/09/18at 15:32; Start 12/09/18 at 15:00; Stop 12/09/18 at 15:01; Status DC Ondansetron HCl (Zofran) 4 mg PRN Q8HRS PRN IV NAUSEA/VOMITING Last administered on 12/09/18at 17:30; Start 12/09/18 at 16:30; Stop 12/10/18 at 16:29; Status DC Hydromorphone HCl (Dilaudid) 0.5 mg 1X ONCE IV Last administered on 12/09/18at 17:31; Start 12/09/18 at 16:45; Stop 12/09/18 at 16:46; Status DC Methylprednisolone Sodium Succinate (SOLU-Medrol 125MG VIAL) 125 mg 1X ONCE IV Last administered on 12/09/18at 17:30; Start 12/09/18 at 16:45; Stop 12/09/18 at 16:46; Status DC Dexamethasone Sodium Phosphate (Decadron) 4 mg Q6HRS IVP Last administered on 12/12/18 06:17; Start 12/10/18 at 00:00 Hydromorphone HCl (Dilaudid) 0.4 mg PRN Q4HRS PRN IVP PAIN SEVERE Last administered on 12/11/18at 01:53; Start 12/09/18 at 20:15 Tramadol HCl (Ultram) 50 mg PRN Q6HRS PRN PO PAIN Last administered on 12/11/18at 11:35; Start 12/09/18 at 20:15 Cetirizine HCl (ZyrTEC) 10 mg QHS PO Last administered on 12/11/18 20:24; Start 12/09/18 at 21:00 Duloxetine HCl (Cymbalta) 90 mg DAILY PO Last administered on 12/11/18 08:31; Start 12/10/18 at 09:00 Leflunomide (Arava) 20 mg DAILY PO Last administered on 12/12/18at 08:27; Start 12/10/18 at 09:00 Cyanocobalamin (Vitamin B-12) 1,000 mcg DAILY PO ; Start 12/10/18 at 09:00 Diltiazem HCl (Cardizem 24hr Cd) 240 mg DAILY PO ; Start 12/10/18 at 09:00 Fluticasone Propionate (Flonase) 2 spray QHS NS Last administered on 12/11/18at 20:25; Start 12/09/18 at 21:00 Gabapentin (Neurontin) 600 mg QHS PO Last administered on 12/11/18at 20:25; Start 12/09/18 at 21:00 Pantoprazole Sodium (Protonix) 40 mg DAILYAC PO ; Start 12/10/18 at 07:30; Stop 12/11/18 at 06:35; Status DC Cyclobenzaprine HCl (Flexeril) 10 mg PRN TID PRN PO MUSCLE SPASMS Last administered on 12/10/18at 01:14; Start 12/09/18 at 20:15 Ondansetron HCl (Zofran) 4 mg PRN Q6HRS PRN IV NAUSEA/VOMITING; Start 12/10/18 at 10:15; Stop 12/10/18 at 20:07; Status DC Fentanyl Citrate (Fentanyl 2ml Vial) 25 mcg PRN Q5MIN PRN IV MILD PAIN 1-3; Start 12/10/18 at 10:15; Stop 12/10/18 at 20:07; Status DC Fentanyl Citrate (Fentanyl 2ml Vial) 50 mcg PRN Q5MIN PRN IV MODERATE TO SEVERE PAIN; Start 12/10/18 at 10:15; Stop 12/10/18 at 20:07; Status DC Morphine Sulfate (Morphine Sulfate) 1 mg PRN Q10MIN PRN IV SEVERE PAIN 7-10; Start 12/10/18 at 10:15; Stop 12/11/18 at 10:14; Status UNV Ringer's Solution 1,000 ml @ 30 mls/hr Q24H IV Last administered on 12/10/18at 11:43; Start 12/10/18 at 10:01; Stop 12/10/18 at 22:00; Status DC Lidocaine HCl (Xylocaine-Mpf 1% 2ml Vial) 2 ml PRN 1X PRN ID PRIOR TO IV START; Start 12/10/18 at 10:15; Stop 12/10/18 at 20:07; Status DC Hydromorphone HCl (Dilaudid) 0.5 mg PRN Q10MIN PRN IV SEV PAIN, Second choice Last administered on 12/10/18at 19:08; Start 12/10/18 at 10:15; Stop 12/10/18 at 20:07; Status DC Prochlorperazine Edisylate (Compazine) 5 mg PACU PRN PRN IV NAUSEA, MRX1; Start 12/10/18 at 10:15; Stop 12/11/18 at 10:14; Status UNV Propofol 100 ml @ As Directed STK-MED ONCE IV ; Start 12/10/18 at 10:36; Stop 12/10/18 at 10:36; Status DC Fentanyl Citrate (Fentanyl 2ml Vial) 100 mcg STK-MED ONCE .ROUTE ; Start 12/10/18 at 10:49; Stop 12/10/18 at 10:49; Status DC Rocuronium [place] (Zemuron) 50 mg STK-MED ONCE .ROUTE ; Start 12/10/18 at 10:49; Stop 12/10/18 at 10:49; Status DC Midazolam HCl (Versed) 2 mg STK-MED ONCE .ROUTE ; Start 12/10/18 at 10:49; Stop 12/10/18 at 10:49; Status DC Remifentanil HCl (Ultiva) 2 mg STK-MED ONCE IV ; Start 12/10/18 at 10:49; Stop 12/10/18 at 10:49; Status DC Phenylephrine HCl (Redd-Synephrine Inj) 10 mg STK-MED ONCE .ROUTE ; Start 12/10/18 at 10:49; Stop 12/10/18 at 10:49; Status DC Propofol 20 ml @ As Directed STK-MED ONCE IV ; Start 12/10/18 at 10:49; Stop 12/10/18 at 10:49; Status DC Lidocaine HCl (Lidocaine Pf 2% Vial) 5 ml STK-MED ONCE .ROUTE ; Start 12/10/18 at 10:49; Stop 12/10/18 at 10:49; Status DC Dexamethasone Sodium Phosphate (Decadron) 20 mg STK-MED ONCE .ROUTE ; Start 12/10/18 at 10:49; Stop 12/10/18 at 10:49; Status DC Ondansetron HCl (Zofran) 4 mg STK-MED ONCE .ROUTE ; Start 12/10/18 at 10:49; Stop 12/10/18 at 10:49; Status DC Diphenhydramine HCl (Benadryl) 50 mg STK-MED ONCE .ROUTE ; Start 12/10/18 at 11:45; Stop 12/10/18 at 11:45; Status DC Diphenhydramine HCl (Benadryl) 50 mg STK-MED ONCE .ROUTE ; Start 12/10/18 at 11:45; Stop 12/10/18 at 11:45; Status DC Bacitracin 27138 unit/Sodium Chloride 1,000 ml @ 1,000 mls/hr 1X ONCE IRR Last administered on 12/10/18at 14:23; Start 12/10/18 at 12:00; Stop 12/10/18 at 12:59; Status DC Gelatin (Gelfoam Size 100) 1 each STK-MED ONCE .ROUTE Last administered on 12/10/18at 15:38; Start 12/10/18 at 11:50; Stop 12/10/18 at 11:51; Status DC Bupivacaine HCl (Sensorcaine Mpf 0.5%) 30 ml STK-MED ONCE .ROUTE Last administered on 12/10/18at 14:23; Start 12/10/18 at 11:50; Stop 12/10/18 at 11:51; Status DC Lidocaine/ Epinephrine (LIDOCAINE 1%-EPI 1:100,000 Multi-Dose) 20 ml STK-MED ONCE .ROUTE Last administered on 12/10/18at 14:23; Start 12/10/18 at 11:51; Stop 12/10/18 at 11:51; Status DC Thrombin 20,000 unit STK-MED ONCE TP Last administered on 12/10/18at 15:38; Start 12/10/18 at 11:51; Stop 12/10/18 at 11:51; Status DC Hydromorphone HCl (Dilaudid) 2 mg STK-MED ONCE .ROUTE ; Start 12/10/18 at 12:22; Stop 12/10/18 at 12:22; Status DC Hydromorphone HCl (Dilaudid) 2 mg 1X ONCE IV Last administered on 12/10/18at 12:29; Start 12/10/18 at 12:30; Stop 12/10/18 at 12:31; Status DC Cefazolin Sodium 100 ml @ As Directed STK-MED ONCE IV ; Start 12/10/18 at 13:15; Stop 12/10/18 at 13:15; Status DC Glycopyrrolate (Robinul) 1 mg STK-MED ONCE .ROUTE ; Start 12/10/18 at 14:11; Stop 12/10/18 at 14:11; Status DC Remifentanil HCl (Ultiva) 1 mg STK-MED ONCE IV ; Start 12/10/18 at 16:29; Stop 12/10/18 at 16:30; Status DC Propofol 50 ml @ As Directed STK-MED ONCE IV ; Start 12/10/18 at 17:02; Stop 12/10/18 at 17:02; Status DC Cefazolin Sodium (Ancef) 1 gm STK-MED ONCE .ROUTE ; Start 12/10/18 at 17:48; Stop 12/10/18 at 17:49; Status DC Cefazolin Sodium (Ancef) 1 gm STK-MED ONCE .ROUTE ; Start 12/10/18 at 17:48; Stop 12/10/18 at 17:49; Status DC Neostigmine Methylsulfate (Neostigmine Methylsulfate) 5 mg STK-MED ONCE .ROUTE ; Start 12/10/18 at 17:54; Stop 12/10/18 at 17:54; Status DC Multivitamins (Thera M Plus) 1 tab DAILY PO Last administered on 12/12/18at 08:28; Start 12/11/18 at 09:00 Calcium/Vitamin D (Oscal D 500mg/ 200uts) 1 tab BIDWMEALS PO Last administered on 12/12/18at 08:29; Start 12/11/18 at 08:00 Ferrous Sulfate (Feosol) 325 mg BIDWMEALS PO Last administered on 12/12/18at 08:28; Start 12/11/18 at 08:00 Acetaminophen (Tylenol) 650 mg PRN Q6HRS PRN PO MILD PAIN / TEMP; Start 12/10/18 at 18:15 Al Hydroxide/Mg Hydroxide (Mylanta Plus Xs) 30 ml PRN Q3HRS PRN PO HEARTBURN / GAS; Start 12/10/18 at 18:15 Calcium Carbonate/ Glycine (Tums) 500 mg PRN Q3HRS PRN PO INDIGESTION; Start 12/10/18 at 18:15 Diphenhydramine HCl (Benadryl) 25 mg PRN Q6HRS PRN PO ITCHING Last administered on 12/12/18at 04:46; Start 12/10/18 at 18:15 Diphenhydramine HCl (Benadryl) 25 mg PRN Q6HRS PRN IV ITCHING Last administered on 12/11/18at 14:01; Start 12/10/18 at 18:15 Zolpidem Tartrate (Ambien) 5 mg PRN QHS PRN PO INSOMNIA, MAY REPEAT IN 1HR; Start 12/10/18 at 18:15 Naloxone HCl (Narcan) 0.1 mg PRN Q2MIN PRN IV ADMIN; Start 12/10/18 at 18:15 Sodium Chloride (Normal Saline Flush) 3 ml QSHIFT PRN IV AFTER MEDS AND BLOOD DRAWS; Start 12/10/18 at 18:15 Naloxone HCl (Narcan) 0.4 mg PRN Q2MIN PRN IV SEE INSTRUCTIONS; Start 12/10/18 at 18:15 Sodium Chloride 1,000 ml @ 25 mls/hr Q24H IV ; Start 12/10/18 at 18:11; Stop 12/11/18 at 19:28; Status DC Methocarbamol (Robaxin) 750 mg TID PO Last administered on 12/12/18at 08:28; Start 12/10/18 at 21:00 Senna/Docusate Sodium (Senna Plus) 1 tab BID PO Last administered on 12/12/18 08:27; Start 12/10/18 at 21:00 Docusate Sodium (Colace) 100 mg BID PO Last administered on 12/12/18at 08:28; Start 12/10/18 at 21:00 Magnesium Hydroxide (Milk Of Magnesia) 2,400 mg PRN Q12HR PRN PO CONSTIPATION; Start 12/10/18 at 18:15 Ondansetron HCl (Zofran) 4 mg PRN Q6HRS PRN IV NAUESA, 1ST CHOICE; Start 12/10/18 at 18:15 Fentanyl Citrate (Fentanyl 2ml Vial) 100 mcg STK-MED ONCE .ROUTE ; Start 12/10/18 at 18:39; Stop 12/10/18 at 18:39; Status DC Hydromorphone HCl (Dilaudid) 2 mg STK-MED ONCE .ROUTE ; Start 12/10/18 at 18:44; Stop 12/10/18 at 18:44; Status DC Fentanyl Citrate (Fentanyl 2ml Vial) 50 mcg PRN Q1HR PRN IVP PAIN MILD TO MOD Last administered on 12/12/18at 08:51; Start 12/10/18 at 20:45 Pantoprazole Sodium (Protonix) 40 mg HS PO Last administered on 12/11/18at 20:26; Start 12/11/18 at 21:00 Magnesium Oxide (Magnesium Oxide) 400 mg DAILY PO Last administered on 12/12/18at 08:28; Start 12/11/18 at 20:30 Atenolol (Tenormin) 100 mg DAILY PO Last administered on 12/12/18at 08:33; Start 12/11/18 at 20:30 Duloxetine HCl (Cymbalta) 60 mg DAILY PO Last administered on 12/12/18at 08:29; Start 12/11/18 at 20:30 Lisinopril (Prinivil) 20 mg DAILY PO Last administered on 12/12/18at 08:33; Start 12/12/18 at 09:00 Folic Acid (Folic Acid) 0.5 mg DAILY PO Last administered on 12/12/18at 08:28; Start 12/11/18 at 20:30 Hydrochlorothiazide (Hydrodiuril) 25 mg DAILY PO Last administered on 12/12/18at 08:33; Start 12/12/18 at 09:00 Active Scripts Active Reported [folic acid] 400 Mg PO DAILY Mag-Oxide (Magnesium Oxide) 400 Mg Tablet 1 Tab PO DAILY 30 Days Atenolol 100 Mg Tablet 1 Tab PO DAILY Lisinopril-Hctz 20-25 Mg Tab (Lisinopril/Hydrochlorothiazide) 1 Each Tablet 1 Tab PO DAILY Cymbalta (Duloxetine Hcl) 60 Mg Capsule. 1 Cap PO DAILY Acetaminophen-Cod #3 Tablet (Acetaminophen/Codeine Phosphate) 1 Each Tablet 1-2 Tab PO PRN Q4-6HRS PRN Tylenol With Codeine #3 Tablet (Acetaminophen/Codeine Phosphate) 1 Each Tablet 1 Tab PO PRN Q4HRS PRN Turmeric Complex 500 mg Cap (Turmeric/Turmeric Ext/Pepr Ext) 1 Each Capsule 1 Each PO DAILY Flonase Allergy Relief (Fluticasone Propionate) 9.9 Ml [place].susp 2 Sprays NS QHS Vitamin B-12 (Cyanocobalamin (Vitamin B-12)) 1,000 Mcg Tab.subl 1,000 Mcg SL DAILY Leflunomide 20 Mg Tablet 20 Mg PO DAILY Zyrtec (Cetirizine Hcl) 10 Mg Tablet 1 Tab PO QHS Ranitidine Hcl 150 Mg Capsule 1 Cap PO QODAY Omeprazole 20 Mg Capsule. 1 Cap PO QODAY Vitals/I & O Vital Sign - Last 24 Hours 12/11/18 12/11/18 12/11/18 12/11/18 11:00 15:00 17:33 19:24 Temp 97.6 98.2 97.6 98.2 Pulse 73 67 B/P (MAP) 111/67 (82) 114/72 (86) O2 Delivery Room Air Room Air 12/11/18 12/11/18 12/11/18 12/11/18 20:26 20:30 21:00 23:00 Pulse 68 Resp 20 16 16 B/P (MAP) 106/58 O2 Delivery Room Air 12/12/18 12/12/18 12/12/18 12/12/18 00:25 00:34 01:00 03:00 Temp 98.1 98.1 Pulse 68 Resp 24 16 16 16 B/P (MAP) 106/58 (74) Pulse Ox 92 O2 Delivery Room Air Room Air 12/12/18 12/12/18 12/12/18 12/12/18 04:46 05:16 06:32 08:33 Temp 97.9 97.9 Pulse 69 75 Resp 20 20 20 B/P (MAP) 119/58 (78) 121/73 Pulse Ox 92 O2 Delivery Room Air Room Air 12/12/18 12/12/18 08:33 08:51 Pulse 75 B/P (MAP) 121/73 Pulse Ox 92 O2 Delivery Room Air Intake and Output 12/11/18 12/11/18 12/12/18 15:00 23:00 07:00 Intake Total 2120 ml Output Total 1550 ml 400 ml Balance 570 ml -400 ml CANDIS GÓMEZ MD Dec 12, 2018 09:09
[2018-12-12 12:43] VITALS: BP 111/65
--- NOTE | 2018-12-12 13:07 | NUR ---
Discharged to home per w/c accompanied by spouse, see instruction sheet for details, belongings taken with patient
--- NOTE | 2018-12-12 14:05 | PDOC3 ---
Discharge Summary Visit Information Date of Admission: Dec 09, 2018 Date of Discharge: Dec 12, 2018 Admitting Diagnosis: Acute lumbar radiculopathy Final Diagnosis Problems Medical Problems: (1) Back pain Status: Acute (2) Paresthesia Status: Acute Brief Hospital Course Allergies Allergies Coded Allergies Type Severity Reaction Last Updated Verified hydrocodone Allergy Severe THROAT SWELLED UP 07/02/18 Yes fentanyl Allergy Intermediate PATCH ONLY 07/02/18 Yes metoclopramide Allergy Intermediate hives 07/02/18 Yes morphine Allergy Intermediate rash 07/02/18 Yes oxycodone Allergy Intermediate THROAT SWELLED UP 07/02/18 Yes prochlorperazine Allergy Intermediate lockjaw 07/02/18 Yes Vital Signs Vital Signs Date Time Temp Pulse Resp B/P (MAP) Pulse Ox O2 Delivery O2 Flow Rate FiO2 12/12/18 12:43 63 111/65 (80) 12/12/18 12:07 Room Air 12/12/18 08:51 92 12/12/18 06:32 97.9 20 97.9 Brief Hospital Course Ms Sawyer is a 43yo F w/ PMHx Lupus, HTN, lumbar disc disease s/p right L3-4 decompression/discectomy 03/2018 with excellent outcome who presents to the ED c/o progressive lower back pain with radiation down her right leg with associated right leg weakness over the past 4 days. In ED she has lost bladder control. She denies a clear inciting event or injury. CT lumbar spine shows no acute bony abnormality, confirms prior surgery. She is being admitted for further diagnosis and treatment, unable to walk. 12/10: Still in severe pain. MRI completed - L3-4, a disc protrusion narrows the right lateral recess with compression of the descending right L4 root nerve root and abutment of the descending right L5 nerve root. Correlate for right L4 and L5 radiculopathy. To OR for right laminectomy L3-4 with discectomy, posterolateral fusion L3-4 with allograft and autograft substrate 12/11: Transferred to ortho unit post-op. improved sensation in right leg with decreased pain. Improved strength right leg and ankle, but still not back to normal. Pain is more manageable today. Passing flatus. No CP or SOB. Able to ambulated a bit with PT, really wishes to go for outpatient rehab. Has prescriptions for this to go to [facility] in [place] and has scripts for robaxin, dilaudid PO, and senna/colace. A/P: Acute lumbar pain - multiple drug allergies. Will stress dose steroids as she takes chronic prednisone for her lupus. Flexeril. Dilaudid and tramadol prn Right leg weakness - confirmed radiculopathy, acute impingement on MRI ordered. Decadron. Consulted Dr. Isidro - s/p laminectomy Urinary incontinence - ED notes rectal tone positive. MRI lumbar ordered Lupus - no hx of nephritis, no recent flare. will stress dose steroids now. Cont arava HTN - cont meds Greater than 30 minutes spent on d/c Discharge Information Condition at Discharge: Improved Follow Up: Weeks (1) Disposition/Orders: D/C to Home Scheduled Atenolol (Atenolol) 100 Mg Tablet, 1 TAB PO DAILY for HTN, #30 Ref 5 (Reported) Entered as Reported by: OC GARG on 12/11/181949 Last Action: Converted on 12/11/181954 by OC GARG Cetirizine Hcl (Zyrtec) 10 Mg Tablet, 1 TAB PO QHS for ALLERGY, #30 Ref 2 (Reported) Entered as Reported by: CODEY BLOCK on 11/15/16 1413 Last Action: Continued on 12/09/182013 by HAYLEY HILTON MD Duloxetine Hcl (Cymbalta) 60 Mg Capsule.dr, 1 CAP PO DAILY for depression, #90 Ref 3 (Reported) Entered as Reported by: OC GARG on 12/11/181949 Last Action: Converted on 12/11/181954 by OC GARG Fluticasone Propionate (Flonase Allergy Relief) 9.9 Ml [place].susp, 2 SPRAYS NS QHS for ALLERGY, (Reported) Entered as Reported by: RIGOEBRTO DICK on 07/01/18 1051 Last Action: Converted on 12/09/182014 by HAYLEY HILTON MD Leflunomide (Leflunomide) 20 Mg Tablet, 20 MG PO DAILY for SLE, (Reported) Entered as Reported by: Gabrielle John on 04/13/18 1832 Last Action: Continued on 12/09/182013 by HAYLEY HILTON MD Lisinopril/Hydrochlorothiazide (Lisinopril-Hctz 20-25 Mg Tab) 1 Each Tablet, 1 TAB PO DAILY for HTN, #30 Ref 5 (Reported) Entered as Reported by: OC GARG on 12/11/181949 Last Action: Converted on 12/11/181954 by OC GARG Magnesium Oxide (Mag-Oxide) 400 Mg Tablet, 1 TAB PO DAILY for supplement for 30 Days, #30 Ref 0 (Reported) Entered as Reported by: OC GARG on 12/11/181949 Last Action: Continued on 12/11/181954 by OC GARG Omeprazole (Omeprazole) 20 Mg Capsule.dr, 1 CAP PO QODAY for GERD, #30 Ref 5 (Reported) Entered as Reported by: CODEY BLOCK on 11/15/16 141 Last Action: Converted on 12/09/182014 by HAYLEY HILTON MD Ranitidine Hcl (Ranitidine Hcl) 150 Mg Capsule, 1 CAP PO QODAY for GERD, #60 Ref 5 (Reported) Entered as Reported by: CODEY BLOCK on 11/15/16 141 Turmeric/Turmeric Ext/Pepr Ext (Turmeric Complex 500 mg Cap) 1 Each Capsule, 1 EACH PO DAILY for SUPPLEMENT, (Reported) Entered as Reported by: RIGOBERTO DICK on 07/01/18 1053 [folic acid] , 400 MG PO DAILY for supplement, (Reported) Entered as Reported by: OC GARG on 12/11/181949 Last Action: Converted on 12/11/181954 by OC GARG Discontinued Medications Acetaminophen With Codeine (Tylenol With Codeine #3 Tablet) 1 Each Tablet, 1 TAB PO PRN Q4HRS PRN for PAIN, (Reported) Entered as Reported by: CHERYL HARRIS on 07/02/18 1026 Acetaminophen With Codeine (Acetaminophen-Cod #3 Tablet) 1 Each Tablet, 1-2 TAB PO PRN Q4-6HRS PRN for PAIN, #20 (Reported) Entered as Reported by: CHERYL HARRIS on 07/02/18 1028 Cyanocobalamin (Vitamin B-12) (Vitamin B-12) 1,000 Mcg Tab.subl, 1,000 MCG SL DAILY for SUPPLEMENT, (Reported) Entered as Reported by: RIGOBERTO DICK on 07/01/18 1049 Last Action: Converted on 12/09/182014 by HAYLEY HILTON MD Diltiazem HCl (Diltiazem 24Hr ER (LA)) 240 Mg Tab.er.24h, 240 MG PO DAILY for HYPERTENSION, (Reported) Entered as Reported by: RIGOBERTO DICK on 07/01/18 1050 Last Action: Discontinued on 12/11/187 by OC GARG Duloxetine Hcl (Cymbalta) 30 Mg Capsule.dr, 3 CAP PO DAILY for DEPRESSION, #30 Ref 5 (Reported) Entered as Reported by: RIGOBERTO DICK on 07/01/18 104 Last Action: Discontinued on 12/11/181356 by OC GARG Gabapentin (Gabapentin) 600 Mg Tablet, 600 MG PO QHS for NEUROGENIC PAIN, (Reported) Entered as Reported by: RIGOBERTO DICK on 07/01/18 1045 Last Action: Discontinued on 12/11/181356 by OC GARG Prednisone (Prednisone) 2.5 Mg Tablet, 2 TAB PO DAILY for INFLAMMATION, #30 Ref 3 (Reported) Entered as Reported by: RIGOBERTO DICK on 07/01/18 1048 Last Action: Discontinued on 12/11/18 135 by HAYLEY PEREZ MD Dec 12, 2018 14:05
--- NOTE | 2018-12-15 15:07 | PATHOLOGY ---
[facility] Accession Number: [id number] . 01 Material submitted: . vertebral column - LUMBAR DECOMPRESSION AND DISC . 01 Clinical history: . Back pain, paresthesias. . 02 Diagnosis: Segments of fibrocartilaginous and skeletal muscle tissue and bone, lumbar decompression and disc: - Degenerative changes of fibrocartilaginous tissue. (JPM:tricia; 12/15/2018) QMS 12/15/2018 0914 Local . 02 Comment: There is no evidence of an acute inflammatory process or malignancy. . 02 Electronically signed: . Darren Coello MD, Pathologist NPI- [id number] . 01 Gross description: . Received in formalin labeled "Mortsolf, Jeanette, lumbar decompression and disc" is a 5.2 x 4.0 x 1.5 cm aggregate of lyles-white soft tissue and bone. Spot Sprayer tissue is submitted in cassette A1 following decalcification. ([facility]; 12/11/2018) [facility] 12/15/2018 0913 Local . 02 Pathologist provided ICD-10: M51.36 . 02 CPT . 240721, 631100 Specimen Comment: A courtesy copy of this report has been sent to Specimen Comment: [phone], , , . Specimen Comment: Report sent to ,DR HILTON,DR GONZALEZ / DR ALAN Performed at: 01 [facility] [address], [place] [id number] MD Kaleb Vazquez MD Phone: [phone] Performed at: 02 [facility] [address], [place] [id number] MD Darren Coello MD Phone: [phone]
--- NOTE | 2018-12-29 13:53 | OP ---
DATE OF SURGERY: 12/10/2018 SURGEON: Roddy Gómez MD. CERTIFIED HEALTH EDUCATION SPECIALIST: Doris. PREOPERATIVE DIAGNOSES: Recurrent disk herniation, lumbar 3-4, with radiculopathy and weakness. POSTOPERATIVE DIAGNOSES: Recurrent disk herniation, lumbar 3-4, with radiculopathy and weakness. PROCEDURES: Right laminectomy at lumbar 3 and 4 with discectomy with instrumented posterolateral fusion of L3-L4 utilizing allograft and autograft substrate with bone marrow taken from a separate fascial incision. CT-guided stereotaxis and neuromonitoring. ANESTHESIA: General. COMPLICATIONS: None intraprocedurally. INDICATIONS FOR THE PROCEDURE: The patient is a 43-year-old female who presents with new onset right lower extremity pain with weakness with a recurrent disk herniation on the right at lumbar 3-4 with significant mass effect on the adjacent neural elements. She has had multiple disk herniations at this location in the past. Please refer to the patient's chart for additional details. DESCRIPTION OF PROCEDURE: After informed consent was obtained, the patient was brought to the operating room. She was placed under general anesthesia. She was placed in the prone position on the [place] table. All pressure points were checked and padded appropriately. The lumbar region was prepped and draped in the usual sterile fashion. The patient had a previous lumbar incision. This was reopened with a scalpel, centered over the region just caudal to the lumbar 3-4 region. Spinous process was localized caudal to the region of lumbar 3-4 and stereotactic arm was attached to the spinous process of L5-S1. This was secured and a stereotactic image was taken with a 3D C-arm and this was fused with a stereotactic CT with good localization. The incision over the region of lumbar 3-4 was reopened with dissection down to the spinous processes of lumbar 3 and lumbar 4, extending bilaterally to the junction of the pars and the transverse processes of lumbar 3 and lumbar 4. Previous hemilaminotomy on the right at lumbar 3-4 was identified and significant scar tissue encountered. Utilizing fluoroscopy as well as stereotaxis and live neuro monitoring, pedicle screws were instituted bilaterally at lumbar 3 and lumbar 4. A drill was used for the stereotactically localized insertion site through the cortical bone. Under stereotactic guidance, an awl was utilized to create an appropriate trajectory through the pedicles bilaterally at lumbar 3 and bilaterally at lumbar 4 into the vertebral bodies. A ball tip probe was utilized to verify the integrity of the trajectories. With stereotaxis and live neuro monitoring, a tap was utilized to further develop the trajectories at lumbar 3 and lumbar 4 bilaterally through the pedicles into the bodies. [employer] hardware was utilized for instrumentation. Two pedicle screws were instituted bilaterally at lumbar 3 and bilaterally at lumbar 4. Prior to this, the spinous processes lateral to these locations were dissected free and decorticated as well as the adjacent bone, allograft substrate was utilized in addition to some autograft, taken from the laminectomy to be described shortly. Stereotaxis was also utilized to acquire bone marrow from the iliac crest using a separate fascial incision utilizing stereotaxis as well as a Jamshidi needle and a syringe. This was mixed with the allograft substrate. Once these things were completed, attention was turned to the decompression laminectomy with discectomy. The right hemilaminotomy at L3-L4 was identified and scar tissue was gently dissected away from the margins of the previous hemilaminotomy. A right hemilaminectomy was then performed at lumbar 3 and lumbar 4. Significant scar tissue was encountered and gently dissected free from the thecal sac and the underlying neural elements. A right laminectomy was then performed at this location. Once the laminectomy was complete, the neural elements were gently retracted medially and a large herniated disk fragment was encountered. This was gently teased posterolaterally with a blunt nerve hook as well as a Wally and removed with pituitary rongeur. Once discectomy and laminectomy were completed, the neuromonitoring potentials were noted to be improved compared to baseline. Disk and decompression material was sent as specimen for permanent section. Once decompression was complete, the regions of decorticated bone at the transverse processes bilaterally at lumbar 3 and lumbar 4 were instituted with the combination of allograft and autograft, some of the laminectomy bone was also utilized with the allograft. Additionally, the left lamina and spinous processes at lumbar 3-4 were decorticated with a pneumatic drill and an additional fusion material substrate was placed in this location as well. The wound was generously irrigated with antibiotic irrigation prior to final closure. Pristine hemostasis was achieved with FloSeal, cottonoids and some use of bipolar electrocautery as well as generous irrigation. Upon completion of the placement of substrate, rods were instituted in the screw heads and set screw caps were instituted and secured according to gravure press set up operator's specification. The fusion construct was visualized with fluoroscopy and noted to be in good position. After irrigation and hemostasis, the muscle and fascia were then reapproximated with 0 Vicryl in a simple interrupted fashion. Prior to closure, the stereotactic array was removed from the caudal spinous process without problems. The subcutaneous tissues were then reapproximated with 2-0 Vicryl in interrupted inverted fashion. Skin was reapproximated with 4-0 Vicryl in a running subcuticular fashion. Mastisol and Steri-Strips were applied and the wound was dressed with Xeroform, Telfa, 4 x 4 and Tegaderm. At the end of procedure, all needle and sponge counts were correct x 2. The patient was extubated in the operating room and taken to recovery in stable condition. There were no intraprocedural complications apparent. RODDY GÓMEZ MD DR: GIUSEPPE/usman JOB#: [id number] / [id number] MARBELLA
--- NOTE | 2018-12-29 14:53 | CONS ---
DATE OF CONSULTATION: 12/09/2018 HISTORY AND PHYSICAL/CONSULTATION REPORT REASON FOR CONSULTATION: Right leg weakness. HISTORY OF PRESENT ILLNESS: The patient is a 43-year-old female who previously underwent a right lumbar 3-4 diskectomy with decompression in 03/2018 with good result. She had been doing well until over the past several days, she developed symptoms in her right leg in a similar distribution as previous to a prior surgery with associated right leg weakness and pain. She denies a clear inciting event or injury. Reportedly, she had one episode of incontinence in the Emergency Department. PAST MEDICAL HISTORY: Positive for hypertension, anemia, systemic lupus erythematosus, history of the aforementioned laminectomy, decompression of lumbar 3-4. She also had another laminectomy, decompression contralaterally on the left at lumbar 4-5 in the past. HOME MEDICATIONS: Include Tylenol No. 3, diltiazem, turmeric, prednisone, Cymbalta, gabapentin, leflunomide, Zyrtec, ranitidine, omeprazole. ALLERGIES: LISTED TO HYDROCODONE, FENTANYL, METOCLOPRAMIDE, MORPHINE, OXYCODONE, PROCHLORPERAZINE and reportedly, she is able to tolerate IV Dilaudid without problems. FAMILY HISTORY: Hypertension. SOCIAL HISTORY: She does not use alcohol, smoke or use illicit drugs. She is . REVIEW OF SYSTEMS: EXTREMITIES: Positive for anxiety, muscular weakness and problems with numbness and tingling in the right lower extremity, gait disturbance and right lower extremity pain. GENERAL: She denies chills, night sweats, fatigue, malaise, appetite changes. EYES: No blurry vision, no decreased vision, no double vision. No dry eyes, no excessive tearing, no eye pain. HEENT: No headaches, visual changes, hearing changes, nasal congestion, nasal discharge, oral lesions, sinus pain. RESPIRATORY: No cough, hemoptysis, orthopnea, pleuritic pain or shortness of breath. CARDIOVASCULAR: No chest pain, palpitations, or orthopnea. She reports history of hypertension. GENITOURINARY: Has one episode of incontinence in the Emergency Department. She denies other changes. NEUROLOGICAL: As above with weakness in the right lower extremity, numbness and tingling and right lower extremity pain. SKIN: No dry skin, eczema, hair changes, lumps, ____ changes or mottling. HEMATOLOGICAL: No bleeding problems, blood clots or easy bruising, night sweats, pallor, swollen lymph nodes or other changes. PHYSICAL EXAMINATION: VITAL SIGNS: Temperature 98.3, pulse 79, respirations 16, blood pressure 132/76, O2 sat is 95% on room air. GENERAL: She is awake, alert and oriented x 3. She is cooperative. She is in no acute distress. HEENT: Head is atraumatic. Her pupils are equal, round and reactive to light. Extraocular movements are intact. LUNGS: She is in normal respiratory rate. CARDIOVASCULAR: Pulse is regular with a regular rate and equal in 4 extremities. ABDOMEN: Soft, nontender. EXTREMITIES: She has no cyanosis, clubbing or edema. SKIN: She has no rashes or skin breakdown. No significant skin lesions. NEUROLOGIC: Cranial nerves 2-12 are intact bilaterally. Strength is 5/5 in all major muscle groups in bilateral upper and left lower extremity. There is inconsistent effort with proximal right lower extremity secondary to right lower extremity pain. Strength is 0/5 in left dorsiflexion and left plantarflexion, 3-/5 left knee flexion and knee extension. There is decreased sensation on light touch in the right lower extremity with decreased reflexes in the right lower extremity, relative to the left. Upper extremity reflexes are symmetric. IMAGING: At this time, there is a noncontrast CT image, which shows no obvious acute lesions with prior aforementioned decompressions at lumbar 3-4 and lumbar 4-5. ASSESSMENT AND PLAN: This is a 43-year-old female with right lower extremity symptoms as above. She has had a prior lumbar 3-4 decompression with diskectomy and is highly suspicious that she has recurrence of this. We will acquire an MRI and pending those results. We anticipate potential decompression at lumbar 3-4. If she does have a recurrent herniated disk at this location, fusion may be indicated as she has had multiple recurrences at the same location. We will continue to follow and proceed as results come out. CANDIS GÓMEZ MD DR: GIUSEPPE/usman JOB#: [id number] / [id number]
== END 2018-12-12 13:09 | disposition home or self-care (01) | DRG 460 ==
LOC: ER 14:25 → 5 SOUTH 16:21 → UNDODISIN 12-10 16:20 → 4 SOUTHEST 12-10 20:00
PROVIDERS: ADMIT Internal Medicine; ATTEND Internal Medicine
PROC: 0SB20ZZ Excision of Lumbar Vertebral Disc, Open Approach (ICD-10-PCS; 2018-12-10)
PROC: 01NB0ZZ Release Lumbar Nerve, Open Approach (ICD-10-PCS; 2018-12-10)
PROC: 4A11X4G Monitoring of Peripheral Nervous Electrical Activity, Intraoperative, External Approach (ICD-10-PCS; 2018-12-10)
PROC: 0SG0071 Fusion of Lumbar Vertebral Joint with Autologous Tissue Substitute, Posterior Approach, Posterior Column, Open Approach (ICD-10-PCS; principal; 2018-12-10 12:30)
DX: M51.16 Intervertebral disc disorders with radiculopathy, lumbar region (principal); R32 Unspecified urinary incontinence; I10 Essential (primary) hypertension; G89.29 Other chronic pain; M32.9 Systemic lupus erythematosus, unspecified; Z79.52 Long term (current) use of systemic steroids; Z82.49 Family history of ischemic heart disease and other diseases of the circulatory system; Z90.49 Acquired absence of other specified parts of digestive tract; Z88.5 Allergy status to narcotic agent; Z88.8 Allergy status to other drugs, medicaments and biological substances
CPT/HCPCS: 36415; 72131; 72146; 72148; 76000; 80053; 81001; 81025; 85025; 88304; 88311; 96374; 96375; A7015; C1713; J0690; J1100; J1170; J1200; J2001; J2250; J2405; J2704; J2710; J2930; J3010; J3490; J7120; Q0163; 97116; 97530; 97535; 99285-25; G0378